=== PATIENT | male | born 1965 | race Caucasian/White ===

== ENCOUNTER 2021-05-07 15:26 | Emergency (ER) | payer MEDICARE, SELFPAY ==
--- NOTE | ~2021-05-07 | CT_ITS ---
EXAMINATION: CT abdomen pelvis w con DATE: 05/07/2021 16:21 INDICATION: Right abdominal pain. TECHNIQUE: Computed tomography (CT) of the abdomen and pelvis was performed with 100 mL Omnipaque 350 intravenous contrast. Automated exposure control and iterative reconstruction technique were employe d. The dose-length product was 283.82 mGy-cm. COMPARISON: CT abdomen and pelvis 12/17/2016 FINDINGS: There is a 6 mm nodule in right lower lobe. No pleural effusion. The heart size is normal. No pericardial effusion. The liver is normal. 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 The pancreas and adrenal glands are normal. There are two cysts in right kidney measuring up to 2.4 cm. There is a 2 mm stone in right kidney. There are 2 stones in left kidney dann uring up to 4 mm. There is an anastomosis in the rectum. There are no dilated loops of bowel. The hebert endix is normal. There is fat stranding adjacent to the duodenum, consistent with duodenitis. There a re no pathologically enlarged lymph nodes. There is no free intraperitoneal fluid. There is moderate lower lumbar spondylosis. IMPRESSION: 1. Duodenitis. 2. 6 mm pulmonary nodule, probably benign. Noncontrast low-dose chest CT is recommended in 6 months. Reviewed, dictated and finalized at location [facility]. IMPRESSION: 1. Duodenitis. 2. 6 mm pulmonary nodule, probably benign. Noncontrast low-dose chest CT is rec ommended in 6 months.
[2021-05-07 15:29] VITALS: BP 124/78; PULSE 96; RESP 20; TEMP 36.7; O2SAT 99
[2021-05-07 15:47] LABS: Basophils Absolute Auto 0.1 K/mm3 (0.0-0.1); Basophils Percent Auto 0.7 % (0.2-1.2); Eosinophils Absolute Auto 0.2 K/mm3 (0-0.3); Eosinophils Percent Auto 2.9 % (0-4.4); Hematocrit 45.5 % (42.0-52.0); Hemoglobin 14.8 g/dL (14.0-18.0); Immature Granulocyte Absolute 0.02 K/mm3 (0.00-0.031); Immature Granulocyte Percent A 0.2 % (0-0.5); Lymphocytes Absolute Auto 2.63 K/mm3 (0.9-3.2); Lymphocytes Percent Auto 31.6 % (18.3-44.2); Mean Corpuscular HGB Conc 32.5 g/dl (32-36); Mean Platelet Volume 9.7 fl (7.4-10.4); Monocytes Absolute Auto 0.9 K/mm3 (0.1-0.6); Monocytes Percent Auto 11.2 % (2.6-8.5); Neutrophils Absolute Auto 4.4 K/mm3 (1.3-6.7); Neutrophils Percent Auto 53.4 % (45.5-73.1); Platelet Count Result 248 k/mm3 (150-375); Red Blood Count 5.29 M/mm3 (4.6-6.20); Red Cell Distribution Width 13.4 % (11.5-14.5); White Blood Count 8.3 K/mm3 (4.5-10.0)
[2021-05-07 15:58] LABS: Alanine Aminotransferase 17 U/L (4-50); Albumin Level 4.5 g/dL (3.5-5.1); Alkaline Phosphatase 46 U/L (38-126); Anion Gap 10 mmol/L (8-16); Aspartate Amino Transferase 42 U/L (17-59); Bilirubin,Total 0.5 mg/dL (0.2-1.3); Blood Urea Nitrogen 14 mg/dL (9-20); Calcium 9.5 mg/dL (8.4-10.2); Carbon Dioxide 24 mmol/L (22-30); Chloride 107 mmol/L (98-107); Estimated CRCL calculation 67 ml/min; Estimated Glomerular Filt Rate > 60; Glucose 91 mg/dL (75-110); Lipase 55 U/L (23-300); Potassium 4.1 mmol/L (3.4-5.0); Sodium 141 mmol/L (137-145)
--- NOTE | 2021-05-07 16:04 | ED.ABDPAIN ---
HPI - Abdominal Pain General Chief Complaint: Abdominal Pain Stated Complaint: abd pain/sweats Time Seen by Provider: 05/07/21 15:53 Source: RN notes reviewed History of Present Illness HPI narrative: Patient presents to emergency department from home for abdominal pain. Patient states that symptoms began 3 days ago he states for the past 2 days he has had some generalized abdominal pain as well as nausea vomiting and diarrhea but states that today the nausea vomiting improved but he continues have pain in his right upper quadrant pain described as sharp and stabbing does not radiate he denies any fevers or chills chest pain shortness of breath or any other symptoms states he is not taking pain medication today patient states he has been taking a large amount of ibuprofen as he has chronic neck pain Related Data Allergies Allergy/AdvReac Type Severity Reaction Status Date / Time tramadol Allergy Unknown Nausea and Verified 05/07/21 15:56 Vomiting NSAIDS (Non-Steroidal AdvReac Mild STOMACH Verified 05/07/21 15:56 Anti-Inflamma UPSET hydrocodone AdvReac Unknown GI UPSET Verified 05/07/21 15:56 Review of Systems Review of Systems: Narrative: Gen.: Denies fevers or chills ENT: Denies congestion Respiratory: Denies shortness of breath or cough CV: Denies chest pain or palpitations GI: See HPI denies burning, urgency, frequency or hematuria Musculoskeletal: Denies back pain or muscle pain Neuro: Denies numbness, tingling, weakness or focal weakness Skin: Denies rash Except as documented, all other systems reviewed and negative PMFSH Past Medical History Medical History (Updated 05/07/21 @ 16:48 by Clif Mathew DO) Patient denies significant medical history Family History Family History (Updated 06/11/16 @ 23:19 by DOCTOR UNKNOWN) Mother Family history of diabetes mellitus in first degree relative Social History Social History (Updated 05/07/21 @ 16:05 by Clif Mathew DO) Smoking status: Never smoker Alcohol intake: current Exam Narrative: Exam Narrative: APPEARANCE: No acute distress, nontoxic, resting in bed HEENT: Normocephalic, atraumatic, OMM RESPIRATORY: No respiratory distress, clear to auscultation bilaterally with no rhonchi wheezing or rales CARDIOVASCULAR: RRR s murmur ABDOMINAL: Soft nondistended tender palpation in epigastric right upper quadrant, no tenderness left upper quadrant, left lower quadrant right lower quadrant no rebound or guarding MUSCULOSKELETAl: Moves all extremities. No clubbing, cyanosis or edema. NEURO: Awake and alert. Following commands, speech normal, no focal deficits SKIN:: Warm, dry. Normal Color PSYCHIATRIC: Normal affect/mood Course Course Emergency Course: Called discussed with Dr. Monroe for GI presentation work-up recommends patient be started on Protonix 40 mg twice a day follow-up in the office to be scheduled for endoscopy Patient states that they are feeling much better at this time. States abdominal pain has improved.. Repeat abdominal exam shows the patient's abdomen to be soft with no surgical abdomen present discussed with patient results of workup and diagnosis. Discussed need for follow-up with primary care physician, reasons to return to the emergency department in proper use of medication. Patient understands and agrees to current treatment plan. Discussed with patient decreasing use of ibuprofen and using Tylenol instead Vital Signs Vital signs: Vital Signs Temperature 98.0 F 05/07/21 15:29 Pulse Rate 96 05/07/21 15:29 Respiratory Rate 20 05/07/21 15:29 Blood Pressure 124/78 05/07/21 15:29 Pulse Oximetry 99 05/07/21 15:29 Temperature 98.0 F 05/07/21 15:29 Pulse Rate 96 05/07/21 15:29 Respiratory Rate 20 05/07/21 15:29 Blood Pressure 124/78 05/07/21 15:29 Pulse Oximetry 99 05/07/21 15:29 MDM - Abdominal Pain MDM Narrative Medical decision making narrative: Patient's abdomen is soft without sig
[2021-05-07] MEDS: SODIUM CHLORIDE 0.9% IV 1,000 ML 999 ML IV CONT (16:19)
[2021-05-07 16:23] LABS: Add Urine Microscopic? YES; Appearance Urine Clear (Clear); Bacteria Urine Trace /hpf; Bilirubin Urine Negative (Negative); Blood Urine 2+ (Negative); Color Urine Yellow (Yellow); Glucose Urine UA Negative (Negative); Ketones Urine Negative (Negative); Leukocyte Esterase Ur Negative LEU/UL (Negative); Mucus Urine Rare /lpf; Nitrate Urine Negative (Negative); Protein Urine Negative (Negative); RBC Urine 0-2 /hpf (0-2); Specific Grav Ur 1.018 (1.001-1.035); Urobilinogen Urine Negative mg/dL (<2.0); WBC Urine 0-3 /hpf
[2021-05-07] MEDS: PANTOPRAZOLE SODIUM IV 40 MG VIAL IV PUSH (16:48)
[2021-05-07 17:41] VITALS: BP 125/78; PULSE 88; RESP 18; O2SAT 100
== END 2021-05-07 17:43 | disposition home or self-care (01) ==
PROVIDERS: Emergency Medicine; Emergency Provider Emergency Medicine
DX: K29.80 Duodenitis without bleeding (principal)
CPT/HCPCS: 36415; 74177; 80053; 81001; 83690; 85025; 96361; 96374; 99284; C9113; J7030; Q9967

== ENCOUNTER → 2021-05-16 01:16 | Outpatient (CLI) | payer MEDICARE, SELFPAY ==
[2021-05-16 16:44] LABS: SARS-CoV-2 RNA PCR Negative
== END ==
PROVIDERS: Visit Provider Internal Medicine Gastroenterology
DX: Z01.812 Encounter for preprocedural laboratory examination (principal); Z20.822 Contact with and (suspected) exposure to COVID-19
CPT/HCPCS: C9803; U0003; U0005

== ENCOUNTER 2021-05-20 01:41 | Day surgery (SDC) | payer MEDICARE, SELFPAY ==
[2021-05-14 10:48] VITALS: BMI 22.7
[2021-05-20 10:00] VITALS: BP 109/78; PULSE 61; RESP 18; TEMP 36; O2SAT 100; BMI 22.8
[2021-05-20] MEDS: LACTATED RINGERS 1,000 ML 150 ML IV CONT (10:07)
--- NOTE | 2021-05-20 10:57 | PM.HPGS ---
History of Present Illness History of Present Illness Consent: Risks, benefits, and alternatives have been discussed and questions answered. Patient agrees to proceed with procedure. Chief complaint: duodenitis Narrative: Osmel Esquivel is a 55 year old male with right upper quadrant pain, nausea and vomiting. He has been on NSAIDs and is suspected of having an ulcer. CT scan showed duodenitis with stranding around the duodenum. He is also having colonoscopy for screening Review of Systems Review of Systems: All systems reviewed & are unremarkable except as noted in HPI and below PMFSH Past Medical History Medical History Patient denies significant medical history Family History Family History Mother Family history of diabetes mellitus in first degree relative Social History Social History Smoking packs per day: 1 Smoking cigarettes per day: 20.0 Years smoked: 40 Smoking pack-years: 40.00 Smoking status: Current every day smoker Tobacco type: cigarettes Additional smoking assessment comments: CUTTING BACK CURRENTLY DOWN TO HALF A PACK A DAY Alcohol intake: current Substance use: current Substance use type: marijuana Other substance usage details: MEDICAL CARD Living arrangements: with family Spiritual care concerns: No Meds Home Medications and Allergies Home Medications Medication Instructions Recorded Confirmed Type pantoprazole [Protonix] 40 mg PO BID #40 tablet 05/07/21 05/20/21 Rx Allergies Allergy/AdvReac Type Severity Reaction Status Date / Time tramadol Allergy Severe Gastrointestinal Verified 05/20/21 09:57 Upset NSAIDS (Non-Steroidal AdvReac Mild STOMACH Verified 05/20/21 09:57 Anti-Inflamma UPSET Vital Signs Vital Signs - 24 hr 05/20/21 10:00 Temperature 36.0 C L Pulse Rate 61 Respiratory Rate 18 Blood Pressure 109/78 Pulse Oximetry 100 Exam Const: General: alert Orientation/consciousness: patient oriented x3 Resp: Auscultation: clear to auscultation bilaterally Cardio: Rhythm: regular rhythm GI: GI Palp: Yes Soft to palpation and No Tenderness to palpation present (GI) Neuro: General: patient oriented x3 Assessment and Plan Assessment and plan (1) Abnormal CT scan, gastrointestinal tract: Code(s): R93.3 - Abnormal findings on diagnostic imaging of other parts of digestive tract Status: Acute Assessment and Plan: EGD with possible biopsy or dilatation or cautery. (2) Colon cancer screening: Code(s): Z12.11 - Encounter for screening for malignant neoplasm of colon Status: Acute Assessment and Plan: Colonoscopy with possible biopsy or polypectomy or cautery or injection of substances.
--- NOTE | 2021-05-20 11:07 | WPDANESEPPF ---
Anes - Initial Pre Proc Eval Procedure: Operation Date: 05/20/21 11:00 Proposed Procedures p Esophagogastroduodenoscopy - Usman Monroe MD Date/Time: 05/20/21 11:07 Surgeon: Usman Monroe MD Pre Op Diagnosis: duodenitis Patient Data Age: 55 Gender: M Height: 1.78 m Weight: 72.2 kg Last Vital Signs Temp 96.8 F L 05/20/21 10:00 Pulse 61 05/20/21 10:00 Resp 18 05/20/21 10:00 BP 109/78 05/20/21 10:00 Pulse Ox 100 05/20/21 10:00 Allergies Allergy/AdvReac Type Severity Reaction Status Date / Time tramadol Allergy Severe Gastrointestinal Verified 05/20/21 09:57 Upset NSAIDS (Non-Steroidal AdvReac Mild STOMACH Verified 05/20/21 09:57 Anti-Inflamma UPSET Home Medications Medication Instructions Recorded Confirmed Type pantoprazole [Protonix] 40 mg PO BID #40 tablet 05/07/21 05/20/21 Rx Patient hx anesthesia problems: none Family hx anesthesia problems: none PMFSH Past Medical History Medical History (Updated 05/20/21 @ 11:07 by Mynor Youngblood MD) GERD (gastroesophageal reflux disease) H/O: CVA (cerebrovascular accident) was found to have a glioblastoma at that time secondary to; had definitive surgery Patient denies significant medical history Family History Family History Mother Family history of diabetes mellitus in first degree relative Social History Social History Smoking packs per day: 1 Smoking cigarettes per day: 20.0 Years smoked: 40 Smoking pack-years: 40.00 Smoking status: Current every day smoker Tobacco type: cigarettes Additional smoking assessment comments: CUTTING BACK CURRENTLY DOWN TO HALF A PACK A DAY Alcohol intake: current Substance use: current Substance use type: marijuana Other substance usage details: MEDICAL CARD Living arrangements: with family Spiritual care concerns: No Anes - Eval Final PreProcedure Day of Procedure 05/20/21 11:07 Patient weight: normal Heart: regular rate and rhythm Lungs: clear to auscultation Airway: Mallampati scale class II Neurological: alert and oriented Last oral intake: >/= 8 hours ASA classification: III Emergent: no Anesthetic plan: proceed Anesthesia type and monitoring: general GIVS and standard monitoring Informed Consent: The patient's anesthetic plan and its attendant risks and benefits were discussed with the patient/family/POA. Questions were solicited and answers provided to the satisfaction of the patient/family/POA.
[2021-05-20] MEDS: BENZOCAINE (*SP) 60 ML SPRAY CAN (HURRICAINE) 1 SPRAY MUCOUS MEM (11:46)
[2021-05-20] MEDS: SIMETHICONE ORAL SUSPENSION 20 MG/0.3 ML 30 ML BOTTLE 0.6 ML IRRIGATION (11:51)
[2021-05-20 11:59] VITALS: BP 101/67; PULSE 54; RESP 22; O2SAT 99
[2021-05-20 12:09] VITALS: BP 93/66; PULSE 55; RESP 20; O2SAT 100
[2021-05-20 12:19] VITALS: BP 99/65; PULSE 54; RESP 18; O2SAT 100
== END 2021-05-20 12:31 | disposition home or self-care (01) ==
PROVIDERS: Visit Provider Internal Medicine Gastroenterology
PROC: 0DJ08ZZ Inspection of Upper Intestinal Tract, Via Natural or Artificial Opening Endoscopic (ICD-10-PCS; CPT 43235; principal; 2021-05-20 11:00)
DX: K44.9 Diaphragmatic hernia without obstruction or gangrene (principal); K29.80 Duodenitis without bleeding; K21.9 Gastro-esophageal reflux disease without esophagitis; Z86.73 Personal history of transient ischemic attack (TIA), and cerebral infarction without residual deficits; F17.210 Nicotine dependence, cigarettes, uncomplicated; F12.90 Cannabis use, unspecified, uncomplicated
CPT/HCPCS: 43239; 87081; 88305; J2704; J7120

== ENCOUNTER 2021-05-24 16:04 | Emergency (ER) | payer MEDICARE, SELFPAY ==
[2021-05-24 16:15] VITALS: BP 119/74; PULSE 82; RESP 16; TEMP 37.2; O2SAT 99
[2021-05-24] MEDS: TETANUS,DIPHTHERIA,AC PERTUSSIS ADULT (0.5 ML) BOOSTRIX IM (16:40)
--- NOTE | 2021-05-24 16:47 | ED.GENADULT ---
HPI - General Adult General Chief complaint: Wound/Laceration Stated complaint: Laceration on foot Source: patient Mode of arrival: ambulatory Limitations: no limitations History of Present Illness HPI narrative: This is a 56-year-old male who presents for evaluation of laceration to the inner aspect of the right foot. He indicates he was walking in his garage barefooted when he cut himself on a piece of metal. Reports a minimal amount of pain in the affected area, without descriptive quality or numerical rating. Denies loss of range of motion and paresthesias. He is not diabetic. Date of last tetanus unknown. He is ambulatory into the facility today. No additional complaints or concerns. Related Data Allergies Allergy/AdvReac Type Severity Reaction Status Date / Time tramadol Allergy Severe Gastrointestinal Verified 05/24/21 17:01 Upset NSAIDS (Non-Steroidal AdvReac Mild STOMACH Verified 05/24/21 17:01 Anti-Inflamma UPSET Review of Systems Review of Systems: Narrative: CONSTITUTIONAL: Denies fever, chills, or sweats. EYES: Denies visual changes, redness, or discharge. ENT: Denies rhinorrhea, congestion, sore throat, or otalgia. CARDIOVASCULAR: Denies chest pain, palpitations, or edema. RESPIRATORY: Denies cough or dyspnea. GASTROINTESTINAL: Denies abdominal pain, nausea, vomiting, or diarrhea. GENITOURINARY: Denies dysuria or hematuria. SKIN: Reports laceration of the right foot. Denies rash or itching. MUSCULOSKELETAL: Reports pain in the right foot. Denies back pain NEUROLOGIC: Denies headache, numbness, dizziness, or weakness. PSYCHIATRIC: Denies anxiety or depression. [facility] Past Medical History Medical History (Updated 05/24/21 @ 17:42 by Jose Donnelly, HARDWARE MANAGER, ) Duodenitis GERD (gastroesophageal reflux disease) H/O: CVA (cerebrovascular accident) was found to have a glioblastoma at that time secondary to; had definitive surgery Patient denies significant medical history Family History Family History Mother Family history of diabetes mellitus in first degree relative Social History Social History Smoking packs per day: 1 Smoking cigarettes per day: 20.0 Years smoked: 40 Smoking pack-years: 40.00 Smoking status: Current every day smoker Tobacco type: cigarettes Additional smoking assessment comments: CUTTING BACK CURRENTLY DOWN TO HALF A PACK A DAY Alcohol intake: current Substance use: current Substance use type: marijuana Other substance usage details: MEDICAL CARD Spiritual care concerns: No Exam Narrative: Exam Narrative: GENERAL: Well-appearing, well-nourished, and in no acute distress. HEAD: Normocephalic, atraumatic. EYES: PERRLA and EOMI. ENT: Nares clear, no rhinorrhea or epistaxis. Mucous membranes moist. Oropharynx without tonsillar hypertrophy exudate or other lesions. Bilateral TMs pearly valdez nonbulging NECK: Supple. No adenopathy or masses. No carotid bruits or JVD CHEST: Clear to auscultation. No respiratory distress. No wheezes rales or rhonchi HEART: Regular rate and rhythm. No murmur heard. Normal peripheral pulses. ABDOMEN: Soft, nontender, nondistended, normal active bowel sounds. EXTREMITIES: Normal range of motion. No edema. SKIN: Approximately 1.5 cm laceration in a flap formation overlying the dorsal aspect of the medial right foot NEURO: No focal deficits. Alert and oriented x3. PSYCH: Normal mood and affect. Course Course Emergency Course: This is a 56-year-old male that presented with complaints of laceration to the right foot. After a thorough irrigation, laceration was repaired with 5 sutures and patient tolerated well. He was updated on tetanus. He was advised to follow-up in 7 to 10 days for suture removal. Advised on wound care. He should seek emergent medical condition for fever, chills, purulent drainage.
== END 2021-05-24 17:51 | disposition home or self-care (01) ==
PROVIDERS: Emergency Provider Nurse Practitioner
DX: S91.311A Laceration without foreign body, right foot, initial encounter (principal); W45.8XXA Other foreign body or object entering through skin, initial encounter; Z23 Encounter for immunization; F17.210 Nicotine dependence, cigarettes, uncomplicated; K21.9 Gastro-esophageal reflux disease without esophagitis; Z86.73 Personal history of transient ischemic attack (TIA), and cerebral infarction without residual deficits; Z85.841 Personal history of malignant neoplasm of brain
CPT/HCPCS: 12001; 90471; 90715; 99212; G0463

== ENCOUNTER 2022-07-29 11:34 | Emergency (ER) | payer MEDICARE, SELFPAY ==
--- NOTE | 2022-07-29 11:36 | PC.NURSE ---
patient presented to triage stating he was having a mini stroke then proceeded to leave the triage area to go outside to make a phone call before he checked in to be seen. then left again to take another phone call before checkrd in
[2022-07-29 11:44] VITALS: BP 127/86; PULSE 84; RESP 16; TEMP 36.6; O2SAT 99
--- NOTE | 2022-07-29 11:53 | ECG_ITS ---
Measurements Intervals [place] Rate: 56 P: 66 ME: 170 QRS: 63 QRSD: 96 T: 54 QT: 403 QTc: 391 Interpretive Statements SINUS BRADYCARDIA DELAYED PRECORDIAL R/S TRANSITION BASELINE ARTIFACT- I, III, AVR, AVL, AVF BORDERLINE ECG NO PREVIOUS ECG AVAILABLE FOR COMPARISON Electronically Signed On 07-29-2022 13:39:50 CDT by Harman Concepcion D.O.
[2022-07-29 12:47] LABS: Basophils Percent Auto 0.6 % (0.2-1.2); Eosinophils Absolute Auto 0.1 K/mm3 (0-0.3); Eosinophils Percent Auto 1.9 % (0-4.4); Hematocrit 46.5 % (42.0-52.0); Hemoglobin 15.2 g/dL (14.0-18.0); Immature Granulocyte Absolute 0.02 K/mm3 (0.00-0.031); Immature Granulocyte Percent A 0.3 % (0-0.5); Lymphocytes Absolute Auto 1.81 K/mm3 (0.9-3.2); Lymphocytes Percent Auto 26.5 % (18.3-44.2); Mean Corpuscular HGB Conc 32.7 g/dl (32-36); Mean Corpuscular Hemoglobin 28.5 pg (26-34); Mean Corpuscular Volume 87.1 fl (80-100); Mean Platelet Volume 9.8 fl (7.4-10.4); Monocytes Absolute Auto 0.6 K/mm3 (0.1-0.6); Monocytes Percent Auto 8.2 % (2.6-8.5); Neutrophils Absolute Auto 4.3 K/mm3 (1.3-6.7); Neutrophils Percent Auto 62.5 % (45.5-73.1); Platelet Count Result 247 k/mm3 (150-375); Red Blood Count 5.34 M/mm3 (4.6-6.20); Red Cell Distribution Width 13.5 % (11.5-14.5); White Blood Count 6.8 K/mm3 (4.5-10.0)
[2022-07-29 13:05] LABS: Alanine Aminotransferase 18 U/L (6-50); Albumin Level 4.6 g/dL (3.5-5.1); Alkaline Phosphatase 59 U/L (38-126); Anion Gap 11 mmol/L (8-16); Aspartate Amino Transferase 24 U/L (17-59); Bilirubin,Total 0.5 mg/dL (0.2-1.3); Blood Urea Nitrogen 14 mg/dL (9-20); Calcium 9.3 mg/dL (8.4-10.2); Carbon Dioxide 23 mmol/L (22-30); Chloride 107 mmol/L (98-107); Estimated CRCL calculation 66 ml/min; Estimated Glomerular Filt Rate > 60; Glucose 91 mg/dL (65-110); Potassium 3.9 mmol/L (3.4-5.0); Sodium 141 mmol/L (137-145)
[2022-07-29 13:23] VITALS: BP 105/77; PULSE 58; RESP 15; O2SAT 99
[2022-07-29] MEDS: MECLIZINE HCL 25 MG TABLET PO (13:24)
--- NOTE | 2022-07-29 14:01 | ED.NEUROSD ---
HPI - Neuro Symptoms/Deficit General Chief Complaint: Neuro Symptoms/Deficit Stated Complaint: possible seizure Time Seen by Provider: 07/29/22 12:00 History of Present Illness HPI Narrative: Patient is a 57-year-old male who presents ER with dizziness. Reports he got up out of bed today and became very dizzy. He was sweaty and nauseated. Fell onto the ground. He was laying there shaking and felt his head hit the ground couple times. No bleeding or swelling. No blood thinners. Denies fevers or chills. Spinning dizziness is what was perceived. Symptoms continue to worsen if he shakes his head yes or does position changes. They are not as intense as earlier. No sinus congestion or sore throat or cough. No ringing in the ears or muffled hearing. Related Data Allergies Allergy/AdvReac Type Severity Reaction Status Date / Time tramadol Allergy Severe Gastrointestinal Verified 05/24/21 17:01 Upset NSAIDS (Non-Steroidal AdvReac Mild STOMACH Verified 05/24/21 17:01 Anti-Inflamma UPSET Review of Systems Review of Systems: All systems reviewed & are unremarkable except as noted in HPI and below Constitutional: Constitutional: Denies chills, Denies fatigue and Denies fever(s) ENT: Denies nasal congestion and Denies sore throat Cardiovascular: Cardiovascular: Denies chest pain, Denies rapid heart rate and Denies radiating jaw, neck or arm pain Respiratory: Respiratory: Denies cough, Denies dyspnea and Denies wheezing Gastrointestinal: Gastrointestinal: Denies abdominal pain, Reports nausea and Denies vomiting Neurologic: Reports dizziness, Denies syncope, Denies headache(s), Denies focal weakness and Denies numbness PMFSH Past Medical History Medical History (Updated 07/29/22 @ 14:22 by Hayden Parker MD) Alopecia universalis Duodenitis GERD (gastroesophageal reflux disease) H/O: CVA (cerebrovascular accident) 2/2 pituitary tumor Kidney stones Patient denies significant medical history Spinal stenosis Surgical History Surgical History (Updated 07/29/22 @ 14:19 by Hayden Parker MD) H/O brain surgery 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 History of left heart catheterization Family History Family History Mother Family history of diabetes mellitus in first degree relative Social History Social History Smoking packs per day: 1 Smoking cigarettes per day: 20.0 Years smoked: 40 Smoking pack-years: 40.00 Smoking status: Current every day smoker Tobacco type: cigarettes Additional smoking assessment comments: CUTTING BACK CURRENTLY DOWN TO HALF A PACK A DAY Alcohol intake: current Substance use: current Substance use type: marijuana Other substance usage details: MEDICAL CARD Spiritual care concerns: No Exam Narrative: GENERAL: Well-appearing, well-nourished, and in no acute distress. HEAD: Normocephalic, atraumatic. EYES: PERRL and EOMI. ENT: TMs normal bilaterally. NECK: Supple. CHEST: Clear to auscultation. No respiratory distress. HEART: Regular rate and rhythm. Normal peripheral pulses. ABDOMEN: Soft, nontender, nondistended. EXTREMITIES: Normal range of motion. No edema. NEURO: Reproducible dizziness with looking down. Alert and oriented x3. Ambulates with steady gait. PSYCH: Normal mood and affect. Course Course Emergency Course: Resting comfortably. Symptoms improved but not totally abated with meclizine. Discussed home treatment and patient verbalized understanding. Charting had said that patient had glioblastoma in the past but patient reports that is not true and he had a benign pituitary tumor that was excised and he required no chemo or radiation. Vital Signs Vital signs: Vital Signs Temperature 97.9 F 07/29/22 11:44 Pulse Rate 84 07/29/22 11:44 Respiratory Rate 16 07/29/22 11:44 Blood Pressure 127/86 07/29/22 1
[2022-07-29 15:04] VITALS: BP 111/75; PULSE 70; RESP 14; O2SAT 98
== END 2022-07-29 15:05 | disposition home or self-care (01) ==
PROVIDERS: Emergency Medicine; Emergency Provider Emergency Medicine
DX: R42 Dizziness and giddiness (principal); K21.9 Gastro-esophageal reflux disease without esophagitis; Z87.442 Personal history of urinary calculi; Z86.73 Personal history of transient ischemic attack (TIA), and cerebral infarction without residual deficits; F17.210 Nicotine dependence, cigarettes, uncomplicated; R00.1 Bradycardia, unspecified
CPT/HCPCS: 36415; 80053; 85025; 93005; 99283; A9270

== ENCOUNTER 2023-04-24 16:02 | Emergency (ER) | payer MEDICARE, SELFPAY ==
--- NOTE | ~2023-04-24 | CT_ITS ---
EXAMINATION: CT abdomen pelvis wo con DATE: 04/24/2023 17:47 INDICATION: Left lower quadrant abdominal pain. History kidney stones. TECHNIQUE: Computed tomography (CT) of the abdomen and pelvis was performed without intravenous contr ast. Automated exposure control and iterative reconstruction technique were employed. Exam dose: 311 .65 mGy-cm total exam DLP. 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 Minimal disc oid atelectasis or scarring, posterior basilar right lower lobe. Normal heart size. No pericardial or pleural effusion. Small sliding hiatal hernia. Status post cholecystectomy. The liver, spleen, pancreas, and adrenal glands are unremarkable. Posterior right renal cyst, documented on 05/03/2021 CT abdomen pelvis. 3 mm nonobstructing right renal calculus and approximately 2 mm and 5.5 mm nonobstructing left renal calculi. The urinary bladder is unremarkable. There is prostate enlargement and calcification. Normal caliber of the abdominal aorta. No intraperitoneal or retroperitoneal or pelvic mass lesion or adenopathy or ascites. There is a suture line at the rectosigmoid area. The appendix appears normal. No bowel obstruction, bowel wall thickening, pneumatosis or intraperiton eal free air is detected. Moderately prominent degenerative disc disease and minimal retrolisthesis at L5-S1. No suspicious ost eolytic or osteoblastic lesions are noted. IMPRESSION: Small nonobstructing calculus of each kidney; no ureteral calculus or hydroureteronephro sis is detected Prostate enlargement and calcification Suture line, rectosigmoid area Reviewed, dictated and finalized at [facility]. Reviewed, dictated and finalized at location [facility]. IMPRESSION: Small nonobstructing calculus of each kidney; no ureteral calculus or hydroureteronephrosis is detected Prostate enlargement and calcification Suture line, rectosigmoid area
[2023-04-24 16:11] VITALS: PULSE 44; RESP 16; TEMP 36.8; O2SAT 100
--- NOTE | 2023-04-24 16:16 | ECG_ITS ---
Measurements Intervals [place] Rate: 46 P: 64 MD: 185 QRS: 77 QRSD: 93 T: 25 QT: 464 QTc: 406 Interpretive Statements SINUS BRADYCARDIA OTHERWISE NORMAL ECG COMPARED TO ECG 07/29/2022 12:32:28 HEART RATE IS REDUCED NO OTHER DIFFERENCE Electronically Signed On 04-25-2023 11:17:03 CDT by Anibal Gregorio M.D.
[2023-04-24 16:47] LABS: Basophils Absolute Auto 0.1 K/mm3 (0.0-0.1); Basophils Percent Auto 0.4 % (0.2-1.2); Eosinophils Absolute Auto 0.2 K/mm3 (0-0.3); Eosinophils Percent Auto 1.3 % (0-4.4); Hematocrit 46.4 % (42.0-52.0); Hemoglobin 15.1 g/dL (14.0-18.0); Immature Granulocyte Absolute 0.05 K/mm3 (0.00-0.031); Immature Granulocyte Percent A 0.4 % (0-0.5); Lymphocytes Absolute Auto 1.26 K/mm3 (0.9-3.2); Lymphocytes Percent Auto 10.2 % (18.3-44.2); Mean Corpuscular HGB Conc 32.5 g/dl (32-36); Mean Corpuscular Hemoglobin 28.4 pg (26-34); Mean Corpuscular Volume 87.2 fl (80-100); Mean Platelet Volume 9.4 fl (7.4-10.4); Monocytes Absolute Auto 0.6 K/mm3 (0.1-0.6); Neutrophils Absolute Auto 10.2 K/mm3 (1.3-6.7); Neutrophils Percent Auto 82.7 % (45.5-73.1); Platelet Count Result 256 k/mm3 (150-375); Red Blood Count 5.32 M/mm3 (4.6-6.20); Red Cell Distribution Width 13.4 % (11.5-14.5); White Blood Count 12.4 K/mm3 (4.5-10.0)
[2023-04-24] MEDS: SODIUM CHLORIDE 0.9% IV 1,000 ML 999 ML IV CONT (16:49)
[2023-04-24] MEDS: MORPHINE SULFATE (*CRX) 4 MG/ML INJ IV PUSH (16:49)
[2023-04-24] MEDS: ONDANSETRON INJ 4 MG/2 ML VIAL IV PUSH (16:49)
[2023-04-24 16:55] LABS: Alanine Aminotransferase 26 U/L (6-50); Albumin Level 4.4 g/dL (3.5-5.1); Alkaline Phosphatase 56 U/L (38-126); Anion Gap 5 mmol/L (8-16); Aspartate Amino Transferase 32 U/L (17-59); Bilirubin,Total 0.5 mg/dL (0.2-1.3); Blood Urea Nitrogen 16 mg/dL (9-20); Calcium 8.7 mg/dL (8.4-10.2); Carbon Dioxide 27 mmol/L (22-30); Chloride 107 mmol/L (98-107); Estimated CRCL calculation 67 ml/min; Estimated Glomerular Filt Rate > 60; Glucose 129 mg/dL (65-110); Lipase 94 U/L (23-300); Potassium 3.7 mmol/L (3.4-5.0); Sodium 139 mmol/L (137-145)
--- NOTE | 2023-04-24 16:55 | ED.ABDPAIN ---
HPI - Abdominal Pain General Chief Complaint: Abdominal Pain Stated Complaint: kidney stone Time Seen by Provider: 04/24/23 16:28 History of Present Illness HPI narrative: Patient is a 57-year-old male who presents today with left lower quadrant abdominal pain. Reports that began this morning was dull. Over the last 3 hours does become quite sharp. Associated with nausea and vomiting. Has history of kidney stones. No fevers chills or sweats. No testicular pain. Denies history of diverticulitis. No alleviating factors. Related Data Allergies Allergy/AdvReac Type Severity Reaction Status Date / Time tramadol Allergy Severe Gastrointestinal Verified 05/24/21 17:01 Upset NSAIDS (Non-Steroidal AdvReac Mild STOMACH Verified 05/24/21 17:01 Anti-Inflamma UPSET Review of Systems Review of Systems: All systems reviewed & are unremarkable except as noted in HPI and below Constitutional: Constitutional: Denies chills, Denies fatigue and Denies fever(s) Cardiovascular: Cardiovascular: Denies chest pain and Denies rapid heart rate Respiratory: Respiratory: Denies cough and Denies dyspnea Gastrointestinal: Gastrointestinal: Reports abdominal pain, Denies diarrhea, Reports nausea and Reports vomiting Genitourinary: Genitourinary: Denies hematuria, Denies dysuria, Denies testicular pain and Denies urinary frequency [facility] Past Medical History Medical History (Updated 04/24/23 @ 18:48 by Hayden Parker MD) Alopecia universalis Duodenitis GERD (gastroesophageal reflux disease) H/O: CVA (cerebrovascular accident) 2/2 pituitary tumor Kidney stones Patient denies significant medical history Spinal stenosis Surgical History Surgical History (Updated 07/29/22 @ 14:19 by Hayden Parker MD) H/O brain surgery 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 History of left heart catheterization Family History Family History Mother Family history of diabetes mellitus in first degree relative Social History Social History Smoking packs per day: 1 Smoking cigarettes per day: 20.0 Years smoked: 40 Smoking pack-years: 40.00 Smoking status: Current every day smoker Tobacco type: cigarettes Additional smoking assessment comments: CUTTING BACK CURRENTLY DOWN TO HALF A PACK A DAY Alcohol intake: current Substance use: current Substance use type: marijuana Other substance usage details: MEDICAL CARD Living arrangements: with family Spiritual care concerns: No Exam Narrative: GENERAL: Uncomfortable-appearing, well-nourished, and in no acute distress. HEAD: Normocephalic, atraumatic. Alopecia noted. EYES: PERRL and EOMI. ENT: Mucous membranes moist. CHEST: Clear to auscultation. No respiratory distress. HEART: Regular rate and rhythm. Normal peripheral pulses. ABDOMEN: Soft, nontender, nondistended. EXTREMITIES: Normal range of motion. No edema. SKIN: Warm, dry, no rash. NEURO: Alert and oriented x3. PSYCH: Normal mood and affect. Course Course Emergency Course: Patient resting comfortably after treatment. Suspect he may have passed a kidney stone on given blood in his urine. Patient appropriate for discharge home. He is bradycardic which was mentioned to him. He has no symptoms. Recommend he discuss this with his primary care doctor. He is on no rate control medications. Vital Signs Vital signs: Vital Signs Temperature 98.3 F 04/24/23 16:11 Pulse Rate 44 L 04/24/23 16:11 Respiratory Rate 16 04/24/23 16:11 Pulse Oximetry 100 04/24/23 16:11 Oxygen Delivery Room Air 04/24/23 16:11 Temperature 98.3 F 04/24/23 16:11 Pulse Rate 44 L 04/24/23 16:11 Respiratory Rate 16 04/24/23 16:11 Pulse Oximetry 100 04/24/23 16:11 Oxygen Delivery Room Air 04/24/23 16:11 MDM - Abdominal Pain Lab Data 04/24/23 16:36
[2023-04-24 18:02] LABS: Appearance Urine Cloudy (Clear); Bacteria Urine None Seen /hpf; Bilirubin Urine Negative (Negative); Blood Urine 3+ (Negative); Color Urine Yellow (Yellow); Glucose Urine UA Negative (Negative); Ketones Urine Trace mg/dL (Negative); Leukocyte Esterase Ur Trace LEU/UL (Negative); Need Manual Microscopic Reviewed; Nitrate Urine Negative (Negative); Non Pathogenic Casts 0-2; Protein Urine 2+ mg/dL (Negative); RBC Urine 21-50 /hpf (0-2); Specific Grav Ur 1.022 (1.001-1.035); Squamous Epithelial Cell Urine None seen /hpf (Few); WBC Urine 0-5 /hpf; pH Urine 5.5 (5.0-9.0)
[2023-04-24 18:08] LABS: Add Urine Microscopic? YES
[2023-04-24 19:25] VITALS: BP 115/64; PULSE 71; RESP 12; O2SAT 99
== END 2023-04-24 19:30 | disposition home or self-care (01) ==
PROVIDERS: Emergency Provider Emergency Medicine; PCP Family Medicine
DX: N20.0 Calculus of kidney (principal); K21.9 Gastro-esophageal reflux disease without esophagitis; F17.210 Nicotine dependence, cigarettes, uncomplicated; Z86.73 Personal history of transient ischemic attack (TIA), and cerebral infarction without residual deficits; Z87.442 Personal history of urinary calculi; N40.0 Benign prostatic hyperplasia without lower urinary tract symptoms; R00.1 Bradycardia, unspecified
CPT/HCPCS: 36415; 74176; 80053; 81001; 83690; 85025; 93005; 96361; 96374; 96375; 99284; J2270; J2405; J7030

== ENCOUNTER 2024-06-24 19:34 | Emergency (ER) | payer MEDICARE, SELFPAY ==
--- NOTE | ~2024-06-24 | CT_ITS ---
EXAMINATION: CTA brain carotid DATE: 06/24/2024 23:03 INDICATION: Headache. Neck pain. TECHNIQUE: Computed tomographic angiography (CTA) of the head was performed without and with 100 mL O mnipaque-350 intravenous contrast. CTA of the neck was performed with intravenous contrast. Automated exposure control and iterative reconstruction technique were employed. The dose-length product was 1 765.80 mGy-cm. Maximum intensity projection and volume rendered 3D-reconstructions were created by blanca gonzalez technologist on a separate workstation. COMPARISON: None. FINDINGS: HEAD CTA: There is no intracranial hemorrhage, acute infarction, or abnormal intracranial mass lesion . The ventricles are normal in size. There is mucosal thickening in the paranasal sinuses. There is s clerosis of some of the arriaga of the paranasal sinuses, consistent with chronic sinusitis. There are surgical changes of the paranasal sinuses. The mastoid air cells are normal. The orbits are normal. T he vertebral arteries are codominant. There is no significant stenosis of basilar artery or the poste rior cerebral arteries. There is no significant stenosis of the intracranial internal carotid arterie s or anterior or middle cerebral arteries. Anterior communicating artery is normal. The posterior com municating arteries are normal. There is no aneurysm. NECK CTA: There is mild emphysema. There are no pathologically enlarged lymph nodes. There is no sign ificant stenosis of the vertebral arteries. There is no significant plaque in the proximal internal c arotids. There is 0% stenosis of the proximal right internal carotid artery relative to normal dista l artery lumen diameter (NASCET criteria). There is 0% stenosis of the proximal left internal carotid artery relative to normal distal artery lumen diameter. There are changes of anterior fusion procedu re from C4 to C6. There is moderate cervical spondylosis. IMPRESSION: 1. Normal brain. No aneurysm or significant intracranial arterial stenosis. 2. 0% stenosis of the proximal internal carotid arteries relative to normal distal artery lumen diame ters (NASCET criteria). Reviewed, dictated and finalized at location [facility]. IMPRESSION: 1. Normal brain. No aneurysm or significant intracranial arterial stenosis. 2. 0% stenosis of the proximal internal carotid arteries relative to normal dis arianne artery lumen diameters (NASCET criteria).
--- NOTE | ~2024-06-24 | XR_ITS ---
EXAMINATION: XR chest 2V DATE: 06/24/2024 20:40 INDICATION: Chest pain. TECHNIQUE: Frontal and lateral views of the chest were obtained. COMPARISON: Chest 2 views 10/31/2014 FINDINGS: There is no pneumonia, pleural effusion, or pneumothorax. The heart size is normal. Surgica l clips in the right upper quadrant are likely from cholecystectomy. IMPRESSION: 1. No acute cardiopulmonary disease. Reviewed, dictated and finalized at location [facility].
--- NOTE | 2024-06-24 19:36 | ECG_ITS ---
Test Date: 2024-06-24 19:41:49 Measurements Intervals [place] Rate: 89 P: 71 MO: 177 QRS: 48 QRSD: 88 T: 58 QT: 332 QTc: 405 Interpretive Statements SINUS RHYTHM NORMAL ELECTROCARDIOGRAM No previous ECG available for comparison Electronically Signed On 06-25-2024 12:22:26 CDT by Anibal Gregorio M.D.
[2024-06-24 19:46] VITALS: BP 119/79; PULSE 87; RESP 19; O2SAT 97
[2024-06-24 20:01] VITALS: BP 93/76; PULSE 83; RESP 20; O2SAT 99
[2024-06-24 20:10] VITALS: BP 108/68; PULSE 88; RESP 17; TEMP 36.9; O2SAT 100
[2024-06-24 20:20] LABS: Basophils Percent Auto 0.5 % (0.2-1.2); Eosinophils Absolute Auto 0.1 K/mm3 (0-0.3); Eosinophils Percent Auto 0.8 % (0-4.4); Hematocrit 43.7 % (42.0-52.0); Hemoglobin 14.5 g/dL (14.0-18.0); Immature Granulocyte Absolute 0.04 K/mm3 (0.00-0.031); Immature Granulocyte Percent A 0.6 % (0-0.5); Lymphocytes Absolute Auto 0.54 K/mm3 (0.9-3.2); Lymphocytes Percent Auto 8.2 % (18.3-44.2); Mean Corpuscular HGB Conc 33.2 g/dl (32-36); Mean Corpuscular Hemoglobin 28.2 pg (26-34); Mean Platelet Volume 9.9 fl (7.4-10.4); Monocytes Percent Auto 15.4 % (2.6-8.5); Neutrophils Absolute Auto 4.9 K/mm3 (1.3-6.7); Neutrophils Percent Auto 74.5 % (45.5-73.1); Platelet Count Result 212 k/mm3 (150-375); Red Blood Count 5.14 M/mm3 (4.6-6.20); Red Cell Distribution Width 13.2 % (11.5-14.5); White Blood Count 6.6 K/mm3 (4.5-10.0)
[2024-06-24 20:31] LABS: Partial Thromboplastin Time 24.7 Seconds (22.3-36.8)
[2024-06-24 20:34] LABS: Alanine Aminotransferase 16 U/L (6-50); Albumin Level 4.2 g/dL (3.5-5.1); Alkaline Phosphatase 56 U/L (38-126); Anion Gap 11 mmol/L (4-12); Aspartate Amino Transferase 30 U/L (17-59); Bilirubin,Total 0.5 mg/dL (0.2-1.3); Blood Urea Nitrogen 13 mg/dL (9-20); Calcium 8.8 mg/dL (8.4-10.2); Carbon Dioxide 20 mmol/L (22-30); Chloride 104 mmol/L (98-107); Estimated Glomerular Filt Rate > 60; Glucose 83 mg/dL (65-110); Lipase 93 U/L (23-300); Potassium 3.8 mmol/L (3.4-5.0); Sodium 135 mmol/L (137-145)
[2024-06-24 20:46] LABS: Troponin I < 0.012 ng/mL (0.000-0.034)
[2024-06-24 21:10] LABS: INR 1.1; Prothrombin Time 14.6 Seconds (11.1-14.7)
[2024-06-24 21:15] VITALS: PULSE 77; RESP 16; O2SAT 97
[2024-06-24] MEDS: diphenhydrAMINE HCl INJ 50 MG/ML VIAL 25 MG IV PUSH (21:43)
[2024-06-24] MEDS: METOCLOPRAMIDE HCL INJ 10 MG/2 ML VIAL IV PUSH (21:44)
--- NOTE | 2024-06-24 21:52 | ECG_ITS ---
Test Date: 2024-06-24 21:55:49 Measurements Intervals [place] Rate: 78 P: 65 IN: 187 QRS: 49 QRSD: 93 T: 59 QT: 378 QTc: 433 Interpretive Statements SINUS RHYTHM NORMAL ELECTROCARDIOGRAM Compared to ECG 06/24/2024 19:41:49 No significant changes Electronically Signed On 06-25-2024 12:25:12 CDT by Anibal Gregorio M.D.
[2024-06-24 22:21] LABS: Troponin I < 0.012 ng/mL (0.000-0.034)
--- NOTE | 2024-06-24 23:30 | PC.NURSE ---
care and report given to DONI Salgado. all questions answered.
[2024-06-25 00:50] VITALS: BP 104/54; PULSE 64; RESP 16; O2SAT 97
--- NOTE | 2024-06-25 02:42 | ED.CHESTPAIN ---
HPI - Chest Pain General Chief Complaint: Chest Pain Stated Complaint: chest pain Time Seen by Provider: 06/24/24 19:55 History of Present Illness HPI narrative: Patient presents with palpitations and headache, he gets chronic headaches due to prior brain surgery, this is not the worst headache he has had any is no recent trauma. He has also had palpitations in the past and had a Holter monitor placed and currently he no longer has these palpitations, no chest pain or trouble breathing. Does have nausea. Related Data Allergies Allergy/AdvReac Type Severity Reaction Status Date / Time tramadol Allergy Severe Gastrointestinal Verified 05/24/21 17:01 Upset NSAIDS (Non-Steroidal AdvReac Mild STOMACH Verified 05/24/21 17:01 Anti-Inflamma UPSET Review of Systems Review of Systems: All systems reviewed & are unremarkable except as noted in HPI and below PMFSH Past Medical History Medical History (Updated 06/25/24 @ 00:30 by Myrtle Arredondo MD) Alopecia universalis Duodenitis GERD (gastroesophageal reflux disease) H/O: CVA (cerebrovascular accident) 2/2 pituitary tumor Kidney stones Patient denies significant medical history Spinal stenosis Surgical History Surgical History (Updated 07/29/22 @ 14:19 by Hayden Parker MD) H/O brain surgery 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 History of left heart catheterization Family History Family History Mother Family history of diabetes mellitus in first degree relative Social History Social History Smoking packs per day: 1 Smoking cigarettes per day: 20.0 Years smoked: 40 Smoking pack-years: 40.00 Smoking status: Current every day smoker Tobacco type: cigarettes Additional smoking assessment comments: CUTTING BACK CURRENTLY DOWN TO HALF A PACK A DAY Alcohol intake: current Substance use: current Substance use type: marijuana Other substance usage details: MEDICAL CARD Living arrangements: with family Spiritual care concerns: No Exam Narrative: EXAMINATION OF ORGAN SYSTEMS/BODY AREAS: Constitutional: Vital signs per nursing GENERAL: Appears slightly uncomfortable, holding emesis bag HEAD: Normal with no signs of head trauma. EYES: EOMI, conjunctiva normal ENT: Hearing grossly intact LUNGS: Nonlabored breathing. Clear to auscultation bilaterally HEART: [Regular rate and rhythm] ABD: [Soft], [nontender to palpation] EXT: Normal range of motion SKIN: [No rashes or lesions.] NEURO: [Alert and oriented x 3. No gross focal sensory or strength deficits.] Who speech, no facial droop. PSYCH: Normal affect Course Vital Signs Vital signs: Vital Signs Pulse Rate 87 06/24/24 19:46 Respiratory Rate 19 06/24/24 19:46 Blood Pressure 119/79 06/24/24 19:46 Pulse Oximetry 97 06/24/24 19:46 Temperature 98.4 F 06/24/24 20:10 Pulse Rate 64 06/25/24 00:50 Respiratory Rate 16 06/25/24 00:50 Blood Pressure 104/54 L 06/25/24 00:50 Pulse Oximetry 97 06/25/24 00:50 Oxygen Delivery Room Air 06/24/24 20:10 MDM - Chest Pain MDM Narrative Medical decision making narrative: Patient presenting with palpitations and headache, his palpitations have resolved now. Chest pain workup initiated, and since he has had brain surgery in the past but has not follow-up on it, he is agreeable to getting a scan of his head. Migraine cocktail administered, cardiac workup thankfully unremarkable and so was the CT head. EKG shows rate 89, MT 177, QRS 88, QTC 405, normal axis, no ST elevations or depressions on my independent interpretation. On re-evaluation patient feels much better, is asymptomatic, agreeable to outpatient management with cardiology and strict return precautions. Lab Data 06/24/24 20:10 06/24/24 20:10 Labs: Lab Results 06/24/24 06/24/24 Range/Units
== END 2024-06-25 00:52 | disposition home or self-care (01) ==
PROVIDERS: Emergency Provider Emergency Medicine; PCP Family Medicine
DX: R00.2 Palpitations (principal); R51.9 Headache, unspecified; R07.9 Chest pain, unspecified; K21.9 Gastro-esophageal reflux disease without esophagitis; F17.210 Nicotine dependence, cigarettes, uncomplicated; Z86.73 Personal history of transient ischemic attack (TIA), and cerebral infarction without residual deficits; Z87.442 Personal history of urinary calculi
CPT/HCPCS: 36415; 70496; 70498; 71046; 80053; 83690; 84484; 85025; 85610; 85730; 93005; 96374; 96375; 99284; J1200; J2765; Q9967

== ENCOUNTER 2025-08-29 16:04 | Emergency (ER) | payer MEDICARE, SELFPAY ==
--- NOTE | ~2025-08-29 | CT_ITS ---
CT abdomen pelvis wo con INDICATION:flank pain, abd pain, hx kidney stones . COMPARISON: None. TECHNIQUE: Axial 2.5 mm images of the abdomen were obtained without IV or oral contrast. Diagnostic sensitivity is limited due to lack of IV contrast. FINDINGS: The lung bases are clear. The liver parenchyma is unremarkable. No intrahepatic mass or ductal dilatation is evident. The patient has had a cholecystectomy. The pancreas and spleen are normal in appearance. The adrenal glands are symmetric in size. The kidneys are unremarkable. Mild left hydronephrosis secondary to a 5 mm stone in the proximal left ureter. No right hydronephrosis. Evaluation of the stomach and bowel loops are limited due to lack of oral contrast. There is no evidence of bowel obstruction or acute appendicitis. The bladder and rectum are normal. No free intraperitoneal fluid or air is evident. There is no significant retroperitoneal lymphadenopathy. The aorta, visceral vessels and renal arteries demonstrate normal caliber. The lower thoracic and lumbar vertebrae are in normal alignment. IMPRESSION: Mild left hydronephrosis secondary to a 5 mm stone in the proximal left ureter. All CT scans at this facility are performed using low dose modulation techniques as appropriate to perform exam including the following: automated exposure control; use of iterative reconstruction technique; adjustment of the mA and/or kV according to patient size (this includes techniques or standardized protocols for targeted exams where dose is matched to indication/reason for exam). Reviewed, dictated and finalized at location S. IMPRESSION: Mild left hydronephrosis secondary to a 5 mm stone in the proximal left ureter. All CT scans at this facility are performed using low dose modulation techniqu es as appropriate to perform exam including the following: automated exposure c ontrol; use of iterative reconstruction technique; adjustment of the mA and/or kV according to patient size (this includes techniques or standardized protocol s for targeted exams where dose is matched to indication/reason for exam).
[2025-08-29 16:37] VITALS: BP 156/76; PULSE 52; RESP 16; TEMP 36.6; O2SAT 99
--- NOTE | 2025-08-29 16:41 | ED_ITS ---
HPI - Abdominal Pain General Chief Complaint: Urogenital-Male <EKATERINA Pearson Last Filed: 08/29/25 19:26> Stated Complaint: I'm pretty sure I have a kidney stone <EKATERINA Pearson Last Filed: 08/29/25 19:26> Time Seen by Provider: 08/29/25 16:41 <EKATERINA Pearson Last Filed: 08/29/25 19:26> Focused HPI: This is a 60-year-old male that presents emergency department for left-sided abdominal/flank pain. Reports associated nausea and vomiting. Reports history of kidney stones. GENERAL: Uncomfortable, well-nourished, and in mild acute distress due to pain HEAD: Normocephalic, atraumatic. CHEST: Clear to auscultation. ?No respiratory distress. HEART: Regular rate and rhythm.? NEURO: ?Alert and oriented x3. Patient screened in triage and initial orders placed.? ?Additional care and disposition to be based upon?diagnostic testing and treatment. <Ana Maria Valle PA-C - Last Filed: 08/29/25 19:26> Focused HPI: This is a 60-year-old male that presents emergency department for left-sided abdominal/flank pain. Reports associated nausea and vomiting. Reports history of kidney stones. GENERAL: Uncomfortable, well-nourished, and in mild acute distress due to pain HEAD: Normocephalic, atraumatic. CHEST: Clear to auscultation. ?No respiratory distress. HEART: Regular rate and rhythm.? NEURO: ?Alert and oriented x3. Patient screened in triage and initial orders placed.? ?Additional care and disposition to be based upon?diagnostic testing and treatment. <EKATERINA Silveira Last Filed: 08/29/25 19:20> Source: patient <EKATERINA Silveira Last Filed: 08/29/25 19:20> Mode of arrival: ambulatory <EKATERINA Silveira Last Filed: 08/29/25 19:20> Limitations: no limitations <EKATERINA Silveira Last Filed: 08/29/25 19:20> History of Present Illness HPI narrative: Agree with above HPI. Reports pain began around 1:00 p.m. today. Does radiate to his left lower abdomen. States he has not urinated since the pain began. Denied difficulty urinating this morning. Denies hematuria. Does not currently follow with urologist. <Liana Johansen PA-C - Last Filed: 08/29/25 19:20> Related Data Allergies/Adverse Reactions: Allergies Allergy/AdvReac Type Severity Reaction Status Date / Time tramadol Allergy Severe Gastrointestinal Verified 08/29/25 16:04 Upset NSAIDS (Non-Steroidal AdvReac Mild STOMACH Verified 08/29/25 16:04 Anti-Inflamma UPSET <Ana Maria Valle PA-C - Last Filed: 08/29/25 19:26> Review of Systems 2 Review of Systems: All systems reviewed & are unremarkable except as noted in HPI. <Liana Johansen PA-C - Last Filed: 08/29/25 19:20> All systems reviewed & are unremarkable except as noted in HPI and below < Liana Johansen PA-C - Last Filed: 08/29/25 19:20> [facility] Past Medical History Medical History: Medical History Alopecia universalis Kidney stones Spinal stenosis Duodenitis GERD (gastroesophageal reflux disease) H/O: CVA (cerebrovascular accident) 2/2 pituitary tumor Patient denies significant medical history <Ana Maria Valle PA-C - Last Filed: 08/29/25 19:26> Surgical History Surgical History: Surgical History H/O brain surgery 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 History of left heart catheterization <Ana Maria Valle PA-C - Last Filed: 08/29/25 19:26> Family History Family History: Family History Mother Family history of diabetes mellitus in first degree relative <Ana Maria Valle PA-C - Last Filed: 08/29/25 19:26> Social History Social History: Social History Smoking packs per day: 1 Smoking cigarettes per day: 20.0 Years smoked: 40 Smoking pack-years: 40.00 Smoking status: Current every day smoker Tobacco type: cigarettes Additional smoking assessment comments: CUTTING BACK CURRENTLY DOWN TO HALF A PACK A DAY Alcohol intake: current Substance use: current Substance use type: marijuana Other substance usage details: MEDICAL CARD Living arrangements: with family Spiritual care concerns: No <Ana Maria Valle PA-C - Last Filed: 08/29/25 19:26> Exam 2 Narrative: GENERAL: Uncomfortable appearing, well-nourished, non-toxic, in moderate acute distress due to pain. HEAD: Normocephalic, atraumatic. RESPIRATORY: Airway patent, respirations nonlabored. Clear to auscultation bilaterally, no rales, rhonchi, wheezing. CARDIOVASCULAR: Regular rate and rhythm without murmurs, rubs, or gallops. ABDOMINAL: Soft, tenderness to palpation left lower quadrant, nondistended. Normoactive BS. Positive CVA tenderness on left MUSCULOSKELETAL: Moves all extremities. No gross deformities. SKIN: Warm, dry, normal color. NEURO: A&O X3. Speech clear. Cranial nerves II-XII grossly intact. Steady gait. No ataxic movements. PSYCHIATRIC: Appropriate mood and affect. Normal interaction. <Liana Johansen PA-C - Last Filed: 08/29/25 19:20> Course Vital Signs Vital signs: Vital Signs Temperature 97.9 F 08/29/25 16:37 Pulse Rate 52 L 08/29/25 16:37 Respiratory Rate 16 08/29/25 16:37 Blood Pressure 156/76 H 08/29/25 16:37 Pulse Oximetry 99 08/29/25 16:37 Oxygen Delivery Room Air 08/29/25 16:37 Temperature 97.9 F 08/29/25 16:37 Pulse Rate 52 L 08/29/25 16:37 Respiratory Rate 16 08/29/25 16:37 Blood Pressure 156/76 H 08/29/25 16:37 Pulse Oximetry 99 08/29/25 16:37 Oxygen Delivery Room Air 08/29/25 16:37 <Ana Maria Valle PA-C - Last Filed: 08/29/25 19:26> Vital Signs Temperature 97.9 F 08/29/25 16:37 Pulse Rate 52 L 08/29/25 16:37 Respiratory Rate 16 08/29/25 16:37 Blood Pressure 156/76 H 08/29/25 16:37 Pulse Oximetry 99 08/29/25 16:37 Oxygen Delivery Room Air 08/29/25 16:37 Temperature 97.9 F 08/29/25 16:37 Pulse Rate 52 L 08/29/25 16:37 Respiratory Rate 16 08/29/25 16:37 Blood Pressure 156/76 H 08/29/25 16:37 Pulse Oximetry 99 08/29/25 16:37 Oxygen Delivery Room Air 08/29/25 16:37 <EKATERINA Silveira Last Filed: 08/29/25 19:20> MDM - Abdominal Pain MDM Narrative Medical decision making narrative: Patient presented to ED with left flank and left-sided abdominal pain that began today. History of kidney stones of feel similar. Vital signs stable upon arrival. Patient uncomfortable appearing. Pain and nausea medicine, fluids ordered. Cbc with blood cell count of 12.4. Kidney function is stable. Creatinine 1.26. No recent records to compare to. Fluids are ongoing. UA with trace leuk esterase, 6-10 RBC. No other signs of infection. CT scan of abdomen/pelvis was obtained showing a 5 mm left proximal ureteral stone. Mild left hydronephrosis. Consistent with clinical picture. Patient feeling improved with supportive therapy. Pain is very manageable at this time. He would like to try going home. Offered to prescribe pain and nausea medicine for home, however he politely declined. Has Zofran at home, would prefer not to take opioids. Will start on Flomax. Will provide information for follow-up with urology. Given strict return precautions. Patient in agreement with plan. Discharged in stable condition. <EKATERINA Silveira Last Filed: 08/29/25 19:20> Medical Records Attestation: I reviewed the patient's medical records. <EKATERINA Silveira Last Filed: 08/29/25 19:20> Lab Data Attestation: I reviewed the patient's lab results. <Liana Johansen PA-C - Last Filed: 08/29/25 19:20> Result diagrams: 08/29/25 16:50 08/29/25 16:50 <Ana Maria Valle PA-C - Last Filed: 08/29/25 19:26> Labs: Lab Results 08/29/25 08/29/25 Range/Units 16:50 17:51 WBC 12.4 H (4.5-10.0) K/mm3 RBC 5.56 (4.6-6.20) M/mm3 Hgb 15.5 (14.0-18.0) g/dL Hct 48.0 (42.0-52.0) % MCV 86.3 (80-100) fl MCH 27.9 (26-34) pg MCHC 32.3 (32-36) g/dl RDW 13.1 (11.5-14.5) % Plt Count 274 (150-375) k/mm3 MPV 9.8 (7.4-10.4) fl Immature Gran % (Auto) 0.6 H (0-0.5) % Neut % (Auto) 79.2 H (45.5-73.1) % Lymph % (Auto) 12.4 L (18.3-44.2) % [place] % (Auto) 6.7 (2.6-8.5) % Eos % (Auto) 0.6 (0-4.4) % Baso % (Auto) 0.5 (0.2-1.2) % Lymph # (Auto) 1.53 (0.9-3.2) K/mm3 [place] # (Auto) 0.8 H (0.1-0.6) K/mm3 Eos # (Auto) 0.1 (0-0.3) K/mm3 Baso # (Auto) 0.1 (0.0-0.1) K/mm3 Abs Immat Gran (auto) 0.07 H (0.00-0.031) K/mm3 Absolute Neuts (auto) 9.8 H (1.3-6.7) K/mm3 Absolute Nucleated RBC 0.000 (0.0-0.012) K/mm3 Nucleated RBC % 0.0 (0.0-0.2) % Sodium 136 L (137-145) mmol/L Potassium 4.0 (3.4-5.0) mmol/L Chloride 105 (98-107) mmol/L Carbon Dioxide 22 (22-30) mmol/L Anion Gap 9 (4-12) mmol/L BUN 17 (9-20) mg/dL Creatinine 1.26 (0.7-1.3) mg/dL Estim Creat Clear Calc 56 ml/min Estimated GFR 59 (59 - ) Glucose 147 H (65-110) mg/dL Calcium 9.1 (8.4-10.2) mg/dL Total Bilirubin 0.5 (0.2-1.3) mg/dL AST 26 (17-59) U/L ALT 20 (6-50) U/L Alkaline Phosphatase 62 (38-126) U/L Total Protein 8.3 H (6.3-8.2) g/dL Albumin 4.6 (3.5-5.1) g/dL Lipase 78 (23-300) U/L Urine Color Yellow (Yellow) Urine Appearance Cloudy H (Clear) Urine pH 5.0 (5.0-9.0) Ur Specific [place] 1.025 (1.001-1.035) Urine Protein 1+ H (Negative) mg/dL Urine Glucose (UA) Negative (Negative) mg/dL Urine Ketones Trace H (Negative) mg/dL Ur Blood (Man) 3+ H (Negative) Urine Nitrate Negative (Negative) Urine Bilirubin Negative (Negative) Urine Urobilinogen 1.0 (<2.0) mg/dL Leukocyte Esterase Rfl Trace H (Negative) RAMESH/UL Urine RBC 6-10 H (0-2) /hpf Urine WBC 0-5 (0-3) /hpf Ur Squamous Epith Cells None seen (Few) /hpf Urine Bacteria None seen /hpf Urine Casts 3-5 <Ana Maria Valle PA-C - Last Filed: 08/29/25 19:26> Lab Results 08/29/25 08/29/25 Range/Units 16:50 17:51 WBC 12.4 H (4.5-10.0) K/mm3 RBC 5.56 (4.6-6.20) M/mm3 Hgb 15.5 (14.0-18.0) g/dL Hct 48.0 (42.0-52.0) % MCV 86.3 (80-100) fl MCH 27.9 (26-34) pg MCHC 32.3 (32-36) g/dl RDW 13.1 (11.5-14.5) % Plt Count 274 (150-375) k/mm3 MPV 9.8 (7.4-10.4) fl Immature Gran % (Auto) 0.6 H (0-0.5) % Neut % (Auto) 79.2 H (45.5-73.1) % Lymph % (Auto) 12.4 L (18.3-44.2) % [place] % (Auto) 6.7 (2.6-8.5) % Eos % (Auto) 0.6 (0-4.4) % Baso % (Auto) 0.5 (0.2-1.2) % Lymph # (Auto) 1.53 (0.9-3.2) K/mm3 [place] # (Auto) 0.8 H (0.1-0.6) K/mm3 Eos # (Auto) 0.1 (0-0.3) K/mm3 Baso # (Auto) 0.1 (0.0-0.1) K/mm3 Abs Immat Gran (auto) 0.07 H (0.00-0.031) K/mm3 Absolute Neuts (auto) 9.8 H (1.3-6.7) K/mm3 Absolute Nucleated RBC 0.000 (0.0-0.012) K/mm3 Nucleated RBC % 0.0 (0.0-0.2) % Sodium 136 L (137-145) mmol/L Potassium 4.0 (3.4-5.0) mmol/L Chloride 105 (98-107) mmol/L Carbon Dioxide 22 (22-30) mmol/L Anion Gap 9 (4-12) mmol/L BUN 17 (9-20) mg/dL Creatinine 1.26 (0.7-1.3) mg/dL Estim Creat Clear Calc 56 ml/min Estimated GFR 59 (59 - ) Glucose 147 H (65-110) mg/dL Calcium 9.1 (8.4-10.2) mg/dL Total Bilirubin 0.5 (0.2-1.3) mg/dL AST 26 (17-59) U/L ALT 20 (6-50) U/L Alkaline Phosphatase 62 (38-126) U/L Total Protein 8.3 H (6.3-8.2) g/dL Albumin 4.6 (3.5-5.1) g/dL Lipase 78 (23-300) U/L Urine Color Yellow (Yellow) Urine Appearance Cloudy H (Clear) Urine pH 5.0 (5.0-9.0) Ur Specific [place] 1.025 (1.001-1.035) Urine Protein 1+ H (Negative) mg/dL Urine Glucose (UA) Negative (Negative) mg/dL Urine Ketones Trace H (Negative) mg/dL Ur Blood (Man) 3+ H (Negative) Urine Nitrate Negative (Negative) Urine Bilirubin Negative (Negative) Urine Urobilinogen 1.0 (<2.0) mg/dL Leukocyte Esterase Rfl Trace H (Negative) RAMESH/UL Urine RBC 6-10 H (0-2) /hpf Urine WBC 0-5 (0-3) /hpf Ur Squamous Epith Cells None seen (Few) /hpf Urine Bacteria None seen /hpf Urine Casts 3-5 <Liana Johansen PA-C - Last Filed: 08/29/25 19:20> Imaging Data Attestation: I personally reviewed and interpreted this imaging study as follows: < Liana Johansen PA-C - Last Filed: 08/29/25 19:20> Radiologist's impression: ITS Impressions Abdomen/Pelvis CT 08/29/25 17:03 IMPRESSION: Mild left hydronephrosis secondary to a 5 mm stone in the proximal left ureter. All CT scans at this facility are performed using low dose modulation techniques as appropriate to perform exam including the following: automated exposure control; use of iterative reconstruction technique; adjustment of the mA and/or kV according to patient size (this includes techniques or standardized protocols for targeted exams where dose is matched to indication/reason for exam). <Ana Maria Valle PA-C - Last Filed: 08/29/25 19:26> ITS Impressions Abdomen/Pelvis CT 08/29/25 17:03 IMPRESSION: Mild left hydronephrosis secondary to a 5 mm stone in the proximal left ureter. All CT scans at this facility are performed using low dose modulation techniques as appropriate to perform exam including the following: automated exposure control; use of iterative reconstruction technique; adjustment of the mA and/or kV according to patient size (this includes techniques or standardized protocols for targeted exams where dose is matched to indication/reason for exam). <EKATERINA Silveira Last Filed: 08/29/25 19:20> Discharge Plan Discharge Clinical Impression: Calculus of proximal left ureter <EKATERINA Pearson Last Filed: 08/29/25 19:26> Patient Disposition: Home <EKATERINA Pearson Last Filed: 08/29/25 19:26> Condition: Stable <EKATERINA Pearson Last Filed: 08/29/25 19:26> Instructions: Antibiotic Form, Kidney Stones (ED), How to Strain Your Urine (ED) <EKATERINA Pearson Last Filed: 08/29/25 19:26> Additional Instructions: Take Flomax daily as prescribed. Continue Tylenol and Ibuprofen as needed for pain. Zofran for nausea. Stay well hydrated. Strain urine to collect stone. Follow-up with urology for further evaluation if needed. Return to the ED if you experience worsening or severe pain, unable to keep down food/drink, fevers, uncontrollable nausea/vomiting, unable to urinate, or any other symptoms of concern. <EKATERINA Pearson Last Filed: 08/29/25 19:26> Patient Language: [place] <EKATERINA Pearson Last Filed: 08/29/25 19:26> Prescriptions: New tamsulosin [Flomax] 0.4 mg capsule 0.4 mg PO DAILY Qty: 7 0RF No Action pantoprazole [Protonix] 40 mg tablet,delayed release (DR/EC) 40 mg PO BID Qty: 40 0RF meclizine 12.5 mg tablet 12.5 mg PO TID PRN (Reason: dizziness) Qty: 14 0RF <EKATERINA Pearson Last Filed: 08/29/25 19:26> Follow-up/Referrals: Leighton,Kash Sebastian MD [Primary Care Provider, Unknown] Primo Morrow MD [Physician, Urology] Referral Note: UROLOGY <Ana Maria Valle PA-C - Last Filed: 08/29/25 19:26> Time of Disposition: 19:16 <Ana Maria Valle PA-C - Last Filed: 08/29/25 19:26> 19:16 <Liana Johansen PA-C - Last Filed: 08/29/25 19:20>
[2025-08-29] MEDS: ONDANSETRON INJ 4 MG/2 ML VIAL IV PUSH (16:51)
[2025-08-29] MEDS: MORPHINE SULFATE (*CRX) 4 MG/ML INJ IV PUSH (16:51)
[2025-08-29] MEDS: SODIUM CHLORIDE 0.9% IV 1,000 ML 999 ML IV CONT (17:13)
[2025-08-29] MEDS: METOCLOPRAMIDE HCL INJ 10 MG/2 ML VIAL IV PUSH (17:13)
[2025-08-29 17:17] LABS: Alanine Aminotransferase 20 U/L (6-50); Albumin Level 4.6 g/dL (3.5-5.1); Alkaline Phosphatase 62 U/L (38-126); Anion Gap 9 mmol/L (4-12); Aspartate Amino Transferase 26 U/L (17-59); Bilirubin,Total 0.5 mg/dL (0.2-1.3); Blood Urea Nitrogen 17 mg/dL (9-20); Calcium 9.1 mg/dL (8.4-10.2); Carbon Dioxide 22 mmol/L (22-30); Chloride 105 mmol/L (98-107); Estimated CRCL calculation 56 ml/min; Estimated Glomerular Filt Rate 59; Glucose 147 mg/dL (65-110); Lipase 78 U/L (23-300); Potassium 4.0 mmol/L (3.4-5.0); Sodium 136 mmol/L (137-145); Total Protein 8.3 g/dL (6.3-8.2)
[2025-08-29 17:21] LABS: Hematocrit 48.0 % (42.0-52.0); Hemoglobin 15.5 g/dL (14.0-18.0); Immature Granulocyte Percent A 0.6 % (0-0.5); Lymphocytes Absolute Auto 1.53 K/mm3 (0.9-3.2); Mean Corpuscular HGB Conc 32.3 g/dl (32-36); Mean Corpuscular Hemoglobin 27.9 pg (26-34); Mean Corpuscular Volume 86.3 fl (80-100); Nucleated Red Blood Cells Absolute Auto 0.000 K/mm3 (0.0-0.012); Nucleated Red Blood Cells Perc 0.0 % (0.0-0.2); Platelet Count Result 274 k/mm3 (150-375); Red Blood Count 5.56 M/mm3 (4.6-6.20); White Blood Count 12.4 K/mm3 (4.5-10.0)
--- OUTSIDE RECORDS SUMMARY | 2025-08-29 17:48 | XMS_ITS | Clinical Summary ---
Author Organization [facility] Address [address] [facility] [place] [address] Care Team Providers Care Truck Shop Mechanic Name Role Phone Junie Garcia RN, Anne C DO Primary Care Provider [phone] Source Comments [facility],non-owned Affiliates and Associated Physician Practices is amultiple site organization consisting of ambulatory clinics and hospital sitesin [place], [place], [place] and [place]. This disclosure is being madepursuant to the Care Everywhere program and may not contain all information available regarding this patient. Last updated 18.[facility] Allergies Active Allergy Reactions Criticality Noted Date Comments Tramadol Nausea and/or Vomiting 09/21/2017 flulike symptoms, excessive sweating Medications * Be aware that medications may not be up to date on this document. Alwaysverify current medications with the patient. No known medications Active Problems Problem Noted Date Diagnosed Date Esotropia, left eye 12/08/2018 Monocular diplopia of both eyes 12/08/2018 Amblyopia of eye, left 12/08/2018 Healthcare maintenance 11/30/2018 Overview (11/30/2018): Men's Routine Health Maintenance - CRC screening: declined - Prostate cancer screening: NA - Tobacco use: current smoker (40 pack year history) - Lung cancer screening: NA - AAA screening: NA - Diabetes screening: ordered - Obesity/physical activity/diet counseling: discussed - Lipid screenin10/26/2018 - Statin: atorvastatin 10 mg - ASA: 81 mg - Hep C: NA - HIV: NA - Chlamydia: NA - Gonorrhea: NA - Depression screening: discussed - EtOH abuse screening (more than 4 drinks in one day or 14 in a week w/n the past year): 0 - Fall prevention: NA - Dental exam: declined - Eye exam: scheduled 04/02/2019 - Immunizations - HPV: NA - Influenza: declined - Prevnar: NA - Pneumovax: declined - TdaP/Td: declined - Zoster: declined -Advanced Directive: discussed Tobacco use 11/30/2018 Abnormal echocardiogram 11/30/2018 Homeless single person 11/30/2018 Pituitary macroadenoma 04/14/2017 Assessment & Plan (03/26/2020 9:22 AM CDT): Ms. Daly underwent trans-sphenoidal decompression for a pituitary tumor for increasing headache. He states he had a bitemporal VF defect prior to surgery but our last VF failed to demonstrate it. Following decompression, he recognized improvement of his temporal VF bilaterally. The MRI from 11/2019 does not show chiasmal touch. His last exam in 07/2019 shows acuity best corrected to 20/20 OU, a normal HVF; He reports no new problems , other than reading issues for which he requested the refraction to be mailed to him from his last visit He is discharged from neuro-ophthalmology and advised to see comp clinic /closer to home annually. Nichole Patrick MD Lumbago 02/23/2012 Alopecia Frequent headaches Kidney stones Overview (11/30/2018): passes a stone every 1-3 months Cervical radiculopathy Overview (11/30/2018): s/p C4/5, C5/6 ACDF in 2012 Hemorrhoids Ganglion cyst of both wrists Pituitary tumor Resolved Problems Problem Noted Date Diagnosed Date Resolved Date Chronic cholecystitis 09/26/20172018 Family History Medical History Relation Name Comments CAD (Coronary Artery Disease) Father COPD - Chronic Obstructive Pulmonary Disease Father sclerosis Alzheimer's Disease Maternal Grandmother Cancer - Other Maternal Grandmother unkno wn Anesthesia Reaction Mother Cancer - Breast Mother Cancer - Lung Mother Cancer - Other Mother unknown type Cancer - Rectal Mother Diabetes - Type 2 Mother Hypertension Mother Other - Genitourinary Mother kidney stones Other - Neurologic Mother TIA Cancer - Lung Sister Depression Neg Hx Seizures Neg Hx Relation Name Status Comments Father Maternal Grandfather Maternal Grandmother Mother Alive Paternal Grandfather Paternal Grandmother Sister Social History Tobacco Use Types Packs/Day Years Used Date Smoking Tobacco: Every Day Cigarettes 1 40 Smokeless Tobacco: Never Tobacco Cessation:Ready to Q uit: No; Counseling Given: No Comments:down to 4 or 5 cigs/day Alcohol Use Standard Drinks/Week Comments No 0 (1 standard drink = 0.6 oz pur e alcohol) Sex and Gender Information Value Date Recorded Sex Assigned at Not on file Legal Sex Male 9:03 PM CDT Gender Identity Not on file Sexual Orientation Not on file Last Filed Vital Signs Vital Sign Reading Time Taken Comments Blood Pressure 111/70 11/21/2019 12:50 PM STRUCTURAL STEEL FITTER Pulse 60 11/21/2019 12:50 PM STRUCTURAL STEEL FITTER Temperature 36.3 C (97.3 F) 11/21/2019 12:50 PM STRUCTURAL STEEL FITTER Respiratory Rate 20 11/21/2019 12:50 PM STRUCTURAL STEEL FITTER Oxygen Saturation 99% 11/21/2019 12:50 PM STRUCTURAL STEEL FITTER Inhaled Oxygen Concentration - - Weight 75.8 kg (167 lb) 11/21/2019 12:50 PM STRUCTURAL STEEL FITTER Height 177.8 cm (5' 10) 11/21/2019 12:50 PM STRUCTURAL STEEL FITTER Body Mass Index 23.96 11/21/2019 12:50 PM STRUCTURAL STEEL FITTER Plan of Treatment Health Maintenance Due Date Last Done Comments COLOGUARD (AGES 45-75) - COL ON CA SCREENING 1966 COLON MONITORING 1966 COLONOSCOPY - COLON CA SCREENING 1966 CT COLONOGRAPHY - COLON CA SCREENING 1966 Colorectal Cancer Screening 1966 FIT - COLON CA SCREENING 1966 FLEX SIG - COLON CA SCREENING 1966 MEDICARE AWV 12 MONTHS 1966 HIV SCREENING 1981 HEPATITIS C SCREENING 05/18/1984 DTAP/TDAP/TD VACCINES (1 - Tdap) 1985 HEPATITIS B VACCINE (1 of 3 - 19+ 3-dose series) 1985 PNEUMOCOCCAL VACCINE 50+ (1 of 2 - PCV) 1985 ZOSTER VACCINE (1 of 2) 2016 LIPID TESTING 10/26/2023 10/26/2018 DEPRESSION SCREENING 11/14/2024 COVID-19 VACCINE (1 - 2023-2 5 season) 2025 INFLUENZA VACCINE (#1) 2025 08/14/2022 HIB VACCINE Aged Out No longer eligi ble based on patient's age to complete this topic HPV VACCINE Aged Out No longer eligi ble based on patient's age to complete this topic MENINGOCOCCAL (Group B) VACC INE SHARED DECISION-MAKING Aged Out No longer eligibl e based on patient's age to complete this topic MENINGOCOCCAL GROUPS A/C/Y/W VACCINE Aged Out No longer eligible b ased on patient's age to complete this topic Goals Goal Patient Goal Type Associated Problems Recent Progress Patient-Stated? Author Depression Lifestyle No Tianna Agustin, FILM SPOOLER-CIRCUIT CLERK Medical Devices Implanted Type Area Transportation Superintendent Device Identifier Shelf Expiration Date Model / Serial / Lot Graft Tissue Drgn + Bvn Clgn Mtrx 2x2in Implanted:Qty: 1 on 06/28/2019 by Hugh Ceja MD at [facility] 02/11/2022 [id number] / / [id number] Procedures Procedure Name Priority Date/Time Associated Diagnosis Comments LIPID PROFILE Routine 10/26/2018 11:14 AM STRUCTURAL STEEL FITTER H/O stroke without residual deficits from Last 3 Months or Most Recently Relevant to Health Maintenance Results * LIPID PROFILE (10/26/2018 11:14 AM STRUCTURAL STEEL FITTER) Cholesterol Total 162 <200 mg/dL 10/26/2018 12:12 PM [facility] HDL 49 >40 mg/dL 10/26/2018 12:12 PM [facility] Comment: ATP III Classification of HDL Cholesterol: <40 mg/dL: Considered a major risk factor. >60 mg/dL: Considered a negative risk factor. LDL Calculated 98 <100 mg/dL 10/26/2018 12:12 PM [facility] Comment: ATP III Classification of LDL Cholesterol: <100 mg/dL: Optimal 100 - 129 mg/dL: Near Optimal/Above Optimal 130 - 159 mg/dL: Borderline High 160 - 189 mg/dL: High >190 mg/dL: Very High Triglycerides 73 <150 mg/dL 10/26/2018 12:12 PM [facility] Comment: ATP III Classification of Triglycerides: <150 mg/dL: Normal 150 - 199 mg/dL: Borderline High 200 - 400 mg/dL: High >500 mg/dL: Very High Blood BLOOD SPECIMEN / Unknown Lab Venipuncture / Unknown 10/26/2018 11:14 AM STRUCTURAL STEEL FITTER 10/26/2018 11:18 AM STRUCTURAL STEEL FITTER Christy Rivera FILM SPOOLER-CIRCUIT CLERK LAB - CHEMISTRY ORDERABL ES Final Result [address] [phone] from Last 3 Months or Most Recently Relevant to Health Maintenance Insurance [place] [address] MEDICARE MEDICARE * Guarantor: OSMEL DALY Account Type Relation to Patient Date of Phone Billing Address Personal/Family 1965 [place] Advance Directives * Full Code (Latest Code Status on File) Date Activated Date Inactivated Comments 06/28/2019 7:57 PM 07/02/2019 4:56 PM * Full Code Date Activated Date Inactivated Comments 09/26/2017 12:45 PM 09/27/2017 1:07 PM Care Teams Truck Shop Mechanic Relationship Specialty Start Date End Date Debora Ding DO [address] [place] [address] PCP - General 12/04/18 Junie Garcia, RN 09/26/17
--- OUTSIDE RECORDS SUMMARY | 2025-08-29 17:48 | XMS_ITS | Clinical Summary ---
Author Organization [facility] [address] [facility] Address [address] [place] [address] Care Team Providers Care Well Servicing Rig Operator Name Role Phone Unavailable Primary Care Provider Unavailabl e Allergies Active Allergy Reactions Criticality Noted Date Comments Tramadol Nausea And Vomiting 09/21/2017 flulike symptoms, excessive sweating Medications No known medications Active Problems Problem Noted Date Diagnosed Date Cervical radiculopathy 03/16/2023 3 Overview (03/16/2023): s/p C4/5, C5/6 ACDF in 2012 Frequent headaches 03/16/2023 03/16/2023 Ganglion cyst of both wrists 03/16/202301/2023 Hemorrhoids 03/16/2023 03/16/2023 Kidney stones 03/16/2023 03/16/2023 Overview (03/16/2023): passes a stone every 1-3 months Pituitary tumor 03/16/2023 03/16/2023 Alopecia 03/16/2023 03/16/2023 Atypical chest pain 03/16/2023 Incidental lung nodule, > 3mm and < 8mm 08/11/20 21 Overview (08/11/2021): CT at [place] on 05/07/2021 IMPRESSION: 1. Duodenitis 2. 6 mm pulmonary nodule, probably benign. Noncontrast LDCT recommended in 6 months. Assessment & Plan (08/11/2021 11:52 AM CDT): CT at [place] on 05/07/2021 IMPRESSION: 1. Duodenitis 2. 6 mm pulmonary nodule, probably benign. Noncontrast LDCT recommended in 6 months. Plan LDCT in 10/2021 -- again, pt declines at this point due to insurance/finances Treatment delay due to patient choice 08/08/2021 Assessment & Plan (08/08/2021 11:39 AM CDT): The patient has declined imaging and referrals due to financial strains. States he does not have the money to be able to pay the co-pays for visits and or imaging. He states he is applying for Medicaid and hopes that may work out. I also provided him with information regardi [facility] financial assistance for him to investigate also. Instructed him to call as soon as desires to have orders to pursue his chronic concerns. Also instructed him that if he has increase in his symptoms he is to go to the ER immediately as care will be provided as needed regardless of his ability to pay. He voiced understanding and appreciation. BMI 23.0-23.9, adult 08/07/2021 Assessment & Plan (08/07/2021 11:42 AM CDT): Weight/BMI is in healthy range. Continue healthy lifestyle to maintain. Family history of early CAD 07/12/2021 Assessment & Plan (07/12/2021 5:47 PM CDT): Check labs Family history of diabetes mellitus 07/12/2021 Assessment & Plan (07/12/2021 5:47 PM CDT): Check labs Fatigue 07/12/2021 Assessment & Plan (07/12/2021 6:01 PM CDT): Probably multifactorial. Check labs and followup to re-evaluate Prostate cancer screening 07/12/2021 Assessment & Plan (07/12/2021 5:48 PM CDT): Check labs Neuropathy 07/12/2021 Assessment & Plan (07/12/2021 5:57 PM CDT): Check labs. Discussed medication options but will wait for labs before considering. Gastroesophageal reflux disease without esophagi tis 07/12/2021 Assessment & Plan (08/08/2021 11:17 AM CDT): Needs to followup with Dr. Monroe for definitive treatment. If his midepigastric pain returns, he may call and I will restart the PPI. Assessment & Plan (07/12/2021 5:50 PM CDT): Continue per Dr. Monroe Did 30 days of PPI and now has stopped. Encouraged to followup with Dr. Monroe because he is still having sxs. I would encourage restarting PPI. Pituitary microadenoma 07/12/2021 Overview (07/12/2021): Surgical resection 11/2019 Dr. Ceja at [facility] Assessment & Plan (08/08/2021 11:19 AM CDT): Stressed importance of followup with Dr. Ceja. He voices understanding but is limited by finances. Assessment & Plan (07/12/2021 5:56 PM CDT): Surgical resection 11/2019 Dr. Ceja at [facility] Encouraged to followup as instructed by Dr. Ceja History of kidney stones 07/12/2021 Assessment & Plan (08/08/2021 11:18 AM CDT): Offered referral to Urology as he states he has multiple stones that come and go. He is unsure of the make up. Tries to stay hydrated and avoid caffeine/soda Alopecia 07/12/2021 Assessment & Plan (07/12/2021 6:00 PM CDT): Continue to monitor. Has already discussed with Derm Cigarette smoker 07/12/2021 Assessment & Plan (08/08/2021 11:20 AM CDT): Encouraged smoking cessation. Discussed 3 minutes. Reviewed options for assistance with cessation. Reviewed manager medical writing sequela associated with smoking. Pt declines assistance at this time but may contact the office at anytime for further help as they desire. He declines LDCT Assessment & Plan (07/12/2021 6:01 PM CDT): Encouraged smoking cessation. Discussed 3 minutes. Reviewed options for assistance with cessation. Reviewed fpc sequela associated with smoking. Pt declines assistance at this time but may contact the office at anytime for further help as they desire. 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 Esquivel underwent trans-sphenoidal decompression for a pituitary tumor [...] /closer to home annually. Nichole Patrick MD [facility] 02/23/2012 Assessment & Plan (08/08/2021 11:19 AM CDT): Chronic back pain. Offered imaging/further workup. He declines due to finanaces. Resolved Problems Problem Noted Date Diagnosed Date Resolved Date Medicare annual wellness visit, subsequent 07/12/2021 07/12/2021 BMI 22.0-22.9, adult 07/07/2021 021 Assessment & Plan (07/07/2021 10:14 AM CDT): Weight/BMI is in healthy range. Continue healthy lifestyle to maintain. Encounters Date Type Department Care Team Description 07/23/2025 Telephone [facility] Accountable Care Organization [address] [place] [id number] [address] Unsuccessful Phone Call 1 (Bernardoa josue ) from Last 3 Months Immunizations Immunization Administration Dates Next Due Influenza, Unspecified 08/14/2022 Tdap 05/24/2021 Surgical History Surgery Date Site/Laterality Comments CHOLECYSTECTOMY 11/14/2017 - 11/13/2018 BRAIN SURGERY 03/14/2019 - 04/13/2019 KIDNEY STONE SURGERY 11/14/2010 - 11/13/2011 KNEE CARTILAGE SURGERY Bilateral EYE SURGERY JOINT REPLACEMENT SPINE SURGERY cervical spine HEMORRHOID SURGERY CYST REMOVAL Medical History Medical History Date Comments Anxiety Arthritis COPD (chronic obstructive pulmonary disease) GERD (gastroesophageal reflux disease) Kidney stone Neuromuscular disorder Osteoporosis Vitamin D deficiency Depression Kidney stones Brain tumor 2017 benign (pituitar y) Family History Medical History Relation Name Comments Arthritis Father COPD Father Heart disease Father Hyperlipidemia Father Liver cancer Father Osteoporosis Father Stroke Father Diabetes Maternal Grandmother Arthritis Mother Breast cancer Mother COPD Mother Cancer Mother Diabetes Mother Kidney cancer Mother Kidney disease Mother Osteoporosis Mother Stroke Mother Colon cancer Sister due to cancer spreading Diabetes Sister Relation Name Status Comments Father Maternal Grandmother Mother Alive Sister Social History Tobacco Use Types Packs/Day Years Used Date Smoking Tobacco: Every Day Cigarettes 0.8 40 Smokeless Tobacco: Never Tobacco Cessation:Ready to Q uit: Not Asked; Counseling Given: Not Answered AUDIT-C Answer Date Recorded Q1: How often do you have a drink containing alc ohol? Never 07/07/2021 Average Number of Drinks Not on file 021 Q3: How often do you have si x or more drinks on one occasion? Never 07/07/2021 PHQ-2 Answer Date Recorded PHQ-2 Total Score (If total score is 3 or more points, staff should administer the PHQ-9) 0 07/07/2021 Sex and Gender Information Value Date Recorded Sex Assigned at Not on file Legal Sex Male 11:01 AM HEALTHCARE FACILITY ADMINISTRATOR Gender Identity Not on file Sexual Orientation Not on file Obstetrics History Last Filed Vital Signs Vital Sign Reading Time Taken Comments Blood Pressure 114/74 03/16/2023 2:43 PM CDT Pulse 62 03/16/2023 2:43 PM CDT Temperature 36.8 C (98.3 F) 08/07/2021 11:40 AM CDT Respiratory Rate 18 03/16/2023 2:43 PM CDT Oxygen Saturation 98% 03/16/2023 2:43 PM CDT Inhaled Oxygen Concentration - - Weight 74.1 kg (163 lb 4.8 oz) 03/16/2023 2:43 P M CDT Height 174 cm (5' 8.5) 03/16/2023 2:43 PM CDT Body Mass Index 24.47 03/16/2023 2:43 PM CDT Plan of Treatment Health Maintenance Due Date Last Done Comments Colon Cancer Screening-Colonoscopy 1965 Hepatitis C Screening 1966 Hepatitis B Screening 1984 Regular Well Visit/Exam 18-64 1984 Pneumococcal vaccine <65 (1 of 2 - PCV) 1985 Zoster Vaccine (1 of 2) 2016 Depression Screening 07/07/2022 07/07/2021 Prostate Cancer Screening-PSA 03/16/2025 03/16/2023, 07/09/2021 Influenza Vaccine (#1) 2025 08/14/2022 DTaP/Tdap/Td Vaccine (2 - Td or Tdap) 05/24/203109/2021 Procedures Procedure Name Priority Date/Time Associated Diagnosis Comments PSA SCREEN Routine 03/16/2023 3:56 PM CDT Prostate cancer screening from Last 3 Months or Most Recently Relevant to Health Maintenance Results * PSA screen (03/16/2023 3:56 PM CDT) PSA-Total 1.54 <=3.90 ng/mL [facility] Comment: Interpretive Data AGE SEX REFERENCE INTERVAL 0 minutes-150 years Female None 0 minutes-49 years Male None 50-59 years Male 0-3.90 60-69 years Male 0-5.40 70-79 years Male 0-6.20 80-150 years Male 0-6.20 The Kathrine PSA Total assay procedure was used. Results from different manufacturers or methods may not be comparable. Serial testing should be performed using the same method. Current interpretive data last revised 22. Blood 03/16/2023 3:56 PM CDT 03/16/2023 8:14 PM CDT us Kash Manzanares MD LAB BLOOD ORDERABLES Final Re sult [facility] [id number] Department [place] [address] from Last 3 Months or Most Recently Relevant to Health Maintenance Insurance [facility] MEDICARE HMO [employer] CHOICE MEDICARE PPO
--- OUTSIDE RECORDS SUMMARY | 2025-08-29 17:48 | XMS_ITS | Encounter Summary ---
Author Organization [facility] Address [address] [place], [place] [address] [address] Care Team Providers Care Videographer Name Role Phone Junie Garcia RN, Anne C DO Primary Care Provider [phone] Reason for Visit * Reason Onset Date Comments Consent 03/10/2020 Encounter Details Date Type Department Care Team (Late st Contact Info) Description 03/10/2020 Telephone [facility] [address] [place] [address] Nichole Patrick MD No information available Consent Social History Tobacco Use Types Packs/Day Years Used Date Smoking Tobacco: Every Day Cigarettes 1 40 Smokeless Tobacco: Never Comments:down to 4 or 5 cigs /day Alcohol Use Standard Drinks/Week Comments No 0 (1 standard drink = 0.6 oz pur e alcohol) Sex and Gender Information Value Date Recorded Sex Assigned at Not on file Legal Sex Male 9:03 PM CDT Gender Identity Not on file Sexual Orientation Not on file documented as of this encounter Functional Status * Is person deaf or have serious hearing difficulty? Answer Date of Assessment Author No 06/28/2019 9:53 PM Precious Whitaker RN * Is person blind or have serious difficulty seeing? Answer Date of Assessment Author No 06/28/2019 9:53 PM Precious Whitaker RN * Does person have serious difficulty walking/climbing stairs? Answer Date of Assessment Author No 06/28/2019 9:53 PM Precious Whitaker RN * Does person have difficulty dressing/bathing? Answer Date of Assessment Author No 06/28/2019 9:53 PM CDT Precious Real RN * Does person have difficulty doing errands alone? Answer Date of Assessment Author No 06/28/2019 9:53 PM CDT Precious Real RN documented as of this encounter Mental Status * Does person have difficulty concentrating/remembering/making decisions? Answer Entry Date Author No 06/28/2019 9:53 PM CDT Precious Real RN documented in this encounter Miscellaneous Notes * Telephone Encounter - Herminio Peter - 03/10/2020 8:35 AM CDT Pt agreed to telephone call . documented in this encounter Plan of Treatment Not on file documented as of this encounter Goals Goal Patient Goal Type Associated Problems Recent Progress Patient-Stated? Author Depression Lifestyle No Tianna Agustin, VEST PRESSER-VICE PRESIDENT OF SALES documented as of this encounter Visit Diagnoses Not on filedocumented in this encounter Care Teams Videographer Relationship Specialty Start Date End Date Debora Ding DO [address] [place] [address] PCP - General 12/04/18 Junie Garcia, RN 09/26/17 documented as of this encounter
--- OUTSIDE RECORDS SUMMARY | 2025-08-29 17:48 | XMS_ITS | Encounter Summary ---
Author Organization [facility] Address [address] [place] [id number] Care Team Providers Care Business Office Coordinator Name Role Phone Junie Garcia RN [facility] ErTianna Mobley FISCAL ACCOUNTANT-MVA OPERATOR Primary Care Provider Debora Ding DO Primary Care Provider [phone] Reason for Visit * Reason Onset Date Comments General 12/01/2018 paperwork Encounter Details Date Type Department Care Team (Late st Contact Info) Description 12/01/2018 Telephone [facility] Medicine [address] [id number] Tianna Agustin, FISCAL ACCOUNTANT-MVA OPERATOR [address] OF [facility] [place] [address] General (paperwork) Social History Tobacco Use Types Packs/Day Years Used Date Smoking Tobacco: Every Day Cigarettes 1 40 Smokeless Tobacco: Never Alcohol Use Standard Drinks/Week Comments No 0 (1 standard drink = 0.6 oz pur e alcohol) Sex and Gender Information Value Date Recorded Sex Assigned at Not on file Legal Sex Male 9:03 PM CDT Gender Identity Not on file Sexual Orientation Not on file documented as of this encounter Miscellaneous Notes * Telephone Encounter - Yelena Peres LPN - 12/01/2018 11:20 AM HUMAN RELATIONS TEACHER Routed to Medical Records. N RELATIONS TEACHER * Telephone Encounter - Helena Rodrigues - 12/01/2018 10:36 AM CST Pt calling in to inform of last provider to transfer records to [facility]. Pt informed [place] already signed release paperwork. Previous provider: MD Kash Sanchez [address] [place] [address] Office PH# [phone] PT CB# [phone] Routed to [facility] Nurse Communication for further review N RELATIONS TEACHER documented in this encounter Plan of Treatment Not on file documented as of this encounter Goals Goal Patient Goal Type Associated Problems Recent Progress Patient-Stated? Author Depression Lifestyle No Tianna Agustin APRN-CNP documented as of this encounter Visit Diagnoses Not on filedocumented in this encounter Care Teams Business Office Coordinator Relationship Specialty Start Date End Date Tianna Agustin APRN-CNP [address] [place] [address] PCP - General Nurse Practitioner 11/30/18 12/03/18 Debora Ding DO [address] [place] [address] PCP - General 12/04/18 Junie Garcia RN 09/26/17 documented as of this encounter
[2025-08-29 18:07] LABS: Add Urine Microscopic? YES; Appearance Urine Cloudy (Clear); Glucose Urine UA Negative (Negative); Leukocyte Esterase Ur Trace LEU/UL (Negative); Nitrate Urine Negative (Negative); Specific Grav Ur 1.025 (1.001-1.035)
== END 2025-08-29 19:55 | disposition home or self-care (01) ==
PROVIDERS: Physician Assistant; Emergency Provider Physician Assistant; PCP Family Medicine
DX: N13.2 Hydronephrosis with renal and ureteral calculous obstruction (principal); K21.9 Gastro-esophageal reflux disease without esophagitis; F17.210 Nicotine dependence, cigarettes, uncomplicated; Z87.442 Personal history of urinary calculi; Z86.73 Personal history of transient ischemic attack (TIA), and cerebral infarction without residual deficits
CPT/HCPCS: 36415; 74176; 80053; 81001; 83690; 85025; 96361; 96374; 96375; 99284; J1200; J2270; J2405; J2765; J7030

== ENCOUNTER 2025-09-05 15:26 | Observation (INO) | payer MEDICARE, SELFPAY ==
--- NOTE | ~2025-09-05 | CT_ITS ---
CT abdomen pelvis wo con INDICATION:r/o kidney stone- Left flank/left abdomen pain . COMPARISON: None. TECHNIQUE: Axial 2.5 mm images of the abdomen were obtained without IV or oral contrast. Diagnostic sensitivity is limited due to lack of IV contrast. FINDINGS: The lung bases are clear. The liver parenchyma is unremarkable. No intrahepatic mass or ductal dilatation is evident. The gallbladder is unremarkable. The pancreas and spleen are normal in appearance. The adrenal glands are symmetric in size. The kidneys are unremarkable. No intrarenal stones are noted. Mild left hydronephrosis secondary to a 7 mm stone in the mid left ureter. Evaluation of the stomach and bowel loops are limited due to lack of oral contrast. The bladder and rectum are normal. No free intraperitoneal fluid or air is evident. There is no significant retroperitoneal lymphadenopathy. The aorta, visceral vessels and renal arteries demonstrate normal caliber. Degenerative changes at L5-S1 with disc bulging and uncovertebral hypertrophy. IMPRESSION: Mild left hydronephrosis secondary to 7 mm stone in the mid left ureter All CT scans at this facility are performed using low dose modulation techniques as appropriate to perform exam including the following: automated exposure control; use of iterative reconstruction technique; adjustment of the mA and/or kV according to patient size (this includes techniques or standardized protocols for targeted exams where dose is matched to indication/reason for exam). Reviewed, dictated and finalized at location S. IMPRESSION: Mild left hydronephrosis secondary to 7 mm stone in the mid left ureter All CT scans at this facility are performed using low dose modulation techniqu es as appropriate to perform exam including the following: automated exposure c ontrol; use of iterative reconstruction technique; adjustment of the mA and/or kV according to patient size (this includes techniques or standardized protocol s for targeted exams where dose is matched to indication/reason for exam).
--- NOTE | ~2025-09-05 | XR_ITS ---
XR abdomen/kub 1V 09/06/2025 07:30 INDICATION: Left ureteral stone TECHNIQUE: KUB COMPARISON: None FINDINGS: Bowel gas pattern is normal. There is no evidence of free air, mass, organomegaly, ascites or obstruction. No abnormal calculi are seen. The bones appear intact. There are cholecystectomy clips. There are prostate calcifications. There are surgical changes of the rectum. IMPRESSION: 1: No acute abdominal abnormality identified. Reviewed, dictated and finalized at location O.
[2025-09-05 15:29] VITALS: BP 138/86; PULSE 55; RESP 16; TEMP 36.9; O2SAT 99
--- NOTE | 2025-09-05 15:36 | ED_ITS ---
HPI - Abdominal Pain General Chief Complaint: Abdominal Pain <Yoan Bass APRN - Last Filed: 09/05/25 18:21> Stated Complaint: kidney stone <Yoan Bass APRN - Last Filed: 09/05/25 18:21> Time Seen by Provider: 09/05/25 15:30 <Yoan Bass APRN - Last Filed: 09/05/25 18:21> Source: patient <Yoan Bass APRN - Last Filed: 09/05/25 18:21> Mode of arrival: ambulatory <Yoan Bass APRN - Last Filed: 09/05/25 18:21> Limitations: no limitations <Yoan Bass APRN - Last Filed: 09/05/25 18:21> History of Present Illness HPI narrative: Osmel is a 60-year-old male patient presenting to the ER today with complaints of left-sided flank pain/left lower abdominal pain. History of kidney stones. Passed kidney stone last week. States he started having symptoms after he coughed so hard he felt the stone start moving. Rates pain currently a 9/10. Denies any fever or chills. No difficulty with urination. Last BM was this morning and normal. <Yoan Bass APRN - Last Filed: 09/05/25 18:21> Related Data Home Medications: Home Medications ?Medication ?Instructions ?Recorded ?Confirmed ?Last Taken ?Type acetaminophen 500 mg tablet 1,000 mg PO Q4-6H PRN pain 09/05/25 09/05/25 Unknown History ibuprofen 200 mg capsule 400 mg PO Q6H PRN pain 09/0509/05/25 Unknown History <Yoan Bass APRN - Last Filed: 09/05/25 18:21> Allergies/Adverse Reactions: Allergies Allergy/AdvReac Type Severity Reaction Status Date / Time tramadol Allergy Severe Gastrointestinal Verified 09/05/25 19:49 Upset NSAIDS (Non-Steroidal AdvReac Mild STOMACH Verified 09/05/25 19:49 Anti-Inflamma UPSET <Yoan Bass APRN - Last Filed: 09/05/25 18:21> Review of Systems 2 Review of Systems: Pertinent positives per HPI. Patient denies any fever, chills, rash, headache, visual changes, dizziness, cough, runny nose, sore throat, shortness of breath, chest pain, palpitations, diarrhea, constipation, or any urinary issues. <Yoan Bass APRN - Last Filed: 09/05/25 18:21> COUNT INCLUDES THE [facility] Past Medical History Medical History: Medical History Alopecia universalis Kidney stones Spinal stenosis Duodenitis GERD (gastroesophageal reflux disease) H/O: CVA (cerebrovascular accident) 2/2 pituitary tumor Patient denies significant medical history <Yoan Bass APRN - Last Filed: 09/05/25 18:21> Surgical History Surgical History: Surgical History H/O brain surgery 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 History of left heart catheterization <Yoan Bass APRN - Last Filed: 09/05/25 18:21> Family History Family History: Family History (Updated 09/05/25 @ 19:41 by Angela Cerna RN) Mother Family history of diabetes mellitus in first degree relative Ovarian cancer Breast cancer <Yoan Bass APRN - Last Filed: 09/05/25 18:21> Social History Social History: Social History Smoking packs per day: 0.5 Smoking cigarettes per day: 10.0 Years smoked: 40 Smoking pack-years: 20.00 Smoking status: Current every day smoker Tobacco type: cigarettes Alcohol intake: unknown Substance use: current Substance use type: marijuana Other substance usage details: MEDICAL CARD Lack of Transportation: No Lack of Food: Sometimes True Current Housing: I Have Housing Concerned About Future Housing: No Difficulty Paying Gas/Electric Bills: No Difficulty Paying for Meds: No Currently Unemployed: No Education: High School Diploma/GED Difficulty w/ Childcare or Family Care: No Living arrangements: with family Spiritual care concerns: No <CALOS Ball Last Filed: 09/05/25 18:21> Comments At the time of my signature, I reviewed and agree with the nursing past medical, surgical, social, and family history. There is no relevant family history pertinent to the patient complaint. <Yoan Bass APRN - Last Filed: 09/05/25 18:21> Exam 2 Narrative: General: Well-developed, well nourished, in no apparent distress. Head: Normocephalic, atraumatic. Cardio: Regular rate and rhythm, s1 and s2 normal, no murmur appreciated. Resp: Clear to auscultation bilaterally, no rhonchi, rales, wheezing or rubs. Abdomen: Soft, pliable, bowel sounds present in all quadrants, left lower abdomen tender to palpation, no organomegly, left CVAT tenderness. <Yoan Bass APRN - Last Filed: 09/05/25 18:21> Course Course Emergency Course: Portions of this record may have been created with voice recognition software. <Yoan Bass APRN - Last Filed: 09/05/25 18:21> SCOOP MACHINE OPERATOR/PA Physician Supervision i did review the chart and was actively involved in management . <Iain Piper MD - Last Filed: 09/05/25 21:04> Vital Signs Vital signs: Vital Signs Temperature 36.9 C 09/05/25 15:29 Pulse Rate 55 L 09/05/25 15:29 Respiratory Rate 16 09/05/25 15:29 Blood Pressure 138/86 09/05/25 15:29 Pulse Oximetry 99 09/05/25 15:29 Oxygen Delivery Room Air 09/05/25 15:29 Temperature 36.4 C 09/05/25 19:42 Pulse Rate 71 09/05/25 19:42 Respiratory Rate 16 09/05/25 19:42 Blood Pressure 116/70 09/05/25 19:42 Pulse Oximetry 98 09/05/25 19:42 Oxygen Delivery Room Air 09/05/25 15:29 Vital signs reviewed <Yoan Bass APRN - Last Filed: 09/05/25 18:21> Vital Signs Temperature 36.9 C 09/05/25 15:29 Pulse Rate 55 L 09/05/25 15:29 Respiratory Rate 16 09/05/25 15:29 Blood Pressure 138/86 09/05/25 15:29 Pulse Oximetry 99 09/05/25 15:29 Oxygen Delivery Room Air 09/05/25 15:29 Temperature 36.4 C 09/05/25 19:42 Pulse Rate 71 09/05/25 19:42 Respiratory Rate 16 09/05/25 19:42 Blood Pressure 116/70 09/05/25 19:42 Pulse Oximetry 98 09/05/25 19:42 Oxygen Delivery Room Air 09/05/25 15:29 <Iain Piper MD - Last Filed: 09/05/25 21:04> MDM - Abdominal Pain MDM Narrative Medical decision making narrative: At the time of visit patient is resting comfortably on the exam table. Patient appears to be nontoxic. Complaints of left-sided flank pain/left lower abdominal pain. History of kidney stones. Passed kidney stone last week. States he started having symptoms after he coughed so hard he felt the stone start moving. Rates pain currently a 9/10. Denies any fever or chills. No difficulty with urination. Last BM was this morning and normal. On exam patient has tenderness to the left lower quadrant and positive left CVAT tenderness. Bowel sounds are present in all 4 quadrant, no organomegaly. Labs: CBC shows WBC of 7.2, H&H of 14.8/46.2, platelet count of 238, chemistry shows sodium levels 137, potassium 4.1, chloride 107, carbon dioxide 21, BUN is 19, creatinine is 1.26 GFR is 59, glucose 100 AST 29, ALT 19, alk-phos 56, lipase 82. Urinalysis yellow and clear with 1+ ketones and 3+ blood with 21-52 red blood cells, 0-5 white blood cells with no bacteria seen. Diagnostics: CT abdomen pelvis without contrast shows mild left hydronephrosis secondary to 7 mm stone in the mid left ureter Medications: 2 L of normal saline IV bolus, Morphine 4 mg IV x2 and Zofran 4 mg IV x2 given, dilaudid 0.5mg IV x1 Plan: Patient has 7 mm ureteral stone with mild left hydronephrosis-no sign of infection. Patient's rating pain 8 to 9/10 currently. Is getting 2nd dose of morphine and Zofran. Discussed patient's case with Dr. Mane-recommend admission for pain control and Urology evaluation. Contacted Dr. Morrow and agrees to consult on patient in the morning. Keep patient NPO at midnight in case there is need for lithotripsy-no NSAIDs. Last NSAIDs was noon on September 04, 2025. Patient agrees to admission. Contacted Ambrose SCOOP MACHINE OPERATOR- hospitalist and she accepts patient for admission to [facility]- patient full code. <Yoan Bass APRN - Last Filed: 09/05/25 18:21> Differential Diagnosis Differential diagnosis: Likely abdominal pain, constipation, diverticulitis, small bowel obstruction and other (Ureteral stone, pyelonephritis, UTI) <Yoan Bass APRN - Last Filed: 09/05/25 18:21> Lab Data Result diagrams: 09/05/25 15:38 09/05/25 15:38 <Yoan Bass APRN - Last Filed: 09/05/25 18:21> Labs: Lab Results 09/05/25 09/05/25 Range/Units 15:38 16:33 WBC 7.2 (4.5-10.0) K/mm3 RBC 5.33 (4.6-6.20) M/mm3 Hgb 14.8 (14.0-18.0) g/dL Hct 46.2 (42.0-52.0) % MCV 86.7 (80-100) fl MCH 27.8 (26-34) pg MCHC 32.0 (32-36) g/dl RDW 13.1 (11.5-14.5) % Plt Count 238 (150-375) k/mm3 MPV 9.3 (7.4-10.4) fl Immature Gran % (Auto) 0.4 (0-0.5) % Neut % (Auto) 55.4 (45.5-73.1) % Lymph % (Auto) 29.0 (18.3-44.2) % [place] % (Auto) 11.7 H (2.6-8.5) % Eos % (Auto) 2.7 (0-4.4) % Baso % (Auto) 0.8 (0.2-1.2) % Lymph # (Auto) 2.07 (0.9-3.2) K/mm3 [place] # (Auto) 0.8 H (0.1-0.6) K/mm3 Eos # (Auto) 0.2 (0-0.3) K/mm3 Baso # (Auto) 0.1 (0.0-0.1) K/mm3 Abs Immat Gran (auto) 0.03 (0.00-0.031) K/mm3 Absolute Neuts (auto) 4.0 (1.3-6.7) K/mm3 Absolute Nucleated RBC 0.000 (0.0-0.012) K/mm3 Nucleated RBC % 0.0 (0.0-0.2) % Sodium 137 (137-145) mmol/L Potassium 4.1 (3.4-5.0) mmol/L Chloride 107 (98-107) mmol/L Carbon Dioxide 21 L (22-30) mmol/L Anion Gap 9 (4-12) mmol/L BUN 19 (9-20) mg/dL Creatinine 1.26 (0.7-1.3) mg/dL Estim Creat Clear Calc 56 ml/min Estimated GFR 59 (59 - ) Glucose 100 (65-110) mg/dL Calcium 9.0 (8.4-10.2) mg/dL Total Bilirubin 0.7 (0.2-1.3) mg/dL AST 29 (17-59) U/L ALT 19 (6-50) U/L Alkaline Phosphatase 56 (38-126) U/L Total Protein 8.1 (6.3-8.2) g/dL Albumin 4.6 (3.5-5.1) g/dL Lipase 82 (23-300) U/L Urine Color Yellow (Yellow) Urine Appearance Clear (Clear) Urine pH 5.0 (5.0-9.0) Ur Specific [place] 1.023 (1.001-1.035) Urine Protein Trace (Negative) mg/dL Urine Glucose (UA) Negative (Negative) mg/dL Urine Ketones 1+ H (Negative) mg/dL Ur Blood (Man) 3+ H (Negative) Urine Nitrate Negative (Negative) Urine Bilirubin Negative (Negative) Urine Urobilinogen 0.2 (<2.0) mg/dL Leukocyte Esterase Rfl Negative (Negative) RAMESH/UL Urine RBC 21-50 H (0-2) /hpf Urine WBC 0-5 (0-3) /hpf Ur Squamous Epith Cells None seen (Few) /hpf Urine Bacteria None seen /hpf Urine Casts 0-2 <Yoan Bass, BUTTER PRODUCTION SUPERVISOR - Last Filed: 09/05/25 18:21> Lab Results 09/05/25 09/05/25 Range/Units 15:38 16:33 WBC 7.2 (4.5-10.0) K/mm3 RBC 5.33 (4.6-6.20) M/mm3 Hgb 14.8 (14.0-18.0) g/dL Hct 46.2 (42.0-52.0) % MCV 86.7 (80-100) fl MCH 27.8 (26-34) pg MCHC 32.0 (32-36) g/dl RDW 13.1 (11.5-14.5) % Plt Count 238 (150-375) k/mm3 MPV 9.3 (7.4-10.4) fl Immature Gran % (Auto) 0.4 (0-0.5) % Neut % (Auto) 55.4 (45.5-73.1) % Lymph % (Auto) 29.0 (18.3-44.2) % [place] % (Auto) 11.7 H (2.6-8.5) % Eos % (Auto) 2.7 (0-4.4) % Baso % (Auto) 0.8 (0.2-1.2) % Lymph # (Auto) 2.07 (0.9-3.2) K/mm3 [place] # (Auto) 0.8 H (0.1-0.6) K/mm3 Eos # (Auto) 0.2 (0-0.3) K/mm3 Baso # (Auto) 0.1 (0.0-0.1) K/mm3 Abs Immat Gran (auto) 0.03 (0.00-0.031) K/mm3 Absolute Neuts (auto) 4.0 (1.3-6.7) K/mm3 Absolute Nucleated RBC 0.000 (0.0-0.012) K/mm3 Nucleated RBC % 0.0 (0.0-0.2) % Sodium 137 (137-145) mmol/L Potassium 4.1 (3.4-5.0) mmol/L Chloride 107 (98-107) mmol/L Carbon Dioxide 21 L (22-30) mmol/L Anion Gap 9 (4-12) mmol/L BUN 19 (9-20) mg/dL Creatinine 1.26 (0.7-1.3) mg/dL Estim Creat Clear Calc 56 ml/min Estimated GFR 59 (59 - ) Glucose 100 (65-110) mg/dL Calcium 9.0 (8.4-10.2) mg/dL Total Bilirubin 0.7 (0.2-1.3) mg/dL AST 29 (17-59) U/L ALT 19 (6-50) U/L Alkaline Phosphatase 56 (38-126) U/L Total Protein 8.1 (6.3-8.2) g/dL Albumin 4.6 (3.5-5.1) g/dL Lipase 82 (23-300) U/L Urine Color Yellow (Yellow) Urine Appearance Clear (Clear) Urine pH 5.0 (5.0-9.0) Ur Specific [place] 1.023 (1.001-1.035) Urine Protein Trace (Negative) mg/dL Urine Glucose (UA) Negative (Negative) mg/dL Urine Ketones 1+ H (Negative) mg/dL Ur Blood (Man) 3+ H (Negative) Urine Nitrate Negative (Negative) Urine Bilirubin Negative (Negative) Urine Urobilinogen 0.2 (<2.0) mg/dL Leukocyte Esterase Rfl Negative (Negative) RAMESH/UL Urine RBC 21-50 H (0-2) /hpf Urine WBC 0-5 (0-3) /hpf Ur Squamous Epith Cells None seen (Few) /hpf Urine Bacteria None seen /hpf Urine Casts 0-2 <Iain Piper MD - Last Filed: 09/05/25 21:04> Imaging Data Radiologist's impression: ITS Impressions Abdomen/Pelvis CT 09/05/25 15:57 IMPRESSION: Mild left hydronephrosis secondary to 7 mm stone in the mid left ureter All CT scans at this facility are performed using low dose modulation techniques as appropriate to perform exam including the following: automated exposure control; use of iterative reconstruction technique; adjustment of the mA and/or kV according to patient size (this includes techniques or standardized protocols for targeted exams where dose is matched to indication/reason for exam). <Yoan Bass APRN - Last Filed: 09/05/25 18:21> ITS Impressions Abdomen/Pelvis CT 09/05/25 15:57 IMPRESSION: Mild left hydronephrosis secondary to 7 mm stone in the mid left ureter All CT scans at this facility are performed using low dose modulation techniques as appropriate to perform exam including the following: automated exposure control; use of iterative reconstruction technique; adjustment of the mA and/or kV according to patient size (this includes techniques or standardized protocols for targeted exams where dose is matched to indication/reason for exam). <Iain Piper MD - Last Filed: 09/05/25 21:04> Discharge Plan Discharge Clinical Impression: Hydronephrosis with ureteral calculus, Left ureteral stone <Yoan Bass APRN - Last Filed: 09/05/25 18:21> Patient Disposition: Still a Patient <Yoan Bass APRN - Last Filed: 09/05/25 18:21> Condition: Stable <Yoan Bass APRN - Last Filed: 09/05/25 18:21> Time of Disposition: 17:30 <Yoan Bass APRN - Last Filed: 09/05/25 18:21> 17:30 <Iain Piper MD - Last Filed: 09/05/25 21:04> Quality NIHSS Nursing Documentation ED NIHSS nursing documentation: reviewed/agree <Yoan Bass APRN - Last Filed: 09/05/25 18:21>
--- NOTE | 2025-09-05 15:41 | PC.NURSE ---
Pt headed to CT. Pt aware that he needs to provide a urine sample. Pt unable to provide sample at this time.
[2025-09-05 15:46] LABS: Hematocrit 46.2 % (42.0-52.0); Hemoglobin 14.8 g/dL (14.0-18.0); Immature Granulocyte Percent A 0.4 % (0-0.5); Lymphocytes Absolute Auto 2.07 K/mm3 (0.9-3.2); Mean Corpuscular HGB Conc 32.0 g/dl (32-36); Mean Corpuscular Hemoglobin 27.8 pg (26-34); Mean Corpuscular Volume 86.7 fl (80-100); Nucleated Red Blood Cells Absolute Auto 0.000 K/mm3 (0.0-0.012); Nucleated Red Blood Cells Perc 0.0 % (0.0-0.2); Platelet Count Result 238 k/mm3 (150-375); Red Blood Count 5.33 M/mm3 (4.6-6.20); White Blood Count 7.2 K/mm3 (4.5-10.0)
[2025-09-05 15:57] LABS: Alanine Aminotransferase 19 U/L (6-50); Albumin Level 4.6 g/dL (3.5-5.1); Alkaline Phosphatase 56 U/L (38-126); Anion Gap 9 mmol/L (4-12); Aspartate Amino Transferase 29 U/L (17-59); Bilirubin,Total 0.7 mg/dL (0.2-1.3); Blood Urea Nitrogen 19 mg/dL (9-20); Calcium 9.0 mg/dL (8.4-10.2); Carbon Dioxide 21 mmol/L (22-30); Chloride 107 mmol/L (98-107); Estimated CRCL calculation 56 ml/min; Estimated Glomerular Filt Rate 59; Glucose 100 mg/dL (65-110); Lipase 82 U/L (23-300); Potassium 4.1 mmol/L (3.4-5.0); Sodium 137 mmol/L (137-145); Total Protein 8.1 g/dL (6.3-8.2)
--- OUTSIDE RECORDS SUMMARY | 2025-09-05 16:27 | XMS_ITS | Clinical Summary ---
Author Organization [facility] [address] [facility] Address [address] [place] [address] Care Team Providers Care Diffuser Operator Name Role Phone Unavailable Primary Care [...] 8mm 08/11/20 21 Overview (08/11/2021): CT at [place] on 05/07/2021 IMPRESSION: 1. Duodenitis 2. 6 mm pulmonary nodule, probably benign. Noncontrast LDCT recommended in 6 months. Assessment & Plan (08/11/2021 11:52 AM CDT): CT at [place] on 05/07/2021 IMPRESSION: 1. Duodenitis 2. 6 [...] I also provided him with information regardi [facility] financial assistance for him to [...] (07/12/2021): Surgical resection 11/2019 Dr. Ceja at [facility] Assessment & Plan (08/08/2021 11:19 AM CDT): Stressed importance of followup with Dr. Ceja. He voices understanding but is limited by finances. Assessment & Plan (07/12/2021 5:56 PM CDT): Surgical resection 11/2019 Dr. Ceja at [facility] Encouraged to followup as instructed by Dr. [...] Reviewed options for assistance with cessation. Reviewed intermission coordinator sequela associated with smoking. Pt declines assistance at this time but may contact the office at anytime for further help as they desire. He declines LDCT Assessment & Plan (07/12/2021 6:01 PM CDT): Encouraged smoking cessation. Discussed 3 minutes. Reviewed options for assistance with cessation. Reviewed fdc sequela associated with smoking. Pt declines assistance [...] /closer to home annually. Nichole Patrick MD [facility] 02/23/2012 Assessment & Plan (08/08/2021 [...] Type Department Care Team Description 07/23/2025 Telephone [facility] Accountable Care Organization [address] [place] [id number] [address] [place] Unsuccessful Phone Call 1 [...] on file Legal Sex Male 11:01 AM [facility] Gender Identity Not on file Sexual Orientation [...] BLOOD ORDERABLES Final Re sult [facility]ENN[facility] [address] Department [place] [address] from Last 3 Months or Most Recently Relevant to Health Maintenance Insurance [facility] MEDIC[employer] HMO [employer] CHOICE MEDICARE PPO
--- OUTSIDE RECORDS SUMMARY | 2025-09-05 16:27 | XMS_ITS | Clinical Summary ---
Author Organization [facility] Address [address] [place] [address] Care Team Providers Care Announcer Name Role Phone Junie Garcia RN, Anne C DO Primary Care Provider [phone] Source Comments [facility],non-owned Affiliates and Associated Physician Practices is amultiple site organization consisting of ambulatory clinics and hospital sitesin [place], [place], [place] and [place]. This disclosure is being madepursuant to the Care Everywhere program and may not contain all information available regarding this patient. Last updated 18.[facility] Allergies Active Allergy Reactions Criticality Noted Date [...] Comments Blood Pressure 111/70 11/21/2019 12:50 PM [facility] Pulse 60 11/21/2019 12:50 PM [facility] Temperature 36.3 C (97.3 F) 11/21/2019 12:50 PM [facility] Respiratory Rate 20 11/21/2019 12:50 PM [facility] Oxygen Saturation 99% 11/21/2019 12:50 PM [facility] Inhaled Oxygen Concentration - - Weight 75.8 kg (167 lb) 11/21/2019 12:50 PM [facility] Height 177.8 cm (5' 10) 11/21/2019 12:50 PM [facility] Body Mass Index 23.96 11/21/2019 12:50 PM [facility] Plan of Treatment Health Maintenance Due Date [...] Patient-Stated? Author Depression Lifestyle No Tianna Agustin, MS SQL DBA-SPECIAL EDUCATION COORDINATOR Medical Devices Implanted Type Area Certified Diabetes Educator Device Identifier Shelf Expiration Date Model / Serial / Lot Graft Tissue Drgn + Bvn Clgn Mtrx 2x2in Implanted:Qty: 1 on 06/28/2019 by Hugh Ceja MD at [facility] [employer] 02/11/2022 [id number] / / [id number] Procedures Procedure Name Priority Date/Time Associated Diagnosis Comments LIPID PROFILE Routine 10/26/2018 11:14 AM [facility] H/O stroke without residual deficits from Last 3 Months or Most Recently Relevant to Health Maintenance Results * LIPID PROFILE (10/26/2018 11:14 AM [facility]) Cholesterol Total 162 <200 mg/dL 10/26/2018 12:12 PM [facility] HDL 49 >40 mg/dL 10/26/2018 12:12 PM [facility] Comment: ATP III Classification of HDL Cholesterol: <40 mg/dL: Considered a major risk factor. >60 mg/dL: Considered a negative risk factor. LDL Calculated 98 <100 mg/dL 10/26/2018 12:12 PM [facility] Comment: ATP III Classification of LDL Cholesterol: <100 mg/dL: Optimal 100 - 129 mg/dL: Near Optimal/Above Optimal 130 - 159 mg/dL: Borderline High 160 - 189 mg/dL: High >190 mg/dL: Very High Triglycerides 73 <150 mg/dL 10/26/2018 12:12 PM [facility] Comment: ATP III Classification of Triglycerides: <150 mg/dL: Normal 150 - 199 mg/dL: Borderline High 200 - 400 mg/dL: High >500 mg/dL: Very High Blood BLOOD SPECIMEN / Unknown Lab Venipuncture / Unknown 10/26/2018 11:14 AM [facility] 10/26/2018 11:18 AM [facility] Christy Rivera MS SQL DBA-SPECIAL EDUCATION COORDINATOR LAB - CHEMISTRY ORDERABL ES Final Result [address] [phone] from Last 3 Months or Most Recently Relevant to Health Maintenance Insurance [place] [address] MEDICARE MEDICARE * Guarantor: OSMEL DALY Account Type Relation to Patient Date of Phone Billing Address Personal/Family 1965 [place] Advance Directives * Full Code (Latest Code Status on File) Date Activated Date Inactivated Comments 06/28/2019 7:57 PM 07/02/2019 4:56 PM * Full Code Date Activated Date Inactivated Comments 09/26/2017 12:45 PM 09/27/2017 1:07 PM Care Teams Announcer Relationship Specialty Start Date End Date Debora Ding DO [address] [place] [address] PCP - General 12/04/18 Junie Garcia, RN 09/26/17
--- OUTSIDE RECORDS SUMMARY | 2025-09-05 16:27 | XMS_ITS | Encounter Summary ---
Author Organization [facility] Address [address] [place] [address] Care Team Providers Care Billing Control Clerk Name Role Phone Junie Garcia RN [facility] REORDERING CLERK-CHAIRPERSON ANESTHESIOLOGY Primary Care Provider Debora Ding DO Primary Care Provider [phone] Reason for Visit * Reason Onset Date Comments General 12/01/2018 paperwork Encounter Details Date Type Department Care Team (Late st Contact Info) Description 12/01/2018 Telephone [facility] Internal Medicine [address] [id number] Tianna Agustin, REORDERING CLERK-CHAIRPERSON ANESTHESIOLOGY [address] [facility] [place] [address] General (paperwork) Social History Tobacco Use Types [...] Yelena Peres LPN - 12/01/2018 11:20 AM COMPOUNDING TECHNICIAN Routed to Medical Records. OUNDING TECHNICIAN * Telephone Encounter - Helena Rodrigues - 12/01/2018 10:36 AM CST Pt calling in to inform of last provider to transfer records to [facility]. Pt informed [place] already signed release paperwork. Previous provider: MD Kash Sanchez [address] [place] [address] Office PH# PT CB# [phone] Routed to [facility] Nurse Communication for further review OUNDING TECHNICIAN documented in this encounter Plan of Treatment Not on file documented as of this encounter Goals Goal Patient Goal Type Associated Problems Recent Progress Patient-Stated? Author Depression Lifestyle No Tianna Agustin APRN-CNP documented as of this encounter Visit Diagnoses Not on filedocumented in this encounter Care Teams Billing Control Clerk Relationship Specialty Start Date End Date Tianna Agustin APRN-CNP [address] [place] [address] PCP - General Nurse Practitioner 11/30/18 12/03/18 Debora Ding DO [address] [place] [address] PCP - General 12/04/18 Junie Garcia RN 09/26/17 documented as of this encounter
--- OUTSIDE RECORDS SUMMARY | 2025-09-05 16:27 | XMS_ITS | Encounter Summary ---
Author Organization [facility] Address [address] [place], [place] [address] [address] Care Team Providers Care Melter Supervisor Oxygen Furnace Name Role Phone Junie Garcia RN, Anne C DO Primary Care Provider [phone] Reason for Visit * Reason Onset Date Comments Consent 03/10/2020 Encounter Details Date Type Department Care Team (Late st Contact Info) Description 03/10/2020 Telephone [facility] [address] [place] [address] Nichole Patrick MD No information available Consent [...] Patient-Stated? Author Depression Lifestyle No Tianna Agustin, INSTRUCTOR CREELER-TRUCK RAILROAD AND BUS MOTOR MECHANIC documented as of this encounter Visit Diagnoses Not on filedocumented in this encounter Care Teams Melter Supervisor Oxygen Furnace Relationship Specialty Start Date End Date Debora Ding DO [address] [place] [address] PCP - General 12/04/18 Junie Garcia, RN 09/26/17 documented as of this encounter
[2025-09-05] MEDS: MORPHINE SULFATE (*CRX) 4 MG/ML INJ IV PUSH ×2 (16:28→17:31)
[2025-09-05] MEDS: ONDANSETRON INJ 4 MG/2 ML VIAL IV PUSH ×3 (16:28→20:31)
[2025-09-05] MEDS: SODIUM CHLORIDE 0.9% IV 1,000 ML 999 ML IV CONT ×2 (16:28→17:31)
[2025-09-05 16:47] LABS: Add Urine Microscopic? YES; Appearance Urine Clear (Clear); Glucose Urine UA Negative (Negative); Leukocyte Esterase Ur Negative LEU/UL (Negative); Nitrate Urine Negative (Negative); Non Pathogenic Casts 0-2; Specific Grav Ur 1.023 (1.001-1.035)
--- NOTE | 2025-09-05 17:42 | P.HP_ITS ---
H&P: HPI History of Present Illness Date/Time: 09/05/25 17:42 Chief Complaint: Left-sided flank pain Narrative: A 60-year-old male with past medical history of multiple kidney stones, spinal stenosis, duodenitis, GERD, benign pituitary tumor, smoker presents to the ED on 09/05/2025 with complaints of left-sided flank pain starting today after a coughing fit. Described as a sharp stabbing pain rated as high as a 9/10. Denies fevers or chills. No changes in bowel or bladder habits. The patient had the same symptoms on 08/29 and was able to pass the stone on his own. He states he has been having issues with kidney stones for about 15 years. He did have 1 episode of emesis today due to the pain. Hemodynamically stable. Afebrile, 99% on room air Lab work unremarkable. UA with no signs of infection but 3+ blood and 21-[address] revealed mild left hydronephrosis secondary to 7 mm stone in the mid left ureter Review of Systems Review of Systems: All systems reviewed & are unremarkable except as noted in HPI and below PMFSH Past Medical History Medical History Alopecia universalis Kidney stones Spinal stenosis Duodenitis GERD (gastroesophageal reflux disease) H/O: CVA (cerebrovascular accident) 2/2 pituitary tumor Patient denies significant medical history Surgical History Surgical History H/O brain surgery 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 History of left heart catheterization Family History Family History (Updated 09/05/25 @ 19:41 by Angela Cerna RN) Mother Family history of diabetes mellitus in first degree relative Ovarian cancer Breast cancer Social History Social History Smoking packs per day: 0.5 Smoking cigarettes per day: 10.0 Years smoked: 40 Smoking pack-years: 20.00 Smoking status: Current every day smoker Tobacco type: cigarettes Alcohol intake: unknown Substance use: current Substance use type: marijuana Other substance usage details: MEDICAL CARD Lack of Transportation: No Lack of Food: Sometimes True Current Housing: I Have Housing Concerned About Future Housing: No Difficulty Paying Gas/Electric Bills: No Difficulty Paying for Meds: No Currently Unemployed: No Education: High School Diploma/GED Difficulty w/ Childcare or Family Care: No Living arrangements: with family Spiritual care concerns: No Meds Home Medications and Allergies Home Medications ?Medication ?Instructions ?Recorded ?Confirmed ?Type pantoprazole 40 mg tablet,delayed 40 mg PO BID #40 tab s 05/07/21 09/05/25 Rx release (Protonix) tamsulosin 0.4 mg capsule (Flomax) 0.4 mg PO DAILY #7 caps 08/29/25 09/05/25 Rx acetaminophen 500 mg tablet 1,000 mg PO Q4-6H PRN pain 09/05/25 09/05/25 History ibuprofen 200 mg capsule 400 mg PO Q6H PRN pain 09/0509/05/25 History Allergies Allergy/AdvReac Type Severity Reaction Status Date / Time tramadol Allergy Severe Gastrointestinal Verified 09/05/25 19:49 Upset NSAIDS (Non-Steroidal AdvReac Mild STOMACH Verified 09/05/25 19:49 Anti-Inflamma UPSET Vital Signs Vital Signs - 24 hr 09/05/25 15:29 Temperature 98.4 F Pulse Rate 55 L Respiratory Rate 16 Blood Pressure 138/86 Pulse Oximetry 99 Oxygen Delivery Room Air Exam Narrative: GENERAL: non-toxic appearing, appears uncomfortable. HEAD: Normocephalic, atraumatic. EYES: PERRLA. Conjunctivae clear. NOSE: Normal no drainage. THROAT: Pharynx clear, no exudate. NECK: Trachea midline. No adenopathy, no masses. RESPIRATORY: Airway patent, respirations nonlabored. CTA. CARDIOVASCULAR: Regular rate and rhythm GASTROINTESTINAL: Abdomen is soft and tender to left lower quadrant.. No organomegaly. Bowel sounds normal in all quadrants. GENITOURINARY: Defer MUSCULOSKELETAL: Moves all extremities. No gross deformities. No calf tenderness. SKIN: Warm, dry, normal color. NEURO: A&O X4. Speech clear PSYCHIATRIC: Normal interaction H&P: Results Labs Labs: Short CBC 09/05/25 Range/Units 15:38 WBC 7.2 (4.5-10.0) K/mm3 Hgb 14.8 (14.0-18.0) g/dL Hct 46.2 (42.0-52.0) % Plt Count 238 (150-375) k/mm3 BMP 09/05/25 15:38 Sodium 137 Potassium 4.1 Chloride 107 Carbon Dioxide 21 L BUN 19 Creatinine 1.26 Glucose 100 Calcium 9.0 Liver Function 09/05/25 Range/Units 15:38 Total Bilirubin 0.7 (0.2-1.3) mg/dL AST 29 (17-59) U/L ALT 19 (6-50) U/L Alkaline Phosphatase 56 (38-126) U/L Albumin 4.6 (3.5-5.1) g/dL Urine 09/05/25 Range/Units 16:33 Urine Color Yellow (Yellow) Urine Appearance Clear (Clear) Urine pH 5.0 (5.0-9.0) Ur Specific [place] 1.023 (1.001-1.035) Urine Protein Trace (Negative) mg/dL Urine Glucose (UA) Negative (Negative) mg/dL Assessment and Plan Assessment and plan (1) Hydronephrosis with ureteral calculus: Code(s): N13.2 - Hydronephrosis with renal and ureteral calculous obstruction Status: Acute Assessment and Plan: Patient with sudden left flank pain starting today is rated at 9/10. 7 mm stone in the left mid ureter. Patient recently passed another stone on 08/29. -urology consult -NPO at midnight for possible lithotripsy -pain control with Dilaudid p.r.n. -Zofran p.r.n. Plan Diet: Regular-NPO at midnight GI prophylaxis: Pantoprazole DVT prophylaxis: SCDs lines/drains: PIV Fluids: 2 L NS bolus. Normal saline at 125 mL/hr. Code status: Full Quality VTE Prophylaxis VTE prophylaxis: mechanical ordered Hospitalist [facility] Advance Care Plan I have confirmed that the patient's Advanced Care Plan is present, code status is documented, or surrogate decision maker is listed in patient medical record.: Yes Medication Reconciliation I have utilized all available resources to obtain, update and review the patients current medications (includes all prescriptions, OTC, herbals, cannabis, and nutritional supplements).: Yes
--- NOTE | 2025-09-05 17:50 | PC.NURSE ---
Dinner ordered for pt. To be sent to the ER.
[2025-09-05] MEDS: HYDROmorphone HCL INJ (*CRX) 1 MG/ML SYR 0.5 MG IV PUSH (18:28)
[2025-09-05 18:31] VITALS: BP 123/72; PULSE 78; RESP 18; O2SAT 98
--- OUTSIDE RECORDS SUMMARY | 2025-09-05 18:53 | XMS_ITS | Clinical Summary ---
Author Organization [facility] [employer] Address [address] [facility] [place] [address] Care Team Providers Care Charrer Name Role Phone Junie Garcia RN, Anne C DO Primary Care Provider [phone] Source Comments [facility],non-owned Affiliates and Associated Physician Practices is amultiple site organization consisting of ambulatory clinics and hospital sitesin [place], [place], [place] and [place]. This disclosure is being madepursuant to the Care Everywhere program and may not contain all information available regarding this patient. Last updated 18.[facility] [employer] Allergies Active Allergy Reactions Criticality Noted Date [...] Comments Blood Pressure 111/70 11/21/2019 12:50 PM TOOL SETTER Pulse 60 11/21/2019 12:50 PM TOOL SETTER Temperature 36.3 C (97.3 F) 11/21/2019 12:50 PM TOOL SETTER Respiratory Rate 20 11/21/2019 12:50 PM TOOL SETTER Oxygen Saturation 99% 11/21/2019 12:50 PM TOOL SETTER Inhaled Oxygen Concentration - - Weight 75.8 kg (167 lb) 11/21/2019 12:50 PM TOOL SETTER Height 177.8 cm (5' 10) 11/21/2019 12:50 PM TOOL SETTER Body Mass Index 23.96 11/21/2019 12:50 PM TOOL SETTER Plan of Treatment Health Maintenance Due Date [...] Patient-Stated? Author Depression Lifestyle No Tianna Agustin, TERADATA SOLUTION ARCHITECT-LIVE TRUCK OPERATOR Medical Devices Implanted Type Area Blanket Washer Device Identifier Shelf Expiration Date Model / Serial / Lot Graft Tissue Drgn + Bvn Clgn Mtrx 2x2in Implanted:Qty: 1 on 06/28/2019 by Hugh Ceja MD at [facility] Neurosciences 02/11/2022 [id number] / / [id number] Procedures Procedure Name Priority Date/Time Associated Diagnosis Comments LIPID PROFILE Routine 10/26/2018 11:14 AM TOOL SETTER H/O stroke without residual deficits from Last 3 Months or Most Recently Relevant to Health Maintenance Results * LIPID PROFILE (10/26/2018 11:14 AM TOOL SETTER) Cholesterol Total 162 <200 mg/dL 10/26/2018 12:12 PM [facility] HDL 49 >40 mg/dL 10/26/2018 12:12 PM [facility] Comment: ATP III Classification of HDL Cholesterol: <40 mg/dL: Considered a major risk factor. >60 mg/dL: Considered a negative risk factor. LDL Calculated 98 <100 mg/dL 10/26/2018 12:12 PM [facility] Comment: ATP III Classification of LDL Cholesterol: <100 mg/dL: Optimal 100 - 129 mg/dL: Near Optimal/Above Optimal 130 - 159 mg/dL: Borderline High 160 - 189 mg/dL: High >190 mg/dL: Very High Triglycerides 73 <150 mg/dL 10/26/2018 12:12 PM [facility] Comment: ATP III Classification of Triglycerides: <150 mg/dL: Normal 150 - 199 mg/dL: Borderline High 200 - 400 mg/dL: High >500 mg/dL: Very High Blood BLOOD SPECIMEN / Unknown Lab Venipuncture / Unknown 10/26/2018 11:14 AM TOOL SETTER 10/26/2018 11:18 AM TOOL SETTER Christy Rivera TERADATA SOLUTION ARCHITECT-LIVE TRUCK OPERATOR LAB - CHEMISTRY ORDERABL ES Final Result [address] [phone] from Last 3 Months or Most Recently Relevant to Health Maintenance [place] [address] MEDICARE MEDICARE * Guarantor: OSMEL DALY Account Type Relation to Patient Date of Phone Billing Address Personal/Family 1965 [place] Advance Directives * Full Code (Latest Code Status on File) Date Activated Date Inactivated Comments 06/28/2019 7:57 PM 07/02/2019 4:56 PM * Full Code Date Activated Date Inactivated Comments 09/26/2017 12:45 PM 09/27/2017 1:07 PM Care Teams Charrer Relationship Specialty Start Date End Date Debora Ding DO [address] [place] [address] PCP - General 12/04/18 Junie Garcia, RN 09/26/17
--- OUTSIDE RECORDS SUMMARY | 2025-09-05 18:53 | XMS_ITS | Encounter Summary ---
Author Organization [facility] Address [address] [place], [place] [address] [address] Care Team Providers Care Certified Endoscopy Technician Name Role Phone Junie Garcia RN, Anne C DO Primary Care Provider [phone] Reason for Visit * Reason Onset Date Comments Consent 03/10/2020 Encounter Details Date Type Department Care Team (Late st Contact Info) Description 03/10/2020 Telephone [facility] [address] [place] [address] Nichole Patrick MD No information available Consent [...] Patient-Stated? Author Depression Lifestyle No Tianna Agustin, MEDICAL LAB SCIENTIST-HEALTHCARE INSURANCE SALES AGENT documented as of this encounter Visit Diagnoses Not on filedocumented in this encounter Care Teams Certified Endoscopy Technician Relationship Specialty Start Date End Date Debora Ding DO [address] [place] [address] PCP - General 12/04/18 Junie Garcia, RN 09/26/17 documented as of this encounter
--- OUTSIDE RECORDS SUMMARY | 2025-09-05 18:53 | XMS_ITS | Encounter Summary ---
Author Organization [facility] Address [address] [place] [address] Care Team Providers Care Staff Registered Nurse Name Role Phone Junie Garcia RN [facility] GUM ROLLING MACHINE OPERATOR-COMBINATION MACHINE TENDER Primary Care Provider Debora Ding DO Primary Care Provider [phone] Reason for Visit * Reason Onset Date Comments General 12/01/2018 paperwork Encounter Details Date Type Department Care Team (Late st Contact Info) Description 12/01/2018 Telephone [facility] [address] [id number] Tianna Agustin, GUM ROLLING MACHINE OPERATOR-COMBINATION MACHINE TENDER [address] [facility] [place] [address] General (paperwork) Social History Tobacco Use Types [...] Yelena Peres LPN - 12/01/2018 11:20 AM RADIAGRAPH OPERATOR Routed to Medical Records. AGRAPH OPERATOR * Telephone Encounter - Helena Rodrigues - 12/01/2018 10:36 AM CST Pt calling in to inform of last provider to transfer records to [facility]. Pt informed [place] already signed release paperwork. Previous provider: MD Kash aSnchez [address] [place] [address] Office PH# [phone] PT CB# [phone] Routed to [facility] Nurse Communication for further review AGRAPH OPERATOR documented in this encounter Plan of Treatment Not on file documented as of this encounter Goals Goal Patient Goal Type Associated Problems Recent Progress Patient-Stated? Author Depression Lifestyle No Tianna Agustin APRN-CNP documented as of this encounter Visit Diagnoses Not on filedocumented in this encounter Care Teams Staff Registered Nurse Relationship Specialty Start Date End Date Tianna Agustin APRN-CNP [address] [place] [address] PCP - General Nurse Practitioner 11/30/18 12/03/18 Debora Ding DO [address] [place] [address] PCP - General 12/04/18 Junie Garcia RN 09/26/17 documented as of this encounter
--- OUTSIDE RECORDS SUMMARY | 2025-09-05 18:53 | XMS_ITS | Clinical Summary ---
Author Organization [facility] [facility] Address [address] [place] [address] Care Team Providers Care Tube Depatcher Name Role Phone Unavailable Primary Care Provider [...] 8mm 08/11/20 21 Overview (08/11/2021): CT at [place] on 05/07/2021 IMPRESSION: 1. Duodenitis 2. 6 mm pulmonary nodule, probably benign. Noncontrast LDCT recommended in 6 months. Assessment & Plan (08/11/2021 11:52 AM CDT): CT at [place] on 05/07/2021 IMPRESSION: 1. Duodenitis 2. 6 [...] I also provided him with information regardi [facility] financial assistance for him to investigate also. [...] (07/12/2021): Surgical resection 11/2019 Dr. Ceja at [facility] Assessment & Plan (08/08/2021 11:19 AM CDT): Stressed importance of followup with Dr. Ceja. He voices understanding but is limited by finances. Assessment & Plan (07/12/2021 5:56 PM CDT): Surgical resection 11/2019 Dr. Ceja at [facility] Encouraged to followup as [...] Reviewed options for assistance with cessation. Reviewed watcher automat long goods sequela associated with smoking. Pt declines assistance at this time but may contact the office at anytime for further help as they desire. He declines LDCT Assessment & Plan (07/12/2021 6:01 PM CDT): Encouraged smoking cessation. Discussed 3 minutes. Reviewed options for assistance with cessation. Reviewed snf sequela associated with smoking. Pt declines assistance [...] /closer to home annually. Nichole Patrick MD [facility] 02/23/2012 Assessment & Plan (08/08/2021 11:19 AM [...] Type Department Care Team Description 07/23/2025 Telephone [facility] Accountable Care Organization [address] [place] [address] Collette [place]amo Unsuccessful Phone Call 1 [...] on file Legal Sex Male 11:01 AM PROJECT PORTFOLIO ANALYST Gender Identity Not on file Sexual Orientation [...] BLOOD ORDERABLES Final Re sult JENNIFER MCL[place]HLIN [address] [address] [place] [address] from Last 3 Months or Most Recently Relevant to Health Maintenance Insurance [facility] MEDICARE HMO [employer] CHOICE MEDICARE PPO
[2025-09-05 19:25] VITALS: BMI 23.8
[2025-09-05 19:42] VITALS: BP 116/70; PULSE 71; RESP 16; TEMP 36.4; O2SAT 98
--- NOTE | 2025-09-05 20:22 | ADMGEN ---
This patient, Osmel Esquivel, was admitted to Medical Room 251-. Patient/family oriented to hospital policies and general routines including ID bracelet, bed and alarms, visiting hours, pain management, procedures, bathroom and other care routines, personal items, smoking policy, room service/diet, and visiting hours. Information on how to activate the Rapid Response Team has been discussed. Patient/Family are encouraged to report perceived risks to care and to ask questions if they do not understand what they are told or what they should do.
[2025-09-05] MEDS: SODIUM CHLORIDE 0.9% IV 1,000 ML 125 ML IV CONT (20:24)
[2025-09-05] MEDS: HYDROmorphone HCL INJ (*CRX) 1 MG/ML SYR 0.4 MG IV PUSH (20:24)
[2025-09-05] MEDS: PANTOPRAZOLE 40 MG TABLET PO (23:52)
[2025-09-05] MEDS: TAMSULOSIN HCL 0.4 MG CAPSULE PO (23:53)
[2025-09-06] MEDS: HYDROmorphone HCL INJ (*CRX) 1 MG/ML SYR 0.4 MG IV PUSH (00:40)
[2025-09-06] MEDS: ONDANSETRON INJ 4 MG/2 ML VIAL IV PUSH ×2 (00:40→13:27)
[2025-09-06 05:20] LABS: Hematocrit 40.0 % (42.0-52.0); Hemoglobin 12.7 g/dL (14.0-18.0); Immature Granulocyte Percent A 0.5 % (0-0.5); Lymphocytes Absolute Auto 1.60 K/mm3 (0.9-3.2); Mean Corpuscular HGB Conc 31.8 g/dl (32-36); Mean Corpuscular Hemoglobin 28.2 pg (26-34); Mean Corpuscular Volume 88.7 fl (80-100); Nucleated Red Blood Cells Absolute Auto 0.000 K/mm3 (0.0-0.012); Nucleated Red Blood Cells Perc 0.0 % (0.0-0.2); Platelet Count Result 198 k/mm3 (150-375); Red Blood Count 4.51 M/mm3 (4.6-6.20); White Blood Count 7.3 K/mm3 (4.5-10.0)
[2025-09-06 06:14] LABS: Anion Gap 4 mmol/L (4-12); Blood Urea Nitrogen 14 mg/dL (9-20); Calcium 7.9 mg/dL (8.4-10.2); Carbon Dioxide 21 mmol/L (22-30); Chloride 113 mmol/L (98-107); Estimated CRCL calculation 70 ml/min; Estimated Glomerular Filt Rate > 60; Glucose 103 mg/dL (65-110); Potassium 4.2 mmol/L (3.4-5.0); Sodium 138 mmol/L (137-145)
[2025-09-06 06:29] VITALS: BP 101/51; PULSE 62; RESP 16; TEMP 36.6; O2SAT 99
--- NOTE | 2025-09-06 07:08 | P.CONUR_ITS ---
Assessment and Plan Assessment and plan (1) Left ureteral stone: Code(s): N20.1 - Calculus of ureter Status: Acute Assessment and Plan: * 7 mm left mid ureteral stone by CT last night * Will get a KUB to see the stone is progressed and then make a decision about appropriate intervention Urology Consult Note HPI Date Seen: 09/06/25 Requesting Physician: Jules Kan MD Primary Care Provider: Kash Manzanares, Consult Narrative Narrative: Osmel Esquivel is a 60 year old male who has had kidney stones in the remote past, now having intermittent left flank pain with nausea vomiting for 1 week. Imaging in the ER week ago showed a 7 mm proximal ureteral stone that, last night, was in the left mid ureter on follow-up imaging. He has had no fever chills or gross hematuria. Review of Systems 2 Cardiovascular: Cardiovascular: Denies chest pain, Denies lightheadedness, Denies palpitations and Denies dyspnea Respiratory: Respiratory: Denies dyspnea Gastrointestinal: Gastrointestinal: Denies diarrhea, Denies nausea and Denies vomiting Genitourinary: Genitourinary: Denies hematuria and Denies dysuria Endocrine: Endocrine: Denies palpitations PMFSH Past Medical History Medical History Alopecia universalis Kidney stones Spinal stenosis Duodenitis GERD (gastroesophageal reflux disease) H/O: CVA (cerebrovascular accident) 2/2 pituitary tumor Patient denies significant medical history Surgical History Surgical History H/O brain surgery 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 History of left heart catheterization Family History Family History (Updated 09/05/25 @ 19:41 by Angela Cerna RN) Mother Family history of diabetes mellitus in first degree relative Ovarian cancer Breast cancer Social History Social History Smoking packs per day: 0.5 Smoking cigarettes per day: 10.0 Years smoked: 40 Smoking pack-years: 20.00 Smoking status: Current every day smoker Tobacco type: cigarettes Alcohol intake: unknown Substance use: current Substance use type: marijuana Other substance usage details: MEDICAL CARD Lack of Transportation: No Lack of Food: Sometimes True Current Housing: I Have Housing Concerned About Future Housing: No Difficulty Paying Gas/Electric Bills: No Difficulty Paying for Meds: No Currently Unemployed: No Education: High School Diploma/GED Difficulty w/ Childcare or Family Care: No Living arrangements: with family Spiritual care concerns: No Meds Home Medications and Allergies Home Medications ?Medication ?Instructions ?Recorded ?Confirmed ?Type pantoprazole 40 mg tablet,delayed 40 mg PO BID #40 tab s 05/07/21 09/05/25 Rx release (Protonix) tamsulosin 0.4 mg capsule (Flomax) 0.4 mg PO DAILY #7 caps 08/29/25 09/05/25 Rx acetaminophen 500 mg tablet 1,000 mg PO Q4-6H PRN pain 09/05/25 09/05/25 History ibuprofen 200 mg capsule 400 mg PO Q6H PRN pain 09/0509/05/25 History Allergies Allergy/AdvReac Type Severity Reaction Status Date / Time tramadol Allergy Severe Gastrointestinal Verified 09/05/25 19:49 Upset NSAIDS (Non-Steroidal AdvReac Mild STOMACH Verified 09/05/25 19:49 Anti-Inflamma UPSET Vital Signs Vital Signs - 24 hr 09/05/25 15:29 09/05/25 18:31 09/05/25 19:42 Temperature 98.4 F 97.6 F Pulse Rate 55 L 78 71 Respiratory Rate 16 18 16 Blood Pressure 138/86 123/72 116/70 Pulse Oximetry 99 98 98 Oxygen Delivery Room Air 09/05/25 20:00 09/06/25 06:29 Temperature 97.9 F Pulse Rate 62 Respiratory Rate 16 Blood Pressure 101/51 L Pulse Oximetry 99 Oxygen Delivery Room Air Exam 2 Const: General: no acute distress Resp: Effort & Inspection: normal respiratory effort GI: Inspection: non-distended GI Palp: No abdominal tenderness and No Guarding due to palpation present (GI) Auscultation: normal bowel sounds Results Labs 09/06/25 04:54 09/06/25 04:54 Labs: Short CBC 09/05/25 09/06/25 Range/Units 15:38 04:54 WBC 7.2 7.3 (4.5-10.0) K/mm3 Hgb 14.8 12.7 L (14.0-18.0) g/dL Hct 46.2 40.0 L (42.0-52.0) % Plt Count 238 198 (150-375) k/mm3 BMP 09/05/25 09/06/25 15:38 04:54 Sodium 137 138 Potassium 4.1 4.2 Chloride 107 113 H Carbon Dioxide 21 L 21 L BUN 19 14 D Creatinine 1.26 1.01 Glucose 100 103 Calcium 9.0 7.9 L Liver Function 09/05/25 Range/Units 15:38 Total Bilirubin 0.7 (0.2-1.3) mg/dL AST 29 (17-59) U/L ALT 19 (6-50) U/L Alkaline Phosphatase 56 (38-126) U/L Albumin 4.6 (3.5-5.1) g/dL Urine 09/05/25 Range/Units 16:33 Urine Color Yellow (Yellow) Urine Appearance Clear (Clear) Urine pH 5.0 (5.0-9.0) Ur Specific [place] 1.023 (1.001-1.035) Urine Protein Trace (Negative) mg/dL Urine Glucose (UA) Negative (Negative) mg/dL
--- NOTE | 2025-09-06 07:16 | P.PNIM_ITS ---
Progress Note: A&P Assessment and Plan (1) Hydronephrosis with ureteral calculus: Code(s): N13.2 - Hydronephrosis with renal and ureteral calculous obstruction Status: Acute Assessment and Plan: Patient with sudden left flank pain starting today is rated at 9/10. 7 mm stone in the left mid ureter. Patient recently passed another stone on 08/29. * CT abdomen pelvis wo con: Mild left hydronephrosis secondary to 7 mm stone in the mid left ureter * NPO at midnight for possible lithotripsy * pain control with Dilaudid p.r.n. * Zofran p.r.n. * Urology consult, appreciate further recommendations * KUB to see if stone progressed * Shockwave lithotripsy this afternoon * Discharge after procedure (2) GERD (gastroesophageal reflux disease): Code(s): K21.9 - Gastro-esophageal reflux disease without esophagitis Status: Acute Assessment and Plan: * Pantoprazole 40mg BID Plan Diet: Regular-NPO at midnight GI prophylaxis: Pantoprazole DVT prophylaxis: SCDs lines/drains: PIV Fluids: 2 L NS bolus. Normal saline at 125 mL/hr. Code status: Full Subjective Date/time seen: 09/06/25 07:16 Interval history: 60-year-old male with past medical history of multiple kidney stones, spinal stenosis, duodenitis, GERD, benign pituitary tumor, smoker presents to the ED on 09/05/2025 with complaints of left-sided flank pain starting today after a coughing fit. 09/06/2025 Patient sitting comfortably in bed at time of examination. Denies any chest pain, shortness a breath, nausea/vomiting at this time. Repeat KUB this morning showed no pathology. Spoke with urologist, will take patient for shockwave lithotripsy this afternoon with hopeful discharge after procedure. Patient is amenable to this plan. Review of Systems Review of Systems: All systems reviewed & are unremarkable except as noted in HPI and below Exam Narrative: GENERAL: non-toxic appearing, appears uncomfortable. HEAD: Normocephalic, atraumatic. EYES: PERRLA. Conjunctivae clear. NOSE: Normal no drainage. THROAT: Pharynx clear, no exudate. NECK: Trachea midline. No adenopathy, no masses. RESPIRATORY: Airway patent, respirations nonlabored. CTA. CARDIOVASCULAR: Regular rate and rhythm GASTROINTESTINAL: Abdomen is soft and tender to left lower quadrant.. No organomegaly. Bowel sounds normal in all quadrants. GENITOURINARY: Defer MUSCULOSKELETAL: Moves all extremities. No gross deformities. No calf tenderness. SKIN: Warm, dry, normal color. NEURO: A&O X4. Speech clear PSYCHIATRIC: Normal interaction Objective Data Vital Signs Vital Signs: Vital Signs - 24 hr 09/05/25 15:29 09/05/25 18:31 09/05/25 19:42 Temperature 98.4 F 97.6 F Pulse Rate 55 L 78 71 Respiratory Rate 16 18 16 Blood Pressure 138/86 123/72 116/70 Pulse Oximetry 99 98 98 Oxygen Delivery Room Air 09/05/25 20:00 09/06/25 06:29 Temperature 97.9 F Pulse Rate 62 Respiratory Rate 16 Blood Pressure 101/51 L Pulse Oximetry 99 Oxygen Delivery Room Air Intake/Output Intake/Output: Intake & Output 09/03/25 09/04/25 09/05/25 09/06/25 23:59 23:59 23:59 23:59 Intake Total 1000 200 Output Total 1000 Balance 1000 -800 Meds/Results Medications: Active Medications Generic Name Dose Route Start Last Admin Trade Name Freq PRN Reason Stop Dose Admin Hydromorphone HCl 0.6 mg 09/05/25 17:58 Hydromorphone Hcl Inj (*Crx) 1 Mg/Ml Syr IV PUSH Q3H PRN Pain Rated 7-10 Hydromorphone HCl 0.4 mg 09/05/25 19:47 09/06/25 00:40 Hydromorphone Hcl Inj (*Crx) 1 Mg/Ml Syr IV PUSH 0.4 mg Q3H PRN Administration Pain Rated 4-6 Hydromorphone HCl 0.2 mg 09/05/25 19:47 Hydromorphone Hcl Inj (*Crx) 1 Mg/Ml Syr IV PUSH Q3H PRN Pain Rated 1-3 Sodium Chloride 1,000 mls @ 125 mls/hr 09/05/25 17:30 09/05/25 20:24 Normal Saline Iv IV CONT 125 mls/hr .Q8H PRASANNA Administration Ondansetron HCl 4 mg 09/05/25 19:45 09/06/25 00:40 Ondansetron Inj 4 Mg/2 Ml Vial IV PUSH 4 mg Q4H PRN Administration Nausea And Vomiting Pantoprazole Sodium 40 mg 09/05/25 22:05 09/05/25 23:52 Pantoprazole 40 Mg Tablet PO 40 mg BID PRASANNA Administration Tamsulosin HCl 0.4 mg 09/05/25 22:05 09/05/25 23:53 Tamsulosin Hcl 0.4 Mg Capsule PO 0.4 mg DAILY PRASANNA Administration Radiology Results: ITS Impressions Abdomen/Pelvis CT 09/05/25 15:57 IMPRESSION: Mild left hydronephrosis secondary to 7 mm stone in the mid left ureter All CT scans at this facility are performed using low dose modulation techniques as appropriate to perform exam including the following: automated exposure control; use of iterative reconstruction technique; adjustment of the mA and/or kV according to patient size (this includes techniques or standardized protocols for targeted exams where dose is matched to indication/reason for exam). Labs Labs: Laboratory Results - last 24 hr 09/05/25 09/05/25 09/06/25 15:38 16:33 04:54 WBC 7.2 7.3 RBC 5.33 4.51 L Hgb 14.8 12.7 L Hct 46.2 40.0 L MCV 86.7 88.7 MCH 27.8 28.2 MCHC 32.0 31.8 L RDW 13.1 13.2 Plt Count 238 198 MPV 9.3 9.9 Immature Gran % (Auto) 0.4 0.5 Neut % (Auto) 55.4 65.5 Lymph % (Auto) 29.0 21.8 [place] % (Auto) 11.7 H 10.9 H Eos % (Auto) 2.7 0.8 Baso % (Auto) 0.8 0.5 Lymph # (Auto) 2.07 1.60 [place] # (Auto) 0.8 H 0.8 H Eos # (Auto) 0.2 0.1 Baso # (Auto) 0.1 0.0 Abs Immat Gran (auto) 0.03 0.04 H Absolute Neuts (auto) 4.0 4.8 Absolute Nucleated RBC 0.000 0.000 Nucleated RBC % 0.0 0.0 Sodium 137 138 Potassium 4.1 4.2 Chloride 107 113 H Carbon Dioxide 21 L 21 L Anion Gap 9 4 BUN 19 14 D Creatinine 1.26 1.01 Estim Creat Clear Calc 56 70 Estimated GFR 59 > 60 Glucose 100 103 Calcium 9.0 7.9 L Total Bilirubin 0.7 AST 29 ALT 19 Alkaline Phosphatase 56 Total Protein 8.1 Albumin 4.6 Lipase 82 Urine Color Yellow Urine Appearance Clear Urine pH 5.0 Ur Specific [place] 1.023 Urine Protein Trace Urine Glucose (UA) Negative Urine Ketones 1+ H Ur Blood (Man) 3+ H Urine Nitrate Negative Urine Bilirubin Negative Urine Urobilinogen 0.2 Leukocyte Esterase Rfl Negative Urine RBC 21-50 H Urine WBC 0-5 Ur Squamous Epith Cells None seen Urine Bacteria None seen Urine Casts 0-2 Quality VTE Prophylaxis VTE prophylaxis: mechanical ordered
[2025-09-06] MEDS: PANTOPRAZOLE 40 MG TABLET PO ×2 (08:50→17:51)
[2025-09-06] MEDS: TAMSULOSIN HCL 0.4 MG CAPSULE PO (08:50)
[2025-09-06] MEDS: HYDROmorphone HCL INJ (*CRX) 1 MG/ML SYR 0.6 MG IV PUSH (13:29)
--- NOTE | 2025-09-06 13:36 | PC.NURSE ---
pt to surgery via wheelchair
[2025-09-06] MEDS: LACTATED RINGERS 1,000 ML 30 ML IV CONT (13:50)
--- NOTE | 2025-09-06 14:00 | WPDANESEPPF ---
Anes - Initial Pre Proc Eval Procedure: Operation Date: 09/06/25 15:15 Proposed Procedures p Left Extracorporeal Shock Wave Lithotripsy - Wilfredo Enamorado MD Date/Time: 09/06/25 14:00 Surgeon: Jules Kan MD Pre Op Diagnosis: Left Ureteral Stone in the Mid Ureteral W Mild Hyd Patient Data Age: 60 Gender: M Height: 1.75 m Weight: 73 kg Last Vital Signs Temp 97.9 F 09/06/25 06:29 Pulse 62 09/06/25 06:29 Resp 16 09/06/25 06:29 BP 101/51 L 09/06/25 06:29 Pulse Ox 99 09/06/25 06:29 O2 Del Method Room Air 09/06/25 08:25 Allergies Allergy/AdvReac Type Severity Reaction Status Date / Time tramadol Allergy Severe Gastrointestinal Verified 09/06/25 13:52 Upset NSAIDS (Non-Steroidal AdvReac Mild STOMACH Verified 09/06/25 13:52 Anti-Inflamma UPSET Home Medications ?Medication ?Instructions ?Recorded ?Confirmed ?Type pantoprazole 40 mg tablet,delayed 40 mg PO BID #40 tabs 05/07/21 09/05/25 Rx release (Protonix) tamsulosin 0.4 mg capsule (Flomax) 0.4 mg PO DAILY #7 caps 08/29/25 09/05/25 Rx acetaminophen 500 mg tablet 1,000 mg PO Q4-6H PRN pain 09/05/25 09/05/25 History ibuprofen 200 mg capsule 400 mg PO Q6H PRN pain 09/05/25 09/05/25 History Laboratory Tests 09/05/25 09/05/25 09/06/25 15:38 16:33 04:54 WBC 7.2 K/mm3 7.3 K/mm3 (4.5-10.0) (4.5-10.0) RBC 5.33 M/mm3 4.51 L M/mm3 (4.6-6.20) (4.6-6.20) Hgb 14.8 g/dL 12.7 L g/dL (14.0-18.0) (14.0-18.0) Hct 46.2 % 40.0 L % (42.0-52.0) (42.0-52.0) MCV 86.7 fl 88.7 fl (80-100) (80-100) MCH 27.8 pg 28.2 pg (26-34) (26-34) MCHC 32.0 g/dl 31.8 L g/dl (32-36) (32-36) RDW 13.1 % 13.2 % (11.5-14.5) (11.5-14.5) Plt Count 238 k/mm3 198 k/mm3 (150-375) (150-375) MPV 9.3 fl 9.9 fl (7.4-10.4) (7.4-10.4) Immature Gran % (Auto) 0.4 % 0.5 % (0-0.5) (0-0.5) Neut % (Auto) 55.4 % 65.5 % (45.5-73.1) (45.5-73.1) Lymph % (Auto) 29.0 % 21.8 % (18.3-44.2) (18.3-44.2) [place] % (Auto) 11.7 H % 10.9 H % (2.6-8.5) (2.6-8.5) Eos % (Auto) 2.7 % 0.8 % (0-4.4) (0-4.4) Baso % (Auto) 0.8 % 0.5 % (0.2-1.2) (0.2-1.2) Lymph # (Auto) 2.07 K/mm3 1.60 K/mm3 (0.9-3.2) (0.9-3.2) [place] # (Auto) 0.8 H K/mm3 0.8 H K/mm3 (0.1-0.6) (0.1-0.6) Eos # (Auto) 0.2 K/mm3 0.1 K/mm3 (0-0.3) (0-0.3) Baso # (Auto) 0.1 K/mm3 0.0 K/mm3 (0.0-0.1) (0.0-0.1) Abs Immat Gran (auto) 0.03 K/mm3 0.04 H K/mm3 (0.00-0.031) (0.00-0.031) Absolute Neuts (auto) 4.0 K/mm3 4.8 K/mm3 (1.3-6.7) (1.3-6.7) Absolute Nucleated RBC 0.000 K/mm3 0.000 K/mm3 (0.0-0.012) (0.0-0.012) Nucleated RBC % 0.0 % 0.0 % (0.0-0.2) (0.0-0.2) Sodium 137 mmol/L 138 mmol/L (137-145) (137-145) Potassium 4.1 mmol/L 4.2 mmol/L (3.4-5.0) (3.4-5.0) Chloride 107 mmol/L 113 H mmol/L (98-107) (98-107) Carbon Dioxide 21 L mmol/L 21 L mmol/L (22-30) (22-30) Anion Gap 9 mmol/L 4 mmol/L (4-12) (4-12) BUN 19 mg/dL 14 D mg/dL (9-20) (9-20) Creatinine 1.26 mg/dL 1.01 mg/dL (0.7-1.3) (0.7-1.3) Estim Creat Clear Calc 56 ml/min 70 ml/min Estimated GFR 59 > 60 (59 - ) (59 - ) Glucose 100 mg/dL 103 mg/dL (65-110) (65-110) Calcium 9.0 mg/dL 7.9 L mg/dL (8.4-10.2) (8.4-10.2) Total Bilirubin 0.7 mg/dL (0.2-1.3) AST 29 U/L (17-59) ALT 19 U/L (6-50) Alkaline Phosphatase 56 U/L (38-126) Total Protein 8.1 g/dL (6.3-8.2) Albumin 4.6 g/dL (3.5-5.1) Lipase 82 U/L (23-300) Urine Color Yellow (Yellow) Urine Appearance Clear (Clear) Urine pH 5.0 (5.0-9.0) Ur Specific [place] 1.023 (1.001-1.035) Urine Protein Trace mg/dL (Negative) Urine Glucose (UA) Negative mg/dL (Negative) Urine Ketones 1+ H mg/dL (Negative) Ur Blood (Man) 3+ H (Negative) Urine Nitrate Negative (Negative) Urine Bilirubin Negative (Negative) Urine Urobilinogen 0.2 mg/dL (<2.0) Leukocyte Esterase Rfl Negative RAMESH/UL (Negative) Urine RBC 21-50 H /hpf (0-2) Urine WBC 0-5 /hpf (0-3) Ur Squamous Epith Cells None seen /hpf (Few) Urine Bacteria None seen /hpf Urine Casts 0-2 Patient hx anesthesia problems: none Family hx anesthesia problems: none Results Review: All pre-operative results and documents have been reviewed as part of the pre-operative evaluation. 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 Patient denies significant medical history Surgical History Surgical History H/O brain surgery 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 History of left heart catheterization Family History Family History Mother Family history of diabetes mellitus in first degree relative Ovarian cancer Breast cancer Social History Social History Smoking packs per day: 0.5 Smoking cigarettes per day: 10.0 Years smoked: 40 Smoking pack-years: 20.00 Smoking status: Current every day smoker Tobacco type: cigarettes Alcohol intake: unknown Substance use: current Substance use type: marijuana Other substance usage details: MEDICAL CARD Lack of Transportation: No Lack of Food: Sometimes True Current Housing: I Have Housing Concerned About Future Housing: No Difficulty Paying Gas/Electric Bills: No Difficulty Paying for Meds: No Currently Unemployed: No Education: High School Diploma/GED Difficulty w/ Childcare or Family Care: No Living arrangements: with family Spiritual care concerns: No Anes - Eval Final PreProcedure Day of Procedure 09/06/25 14:00 Patient weight: normal Lungs: normal air movement Airway: Mallampati scale class II Neurological: alert and oriented Last oral intake: >/= 8 hours ASA classification: III Emergent: no Anesthetic plan: proceed Anesthesia type and monitoring: general ETT and standard monitoring Results Review: All pre-operative results and documents have been reviewed as part of the pre-operative evaluation. Hx of TIA, brain sx for pit adenoma, no deficits. Smoker 3/4 ppd for 30 years. Informed Consent: The patient's anesthetic plan and its attendant risks and benefits were discussed with the patient/family/POA. Questions were solicited and answers provided to the satisfaction of the patient/family/POA.
[2025-09-06] MEDS: ceFAZolin 2 GM in SODIUM CHLORIDE 0.9% IV 50 ML 100 ML IVPB (14:38)
--- NOTE | 2025-09-06 14:39 | WPDANESEPPF ---
Anes - Initial Pre Proc Eval Procedure: Operation Date: 09/06/25 15:15 Proposed Procedures p Left Extracorporeal Shock Wave Lithotripsy - Wilfredo Enamorado MD Date/Time: 09/06/25 14:39 Surgeon: Jules Kan MD Pre Op Diagnosis: Left Ureteral Stone in the Mid Ureteral W Mild Hyd Patient Data Age: 60 Gender: M Height: 1.75 m Weight: 73 kg Last Vital Signs Temp 97.9 F 09/06/25 06:29 Pulse 62 09/06/25 06:29 Resp 16 09/06/25 06:29 BP 101/51 L 09/06/25 06:29 Pulse Ox 99 09/06/25 06:29 O2 Del Method Room Air 09/06/25 08:25 Allergies Allergy/AdvReac Type Severity Reaction Status Date / Time tramadol Allergy Severe Gastrointestinal Verified 09/06/25 13:52 Upset NSAIDS (Non-Steroidal AdvReac Mild STOMACH Verified 09/06/25 13:52 Anti-Inflamma UPSET Home Medications ?Medication ?Instructions ?Recorded ?Confirmed ?Type pantoprazole 40 mg tablet,delayed 40 mg PO BID #40 tabs 05/07/21 09/05/25 Rx release (Protonix) tamsulosin 0.4 mg capsule (Flomax) 0.4 mg PO DAILY #7 caps 08/29/25 09/05/25 Rx acetaminophen 500 mg tablet 1,000 mg PO Q4-6H PRN pain 09/05/25 09/05/25 History ibuprofen 200 mg capsule 400 mg PO Q6H PRN pain 09/05/25 09/05/25 History Laboratory Tests 09/05/25 09/05/25 09/06/25 15:38 16:33 04:54 WBC 7.2 K/mm3 7.3 K/mm3 (4.5-10.0) (4.5-10.0) RBC 5.33 M/mm3 4.51 L M/mm3 (4.6-6.20) (4.6-6.20) Hgb 14.8 g/dL 12.7 L g/dL (14.0-18.0) (14.0-18.0) Hct 46.2 % 40.0 L % (42.0-52.0) (42.0-52.0) MCV 86.7 fl 88.7 fl (80-100) (80-100) MCH 27.8 pg 28.2 pg (26-34) (26-34) MCHC 32.0 g/dl 31.8 L g/dl (32-36) (32-36) RDW 13.1 % 13.2 % (11.5-14.5) (11.5-14.5) Plt Count 238 k/mm3 198 k/mm3 (150-375) (150-375) MPV 9.3 fl 9.9 fl (7.4-10.4) (7.4-10.4) Immature Gran % (Auto) 0.4 % 0.5 % (0-0.5) (0-0.5) Neut % (Auto) 55.4 % 65.5 % (45.5-73.1) (45.5-73.1) Lymph % (Auto) 29.0 % 21.8 % (18.3-44.2) (18.3-44.2) [place] % (Auto) 11.7 H % 10.9 H % (2.6-8.5) (2.6-8.5) Eos % (Auto) 2.7 % 0.8 % (0-4.4) (0-4.4) Baso % (Auto) 0.8 % 0.5 % (0.2-1.2) (0.2-1.2) Lymph # (Auto) 2.07 K/mm3 1.60 K/mm3 (0.9-3.2) (0.9-3.2) [place] # (Auto) 0.8 H K/mm3 0.8 H K/mm3 (0.1-0.6) (0.1-0.6) Eos # (Auto) 0.2 K/mm3 0.1 K/mm3 (0-0.3) (0-0.3) Baso # (Auto) 0.1 K/mm3 0.0 K/mm3 (0.0-0.1) (0.0-0.1) Abs Immat Gran (auto) 0.03 K/mm3 0.04 H K/mm3 (0.00-0.031) (0.00-0.031) Absolute Neuts (auto) 4.0 K/mm3 4.8 K/mm3 (1.3-6.7) (1.3-6.7) Absolute Nucleated RBC 0.000 K/mm3 0.000 K/mm3 (0.0-0.012) (0.0-0.012) Nucleated RBC % 0.0 % 0.0 % (0.0-0.2) (0.0-0.2) Sodium 137 mmol/L 138 mmol/L (137-145) (137-145) Potassium 4.1 mmol/L 4.2 mmol/L (3.4-5.0) (3.4-5.0) Chloride 107 mmol/L 113 H mmol/L (98-107) (98-107) Carbon Dioxide 21 L mmol/L 21 L mmol/L (22-30) (22-30) Anion Gap 9 mmol/L 4 mmol/L (4-12) (4-12) BUN 19 mg/dL 14 D mg/dL (9-20) (9-20) Creatinine 1.26 mg/dL 1.01 mg/dL (0.7-1.3) (0.7-1.3) Estim Creat Clear Calc 56 ml/min 70 ml/min Estimated GFR 59 > 60 (59 - ) (59 - ) Glucose 100 mg/dL 103 mg/dL (65-110) (65-110) Calcium 9.0 mg/dL 7.9 L mg/dL (8.4-10.2) (8.4-10.2) Total Bilirubin 0.7 mg/dL (0.2-1.3) AST 29 U/L (17-59) ALT 19 U/L (6-50) Alkaline Phosphatase 56 U/L (38-126) Total Protein 8.1 g/dL (6.3-8.2) Albumin 4.6 g/dL (3.5-5.1) Lipase 82 U/L (23-300) Urine Color Yellow (Yellow) Urine Appearance Clear (Clear) Urine pH 5.0 (5.0-9.0) Ur Specific [place] 1.023 (1.001-1.035) Urine Protein Trace mg/dL (Negative) Urine Glucose (UA) Negative mg/dL (Negative) Urine Ketones 1+ H mg/dL (Negative) Ur Blood (Man) 3+ H (Negative) Urine Nitrate Negative (Negative) Urine Bilirubin Negative (Negative) Urine Urobilinogen 0.2 mg/dL (<2.0) Leukocyte Esterase Rfl Negative RAMESH/UL (Negative) Urine RBC 21-50 H /hpf (0-2) Urine WBC 0-5 /hpf (0-3) Ur Squamous Epith Cells None seen /hpf (Few) Urine Bacteria None seen /hpf Urine Casts 0-2 Patient hx anesthesia problems: none Family hx anesthesia problems: none Results Review: All pre-operative results and documents have been reviewed as part of the pre-operative evaluation. [facility] Past Medical History Medical History Alopecia universalis Kidney stones Spinal stenosis Duodenitis GERD (gastroesophageal reflux disease) H/O: CVA (cerebrovascular accident) 2/2 pituitary tumor Patient denies significant medical history Surgical History Surgical History H/O brain surgery 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 History of left heart catheterization Family History Family History Mother Family history of diabetes mellitus in first degree relative Ovarian cancer Breast cancer Social History Social History Smoking packs per day: 0.5 Smoking cigarettes per day: 10.0 Years smoked: 40 Smoking pack-years: 20.00 Smoking status: Current every day smoker Tobacco type: cigarettes Alcohol intake: unknown Substance use: current Substance use type: marijuana Other substance usage details: MEDICAL CARD Lack of Transportation: No Lack of Food: Sometimes True Current Housing: I Have Housing Concerned About Future Housing: No Difficulty Paying Gas/Electric Bills: No Difficulty Paying for Meds: No Currently Unemployed: No Education: High School Diploma/GED Difficulty w/ Childcare or Family Care: No Living arrangements: with family Spiritual care concerns: No Anes - Eval Final PreProcedure Day of Procedure 09/06/25 14:39 Patient weight: normal Lungs: normal air movement Airway: Mallampati scale class II and special considerations (Large chip to R incisor. ) Neurological: alert and oriented Last oral intake: >/= 8 hours ASA classification: IV Emergent: no Anesthetic plan: proceed Anesthesia type and monitoring: general GIVS and standard monitoring Results Review: All pre-operative results and documents have been reviewed as part of the pre-operative evaluation. Complicated long hx reviewed w pt and at bedside. Pt breathing at baseline, no cp or sob, no oxygen requirements. Pt w N/V, stable on now, for EGD. Informed Consent: The patient's anesthetic plan and its attendant risks and benefits were discussed with the patient/family/POA. Questions were solicited and answers provided to the satisfaction of the patient/family/POA.
--- NOTE | 2025-09-06 14:57 | W.PM.PROC2 ---
Procedure Note - Detailed Date of Procedure 09/06/25 Pre-op Diagnosis Left mid-ureteral stone Post-op Diagnosis Same Procedure Performed Left ESWL Surgeon Wilfredo Enamorado MD Anesthesia General Description of Procedure The patient was brought to the operative suite where he was placed in the supine position on the Dornier lithotripsy table. The focal point of the lithotripter was placed at a 4-5mm left mid-ureteral calculus. A total of 3000 shocks were delivered at a power setting of 5. There appeared to be good fragmentation of the stone. The patient tolerated the procedure well and was taken to the recovery room in good condition. Urine Output 1,000 Drains No Pathology None sent Complications No immediate complications
--- NOTE | 2025-09-06 15:19 | P.DS_ITS ---
DS: Admitting Diagnosis Discharge Date 09/06/2025 Admitting Diagnosis Hydronephrosis with ureteral calculus DS: Discharge Diagnosis Discharge Diagnosis (1) Hydronephrosis with ureteral calculus: Code(s): N13.2 - Hydronephrosis with renal and ureteral calculous obstruction Status: Acute Assessment and Plan: Patient with sudden left flank pain starting today is rated at 9/10. 7 mm stone in the left mid ureter. Patient recently passed another stone on 08/29. * CT abdomen pelvis wo con: Mild left hydronephrosis secondary to 7 mm stone in the mid left ureter * NPO at midnight for possible lithotripsy * pain control with Dilaudid p.r.n. * Zofran p.r.n. * Urology consult, appreciate further recommendations * KUB to see if stone progressed * Shockwave lithotripsy this afternoon * Discharge after procedure (2) GERD (gastroesophageal reflux disease): Code(s): K21.9 - Gastro-esophageal reflux disease without esophagitis Status: Acute Assessment and Plan: * Pantoprazole 40mg BID Plan Diet: Regular-NPO at midnight GI prophylaxis: Pantoprazole DVT prophylaxis: SCDs lines/drains: PIV Fluids: 2 L NS bolus. Normal saline at 125 mL/hr. Code status: Full DS: Summary Hospital Course Reason for hospitalization: Left-sided flank pain Hospital Course: Per HPI: 60-year-old male with past medical history of multiple kidney stones, spinal stenosis, duodenitis, GERD, benign pituitary tumor, smoker presents to the ED on 09/05/2025 with complaints of left-sided flank pain starting today after a coughing fit. Described as a sharp stabbing pain rated as high as a 9/10. Denies fevers or chills. No changes in bowel or bladder habits. The patient had the same symptoms on 08/29 and was able to pass the stone on his own. He states he has been having issues with kidney stones for about 15 years. He did have 1 episode of emesis today due to the pain. Hemodynamically stable. Afebrile, 99% on room air Lab work unremarkable. UA with no signs of infection but 3+ blood and 21-[address] revealed mild left hydronephrosis secondary to 7 mm stone in the mid left ureter Hospital course: Time Spent with Patient Time attestation: Total time spent providing and/or coordinating discharge services: Exam Narrative: GENERAL: non-toxic appearing, appears uncomfortable. HEAD: Normocephalic, atraumatic. EYES: PERRLA. Conjunctivae clear. NOSE: Normal no drainage. THROAT: Pharynx clear, no exudate. NECK: Trachea midline. No adenopathy, no masses. RESPIRATORY: Airway patent, respirations nonlabored. CTA. CARDIOVASCULAR: Regular rate and rhythm GASTROINTESTINAL: Abdomen is soft and tender to left lower quadrant.. No organomegaly. Bowel sounds normal in all quadrants. GENITOURINARY: Defer MUSCULOSKELETAL: Moves all extremities. No gross deformities. No calf tenderness. SKIN: Warm, dry, normal color. NEURO: A&O X4. Speech clear PSYCHIATRIC: Normal interaction DS: Data Data Completed and Pending Labs on day of discharge: Labs from last 24 hours 09/06/25 09/05/25 09/05/25 04:54 16:33 15:38 WBC 7.3 7.2 RBC 4.51 L 5.33 Hgb 12.7 L 14.8 Hct 40.0 L 46.2 MCV 88.7 86.7 MCH 28.2 27.8 MCHC 31.8 L 32.0 RDW 13.2 13.1 Plt Count 198 238 MPV 9.9 9.3 Immature Gran % (Auto) 0.5 0.4 Neut % (Auto) 65.5 55.4 Lymph % (Auto) 21.8 29.0 [place] % (Auto) 10.9 H 11.7 H Eos % (Auto) 0.8 2.7 Baso % (Auto) 0.5 0.8 Lymph # (Auto) 1.60 2.07 [place] # (Auto) 0.8 H 0.8 H Eos # (Auto) 0.1 0.2 Baso # (Auto) 0.0 0.1 Abs Immat Gran (auto) 0.04 H 0.03 Absolute Neuts (auto) 4.8 4.0 Absolute Nucleated RBC 0.000 0.000 Nucleated RBC % 0.0 0.0 Sodium 138 137 Potassium 4.2 4.1 Chloride 113 H 107 Carbon Dioxide 21 L 21 L Anion Gap 4 9 BUN 14 D 19 Creatinine 1.01 1.26 Estim Creat Clear Calc 70 56 Estimated GFR > 60 59 Glucose 103 100 Calcium 7.9 L 9.0 Total Bilirubin 0.7 AST 29 ALT 19 Alkaline Phosphatase 56 Total Protein 8.1 Albumin 4.6 Lipase 82 Urine Color Yellow Urine Appearance Clear Urine pH 5.0 Ur Specific [place] 1.023 Urine Protein Trace Urine Glucose (UA) Negative Urine Ketones 1+ H Ur Blood (Man) 3+ H Urine Nitrate Negative Urine Bilirubin Negative Urine Urobilinogen 0.2 Leukocyte Esterase Rfl Negative Urine RBC 21-50 H Urine WBC 0-5 Ur Squamous Epith Cells None seen Urine Bacteria None seen Urine Casts 0-2 Discharge Plan Discharge Attending physician on discharge: Severo Kan Consulting providers: Primo Morrow; Sourav Cruz Discharging Clinician: Wilfredo Enamorado Patient Disposition: Home Activity: other - see discharge instructions Diet: other - see discharge instructions Discharge Instructions: 1) Activity: * No driving or important decisions [id number]. * No lifting/straining >15lbs. [id number]. 2) Strain urine until one stone fragment retrieved. Bring that fragment to your follow-up visit. 3) Diet: resume normal pre-admission diet. 4) Follow-up: 2-3 weeks with KUB / call for appointment ([phone]) 5) Prescription for pain medications was sent to your pharmacy -> to be picked- up only if needed. Patient Instructions: Antibiotic Form Patient Language: Kyrgyz Stand Alone Forms: General Discharge Information Follow-up/Referrals: Wilfredo Enamorado MD [Physician, Urology] Discharge Medications: New hydrocodone-acetaminophen 5-325 mg tablet 1 - 2 tablet PO Q6H PRN (Reason: pain) Qty: 20 0RF Continued pantoprazole [Protonix] 40 mg tablet,delayed release (DR/EC) 40 mg PO BID Qty: 40 0RF acetaminophen 500 mg tablet 1,000 mg PO Q4-6H PRN (Reason: pain) ibuprofen 200 mg capsule 400 mg PO Q6H PRN (Reason: pain) Patient Comments: Patient has listed as allergy but stated it will cause upset stomach but needs to take something other than Tylenol tamsulosin [Flomax] 0.4 mg capsule 0.4 mg PO DAILY Qty: 7 0RF Other Ambulatory Orders: XR abdomen/kub 1V (Routine) Timeframe: 2 Weeks Location: Determined by Patient Ordered By: Wilfredo Enamorado Date of admission: 09/05/25 18:22 Primary Care Provider: Leighton,Kash Sebastian Admitting Provider: Severo Kan Attending physician on admission: Severo Kan Condition: Stable Quality VTE Prophylaxis VTE prophylaxis: mechanical ordered
[2025-09-06 15:37] VITALS: BP 104/67; PULSE 101; RESP 16; TEMP 36.3; O2SAT 100
[2025-09-06 15:50] VITALS: BP 109/64; PULSE 75; RESP 20; O2SAT 100
[2025-09-06 16:05] VITALS: BP 110/68; PULSE 72; RESP 12; O2SAT 100
[2025-09-06 16:20] VITALS: BP 111/65; PULSE 67; RESP 12; O2SAT 99
--- NOTE | 2025-09-06 16:29 | PC.NURSE ---
pt returned to room following procedure, reviewed plan of care, resting comfortably
[2025-09-06 20:00] VITALS: BP 133/65; PULSE 77; RESP 18; TEMP 36.6; O2SAT 98
[2025-09-07] MEDS: HYDROmorphone HCL INJ (*CRX) 1 MG/ML SYR 0.6 MG IV PUSH ×2 (01:17→04:51)
[2025-09-07 05:43] VITALS: BP 108/56; PULSE 61; RESP 18; TEMP 36.5; O2SAT 98
[2025-09-07 06:53] LABS: Hematocrit 38.0 % (42.0-52.0); Hemoglobin 12.2 g/dL (14.0-18.0); Immature Granulocyte Percent A 0.4 % (0-0.5); Lymphocytes Absolute Auto 1.77 K/mm3 (0.9-3.2); Mean Corpuscular HGB Conc 32.1 g/dl (32-36); Mean Corpuscular Hemoglobin 27.8 pg (26-34); Mean Corpuscular Volume 86.6 fl (80-100); Nucleated Red Blood Cells Absolute Auto 0.000 K/mm3 (0.0-0.012); Nucleated Red Blood Cells Perc 0.0 % (0.0-0.2); Platelet Count Result 193 k/mm3 (150-375); Red Blood Count 4.39 M/mm3 (4.6-6.20); White Blood Count 11.1 K/mm3 (4.5-10.0)
[2025-09-07 07:19] LABS: Alanine Aminotransferase 14 U/L (6-50); Albumin Level 3.2 g/dL (3.5-5.1); Alkaline Phosphatase 47 U/L (38-126); Anion Gap 5 mmol/L (4-12); Aspartate Amino Transferase 45 U/L (17-59); Bilirubin,Total 0.5 mg/dL (0.2-1.3); Blood Urea Nitrogen 13 mg/dL (9-20); Calcium 8.2 mg/dL (8.4-10.2); Carbon Dioxide 22 mmol/L (22-30); Chloride 110 mmol/L (98-107); Estimated CRCL calculation 67 ml/min; Estimated Glomerular Filt Rate > 60; Glucose 94 mg/dL (65-110); Potassium 3.8 mmol/L (3.4-5.0); Sodium 137 mmol/L (137-145); Total Protein 5.9 g/dL (6.3-8.2)
[2025-09-07] MEDS: PANTOPRAZOLE 40 MG TABLET PO (08:11)
[2025-09-07] MEDS: TAMSULOSIN HCL 0.4 MG CAPSULE PO (08:11)
--- NOTE | 2025-09-07 08:47 | P.DS_ITS ---
DS: Admitting Diagnosis Discharge Date 09/07/2025 Admitting Diagnosis Ureteral Calculus DS: Discharge Diagnosis Discharge Diagnosis (1) Hydronephrosis with ureteral calculus: Code(s): N13.2 - Hydronephrosis with renal and ureteral calculous obstruction Status: Acute Assessment and Plan: Patient with sudden left flank pain starting today is rated at 9/10. 7 mm stone in the left mid ureter. Patient recently passed another stone on 08/29. * CT abdomen pelvis wo con: Mild left hydronephrosis secondary to 7 mm stone in the mid left ureter * NPO at midnight for possible lithotripsy * pain control with Dilaudid p.r.n. * Zofran p.r.n. * Urology consult, appreciate further recommendations * KUB to see if stone progressed * Shockwave lithotripsy this afternoon * Discharge after procedure (2) GERD (gastroesophageal reflux disease): Code(s): K21.9 - Gastro-esophageal reflux disease without esophagitis Status: Acute Assessment and Plan: * Pantoprazole 40mg BID Plan Diet: Regular-NPO at midnight GI prophylaxis: Pantoprazole DVT prophylaxis: SCDs lines/drains: PIV Fluids: 2 L NS bolus. Normal saline at 125 mL/hr. Code status: Full DS: Summary Hospital Course Reason for hospitalization: Left-sided flank pain Hospital Course: Per HPI: 60-year-old male with past medical history of multiple kidney stones, spinal stenosis, duodenitis, GERD, benign pituitary tumor, smoker presents to the ED on 09/05/2025 with complaints of left-sided flank pain starting today after a coughing fit. Described as a sharp stabbing pain rated as high as a 9/10. Denies fevers or chills. No changes in bowel or bladder habits. The patient had the same symptoms on 08/29 and was able to pass the stone on his own. He states he has been having issues with kidney stones for about 15 years. He did have 1 episode of emesis today due to the pain. Hemodynamically stable. Afebrile, 99% on room air Lab work unremarkable. UA with no signs of infection but 3+ blood and 21-[address] revealed mild left hydronephrosis secondary to 7 mm stone in the mid left ureter Hospital Course: Urology was consulted for left ureteral stone measuring 7 mm. KUB was ordered which showed no acute abdominal abnormality identified. Patient was then taken for shockwave lithotripsy in the afternoon of 09/06. Patient tolerated the procedure well, which resulted fragmentation of a 4-5 mm left mid ureteral calculus. He did experience moderate left-sided abdominal discomfort post procedure and was held overnight for monitoring. Patient endorsed expulsion of several ureteral stones with associated nausea/vomiting. In the morning of 09/07 patient endorsed significant improvement of symptoms and felt as though he was ready to be discharged. Urology cleared patient for discharge with appropriate follow-up in the outpatient setting with their office. Patient is otherwise hemodynamically stable for discharge at this time. Patient to be discharged home at this time. Status at Discharge Functional status at discharge: independent ambulation Overall status at discharge: patient is back to baseline Time Spent with Patient Time attestation: Total time spent providing and/or coordinating discharge services: 36 Exam Narrative: GENERAL: non-toxic appearing, appears uncomfortable. HEAD: Normocephalic, atraumatic. EYES: PERRLA. Conjunctivae clear. NOSE: Normal no drainage. THROAT: Pharynx clear, no exudate. NECK: Trachea midline. No adenopathy, no masses. RESPIRATORY: Airway patent, respirations nonlabored. CTA. CARDIOVASCULAR: Regular rate and rhythm GASTROINTESTINAL: Abdomen is soft and tender to left lower quadrant.. No organomegaly. Bowel sounds normal in all quadrants. GENITOURINARY: Defer MUSCULOSKELETAL: Moves all extremities. No gross deformities. No calf tenderness. SKIN: Warm, dry, normal color. NEURO: A&O X4. Speech clear PSYCHIATRIC: Normal interaction DS: Data Data Completed and Pending Labs on day of discharge: Labs from last 24 hours 09/07/25 06:48 WBC 11.1 H RBC 4.39 L Hgb 12.2 L Hct 38.0 L MCV 86.6 MCH 27.8 MCHC 32.1 RDW 13.3 Plt Count 193 MPV 9.7 Immature Gran % (Auto) 0.4 Neut % (Auto) 72.4 Lymph % (Auto) 16.0 L [place] % (Auto) 10.4 H Eos % (Auto) 0.4 Baso % (Auto) 0.4 Lymph # (Auto) 1.77 [place] # (Auto) 1.2 H Eos # (Auto) 0.0 Baso # (Auto) 0.0 Abs Immat Gran (auto) 0.04 H Absolute Neuts (auto) 8.0 H Absolute Nucleated RBC 0.000 Nucleated RBC % 0.0 Sodium 137 Potassium 3.8 Chloride 110 H Carbon Dioxide 22 Anion Gap 5 BUN 13 Creatinine 1.06 Estim Creat Clear Calc 67 Estimated GFR > 60 Glucose 94 Calcium 8.2 L Total Bilirubin 0.5 AST 45 ALT 14 Alkaline Phosphatase 47 Total Protein 5.9 L Albumin 3.2 L Discharge Plan Discharge Attending physician on discharge: Severo Kan Consulting providers: Sourav Cruz; Primo Morrow Discharging Clinician: Wilfredo Enamorado Patient Disposition: Home Activity: other - see discharge instructions Diet: other - see discharge instructions Discharge Instructions: 1) Activity: * No driving or important decisions [id number]. * No lifting/straining >15lbs. [id number]. 2) Strain urine until one stone fragment retrieved. Bring that fragment to your follow-up visit. 3) Diet: resume normal pre-admission diet. 4) Follow-up: 2-3 weeks with KUB / call for appointment ([phone]) 5) Prescription for pain medications was sent to your pharmacy -> to be picked- up only if needed. Patient Instructions: Antibiotic Form Patient Language: Tuvaluan Stand Alone Forms: General Discharge Information Follow-up/Referrals: Wilfredo Enamorado MD [Physician, Urology] Discharge Medications: New hydrocodone-acetaminophen 5-325 mg tablet 1 - 2 tablet PO Q6H PRN (Reason: pain) Qty: 20 0RF Continued pantoprazole [Protonix] 40 mg tablet,delayed release (DR/EC) 40 mg PO BID Qty: 40 0RF acetaminophen 500 mg tablet 1,000 mg PO Q4-6H PRN (Reason: pain) ibuprofen 200 mg capsule 400 mg PO Q6H PRN (Reason: pain) Patient Comments: Patient has listed as allergy but stated it will cause upset stomach but needs to take something other than Tylenol tamsulosin [Flomax] 0.4 mg capsule 0.4 mg PO DAILY Qty: 7 0RF Other Ambulatory Orders: XR abdomen/kub 1V (Routine) Timeframe: 2 Weeks Location: Determined by Patient Ordered By: Wilfredo Enamorado Date of admission: 09/05/25 18:22 Primary Care Provider: Leighton,Kash Sebastian Admitting Provider: Severo Kan Attending physician on admission: Severo Kan Condition: Stable Quality VTE Prophylaxis VTE prophylaxis: mechanical ordered
--- NOTE | 2025-09-09 12:56 | WPDHPUPDATE1 ---
History and Physical Update Update Date/Time: 09/09/25 12:56 History and Physical has been reviewed, including an updated exam of the patient. There are NO changes in the patient's condition. Risks, benefits, and alternatives have been discussed and questions answered. Patient agrees to proceed with procedure.
== END 2025-09-07 08:50 | disposition home or self-care (01) ==
LOC: ANHED 17:25 → ANH2MED 18:52
PROVIDERS: Nurse Practitioner Adult Health; Physician Assistant; Urology; Admitting Provider Internal Medicine; Emergency Provider Nurse Practitioner Family; PCP Family Medicine; Visit Provider Internal Medicine
PROC: (CPT 50590; principal; 2025-09-06 15:15)
DX: N13.2 Hydronephrosis with renal and ureteral calculous obstruction (principal); M48.00 Spinal stenosis, site unspecified; K21.9 Gastro-esophageal reflux disease without esophagitis; F17.210 Nicotine dependence, cigarettes, uncomplicated; F12.90 Cannabis use, unspecified, uncomplicated; Z86.73 Personal history of transient ischemic attack (TIA), and cerebral infarction without residual deficits; Z86.018 Personal history of other benign neoplasm
CPT/HCPCS: 50590; 36415; 74018; 74176; 80048; 80053; 81001; 83690; 85025; 96361; 96374; 96375; 96376; 99285; J0690; A9270; G0378; J0330; J1100; J1171; J2003; J2250; J2270; J2405; J2704; J3010; J7030; J7120

== ENCOUNTER 2025-09-08 18:11 | Observation (INO) | payer MEDICARE, SELFPAY ==
--- NOTE | ~2025-09-08 | XR_ITS ---
EXAMINATION: XR retrograde pyelo w/stent LT DATE: 09/09/2025 11:46 INDICATION: Left-sided ureteral stone TECHNIQUE: 4 fluoroscopic images of the abdomen and pelvis were obtained during procedure performed by Dr. Davis. Radiologist was not present for the imaging or procedure. The amount of fluoroscopy time used during this procedure was 0.5 minutes. Total DAP was 0.289 mGym^2. COMPARISON: CT dated 09/08/2025 FINDINGS: Images demonstrate cannulation and retrograde contrast injection into the left ureter. There are couple lucent filling defects in the mid to distal ureter which could represent which could represent the previous noted ureteral stones or injected gas bubbles. There is mild hydronephrosis at the left kidney. Final images demonstrate placement of a left intraureteral stent with proximal loop in the left renal pelvis. IMPRESSION: 1. A couple small lucent filling defects in the mid to distal left ureter and contrast injection which could represent injected gas bubbles or ureteral stones. See procedure note for further detail. 2. Placement of a left intraureteral stent with proximal loop in expected position at the left renal pelvis. Reviewed, dictated and finalized at location A. IMPRESSION: 1. A couple small lucent filling defects in the mid to distal left ureter and c ontrast injection which could represent injected gas bubbles or ureteral stones . See procedure note for further detail. 2. Placement of a left intraureteral stent with proximal loop in expected posit ion at the left renal pelvis.
--- NOTE | ~2025-09-08 | CT_ITS ---
EXAMINATION: CT abdomen pelvis wo con DATE: 09/08/2025 20:12 INDICATION: Left flank pain. TECHNIQUE: Computed tomography (CT) of the abdomen and pelvis was performed without intravenous contrast. Automated exposure control and iterative reconstruction technique were employed. The dose-length product was 176.76 mGy-cm. COMPARISON: CT abdomen and pelvis 09/05/2025 FINDINGS: The visualized portions of the lung bases demonstrate mild atelectasis. No pleural effusion. The heart size is normal. No pericardial effusion. There is a small sliding hiatal hernia. Calcifications in the liver and spleen are consistent with old granulomatous disease. There are changes of cholecystectomy. The pancreas and adrenal glands are normal. There is a 1.9 cm cyst in right kidney. There is a 2 mm stone in left kidney. There is mild left hydronephrosis and proximal hydroureter. There is a 5 mm stone in distal left ureter. There are no dilated loops of bowel. The appendix is normal. There are no pathologically enlarged lymph nodes. There is trace pelvic ascites. There is severe lower lumbar spondylosis. IMPRESSION: 1. 5 mm stone in distal left ureter with mild left hydronephrosis and proximal hydroureter. 2. 2 mm nonobstructing left kidney stone. 3. Small sliding hiatal hernia. Reviewed, dictated and finalized at location E.
--- OUTSIDE RECORDS SUMMARY | 2025-09-08 18:13 | XMS_ITS | Clinical Summary ---
Author Organization [facility] Address [address] [place] [address] Care Team Providers Care Relief Cook Name Role Phone Junie Garcia RN, Anne C DO Primary Care Provider [phone] Source Comments [facility],non-owned Affiliates and Associated Physician Practices is amultiple site organization consisting of ambulatory clinics and hospital sitesin [place], [place], [place] and [place]. This disclosure is being madepursuant to the Care Everywhere program and may not contain all information available regarding this patient. Last updated 18.[facility] Allergies Active Allergy Reactions Criticality Noted Date [...] Comments Blood Pressure 111/70 11/21/2019 12:50 PM TRIAGE LICENSED PRACTICAL NURSE Pulse 60 11/21/2019 12:50 PM TRIAGE LICENSED PRACTICAL NURSE Temperature 36.3 C (97.3 F) 11/21/2019 12:50 PM TRIAGE LICENSED PRACTICAL NURSE Respiratory Rate 20 11/21/2019 12:50 PM TRIAGE LICENSED PRACTICAL NURSE Oxygen Saturation 99% 11/21/2019 12:50 PM TRIAGE LICENSED PRACTICAL NURSE Inhaled Oxygen Concentration - - Weight 75.8 kg (167 lb) 11/21/2019 12:50 PM TRIAGE LICENSED PRACTICAL NURSE Height 177.8 cm (5' 10) 11/21/2019 12:50 PM TRIAGE LICENSED PRACTICAL NURSE Body Mass Index 23.96 11/21/2019 12:50 PM TRIAGE LICENSED PRACTICAL NURSE Plan of Treatment Health Maintenance Due Date [...] Patient-Stated? Author Depression Lifestyle No Tianna Agustin, CRITICAL CARE EDUCATOR-NEEDLE BOARD REPAIRER Medical Devices Implanted Type Area Domestic Violence Advocate Device Identifier Shelf Expiration Date Model / Serial / Lot Graft Tissue Drgn + Bvn Clgn Mtrx 2x2in Implanted:Qty: 1 on 06/28/2019 by Hugh Ceja MD at [facility] [employer] 02/11/2022 [id number] / / [id number] Procedures Procedure Name Priority Date/Time Associated Diagnosis Comments LIPID PROFILE Routine 10/26/2018 11:14 AM TRIAGE LICENSED PRACTICAL NURSE H/O stroke without residual deficits from Last 3 Months or Most Recently Relevant to Health Maintenance Results * LIPID PROFILE (10/26/2018 11:14 AM TRIAGE LICENSED PRACTICAL NURSE) Cholesterol Total 162 <200 mg/dL 10/26/2018 12:12 PM [facility] HDL 49 >40 mg/dL 10/26/2018 12:12 PM [facility] Comment: ATP III Classification of HDL Cholesterol: <40 mg/dL: Considered a major risk factor. >60 mg/dL: Considered a negative risk factor. LDL Calculated 98 <100 mg/dL 10/26/2018 12:12 PM [facility] Comment: ATP III Classification of LDL Cholesterol: <100 mg/dL: Optimal 100 - 129 mg/dL: Near Optimal/Above Optimal 130 - 159 mg/dL: Borderline High 160 - 189 mg/dL: High >190 mg/dL: Very High Triglycerides 73 <150 mg/dL 10/26/2018 12:12 PM [facility] Comment: ATP III Classification of Triglycerides: <150 mg/dL: Normal 150 - 199 mg/dL: Borderline High 200 - 400 mg/dL: High >500 mg/dL: Very High Blood BLOOD SPECIMEN / Unknown Lab Venipuncture / Unknown 10/26/2018 11:14 AM TRIAGE LICENSED PRACTICAL NURSE 10/26/2018 11:18 AM TRIAGE LICENSED PRACTICAL NURSE Christy Rivera CRITICAL CARE EDUCATOR-NEEDLE BOARD REPAIRER LAB - CHEMISTRY ORDERABL ES Final Result [address] [phone] from Last 3 Months or Most Recently Relevant to Health Maintenance [place] [address] MEDICARE MEDICARE * Guarantor: OSMEL DALY Account Type Relation to Patient Date of Phone Billing Address Personal/Family 1965 [place] Advance Directives * Full Code (Latest Code Status on File) Date Activated Date Inactivated Comments 06/28/2019 7:57 PM 07/02/2019 4:56 PM * Full Code Date Activated Date Inactivated Comments 09/26/2017 12:45 PM 09/27/2017 1:07 PM Care Teams Relief Cook Relationship Specialty Start Date End Date Debora Ding DO [address] [place] [address] PCP - General 12/04/18 Junie Garcia, RN 09/26/17
--- OUTSIDE RECORDS SUMMARY | 2025-09-08 18:13 | XMS_ITS | Encounter Summary ---
Author Organization [facility] Address [address] [place], [place] [address] [address] Care Team Providers Care Piano Case And Bench Assembler Name Role Phone Juine Garcia RN, Anne C DO Primary Care Provider [phone] Reason for Visit * Reason Onset Date Comments Consent 03/10/2020 Encounter Details Date Type Department Care Team (Late st Contact Info) Description 03/10/2020 Telephone [facility] [address] [place] [address] Nichole Patrick MD No information available Consent [...] Author No 06/28/2019 9:53 PM CDT Precious Rael RN documented as of this encounter Mental [...] Patient-Stated? Author Depression Lifestyle No Tianna Agustin, DIRECTOR PACKAGING-OUTBOUND SALES AGENT documented as of this encounter Visit Diagnoses Not on filedocumented in this encounter Care Teams Piano Case And Bench Assembler Relationship Specialty Start Date End Date Debora Ding DO [address] [place] [address] PCP - General 12/04/18 Junie Garcia, RN 09/26/17 documented as of this encounter
--- OUTSIDE RECORDS SUMMARY | 2025-09-08 18:13 | XMS_ITS | Clinical Summary ---
Author Organization [facility] [address] [facility] Address [address] [place] [address] Care Team Providers Care Emulsion Coater Name Role Phone Unavailable Primary Care Provider [...] 8mm 08/11/20 21 Overview (08/11/2021): CT at [place] on 05/07/2021 IMPRESSION: 1. Duodenitis 2. 6 mm pulmonary nodule, probably benign. Noncontrast LDCT recommended in 6 months. Assessment & Plan (08/11/2021 11:52 AM CDT): CT at [place] on 05/07/2021 IMPRESSION: 1. Duodenitis 2. 6 [...] I also provided him with information regardi [facility] financial assistance for him to investigate also. [...] (07/12/2021): Surgical resection 11/2019 Dr. Ceja at [facility] Assessment & Plan (08/08/2021 11:19 AM CDT): Stressed importance of followup with Dr. Ceja. He voices understanding but is limited by finances. Assessment & Plan (07/12/2021 5:56 PM CDT): Surgical resection 11/2019 Dr. Ceja at [facility] Encouraged to followup as instructed by Dr. [...] Reviewed options for assistance with cessation. Reviewed superintendent terminal sequela associated with smoking. Pt declines assistance at this time but may contact the office at anytime for further help as they desire. He declines LDCT Assessment & Plan (07/12/2021 6:01 PM CDT): Encouraged smoking cessation. Discussed 3 minutes. Reviewed options for assistance with cessation. Reviewed detention sequela associated with smoking. Pt declines assistance [...] /closer to home annually. 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
[2025-09-08 18:14] VITALS: BP 146/82; PULSE 89; RESP 20; TEMP 37.2; O2SAT 98
[2025-09-08 18:46] LABS: Hematocrit 41.4 % (42.0-52.0); Hemoglobin 13.9 g/dL (14.0-18.0); Immature Granulocyte Percent A 0.3 % (0-0.5); Lymphocytes Absolute Auto 1.57 K/mm3 (0.9-3.2); Mean Corpuscular HGB Conc 33.6 g/dl (32-36); Mean Corpuscular Hemoglobin 28.0 pg (26-34); Mean Corpuscular Volume 83.3 fl (80-100); Nucleated Red Blood Cells Absolute Auto 0.000 K/mm3 (0.0-0.012); Nucleated Red Blood Cells Perc 0.0 % (0.0-0.2); Platelet Count Result 226 k/mm3 (150-375); Red Blood Count 4.97 M/mm3 (4.6-6.20); White Blood Count 12.0 K/mm3 (4.5-10.0)
[2025-09-08 18:58] LABS: Alanine Aminotransferase 36 U/L (6-50); Albumin Level 4.2 g/dL (3.5-5.1); Alkaline Phosphatase 55 U/L (38-126); Anion Gap 9 mmol/L (4-12); Aspartate Amino Transferase 68 U/L (17-59); Bilirubin,Total 1.0 mg/dL (0.2-1.3); Blood Urea Nitrogen 17 mg/dL (9-20); Calcium 9.0 mg/dL (8.4-10.2); Carbon Dioxide 20 mmol/L (22-30); Chloride 106 mmol/L (98-107); Estimated CRCL calculation 44 ml/min; Estimated Glomerular Filt Rate 44; Glucose 117 mg/dL (65-110); Potassium 3.4 mmol/L (3.4-5.0); Sodium 135 mmol/L (137-145); Total Protein 7.6 g/dL (6.3-8.2)
--- OUTSIDE RECORDS SUMMARY | 2025-09-08 18:58 | XMS_ITS | Clinical Summary ---
Author Organization [facility] [address] [facility] Address [address] [place] [address] Care Team Providers Care Belt Knife Feeder Name Role Phone Unavailable Primary Care Provider [...] 8mm 08/11/20 21 Overview (08/11/2021): CT at [place] on 05/07/2021 IMPRESSION: 1. Duodenitis 2. 6 mm pulmonary nodule, probably benign. Noncontrast LDCT recommended in 6 months. Assessment & Plan (08/11/2021 11:52 AM CDT): CT at [place] on 05/07/2021 IMPRESSION: 1. Duodenitis 2. 6 [...] I also provided him with information regardi [facility] financial assistance for him to investigate also. [...] (07/12/2021): Surgical resection 11/2019 Dr. Ceja at [facility] Assessment & Plan (08/08/2021 11:19 AM CDT): Stressed importance of followup with Dr. Ceja. He voices understanding but is limited by finances. Assessment & Plan (07/12/2021 5:56 PM CDT): Surgical resection 11/2019 Dr. Ceja at [facility] Encouraged to followup as instructed by [...] Reviewed options for assistance with cessation. Reviewed long wall shear operator sequela associated with smoking. Pt declines assistance at this time but may contact the office at anytime for further help as they desire. He declines LDCT Assessment & Plan (07/12/2021 6:01 PM CDT): Encouraged smoking cessation. Discussed 3 minutes. Reviewed options for assistance with cessation. Reviewed half-way sequela associated with smoking. Pt declines assistance [...] home annually. 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
--- OUTSIDE RECORDS SUMMARY | 2025-09-08 18:58 | XMS_ITS | Clinical Summary ---
Author Organization [facility] Address [address] [place] [address] Care Team Providers Care Turkey Picker Name Role Phone Junie Garcia RN, Anne C DO Primary Care Provider [phone] Source Comments [facility],non-owned Affiliates and Associated Physician Practices is amultiple site organization consisting of ambulatory clinics and hospital sitesin [place], [place], [place] and [place]. This disclosure is being madepursuant to the Care Everywhere program and may not contain all information available regarding this patient. Last updated 18.[facility] Allergies Active Allergy Reactions Criticality Noted Date [...] Comments Blood Pressure 111/70 11/21/2019 12:50 PM FILM INSPECTOR Pulse 60 11/21/2019 12:50 PM FILM INSPECTOR Temperature 36.3 C (97.3 F) 11/21/2019 12:50 PM FILM INSPECTOR Respiratory Rate 20 11/21/2019 12:50 PM FILM INSPECTOR Oxygen Saturation 99% 11/21/2019 12:50 PM FILM INSPECTOR Inhaled Oxygen Concentration - - Weight 75.8 kg (167 lb) 11/21/2019 12:50 PM FILM INSPECTOR Height 177.8 cm (5' 10) 11/21/2019 12:50 PM FILM INSPECTOR Body Mass Index 23.96 11/21/2019 12:50 PM FILM INSPECTOR Plan of Treatment Health Maintenance Due Date [...] Patient-Stated? Author Depression Lifestyle No Tianna Agustin, [employer] REPA[employer]ER Medical Devices Implanted Type Area Sign Language Translator Device Identifier Shelf Expiration Date Model / Serial / Lot Graft Tissue Drgn + Bvn Clgn Mtrx 2x2in Implanted:Qty: 1 on 06/28/2019 by Hugh Ceja MD at [facility]iences 02/11/2022 [id number] / / [id number] Procedures Procedure Name Priority Date/Time Associated Diagnosis Comments LIPID PROFILE Routine 10/26/2018 11:14 AM FILM INSPECTOR H/O stroke without residual deficits from Last 3 Months or Most Recently Relevant to Health Maintenance Results * LIPID PROFILE (10/26/2018 11:14 AM FILM INSPECTOR) Cholesterol Total 162 <200 mg/dL 10/26/2018 12:12 PM [facility] HDL 49 >40 mg/dL 10/26/2018 12:12 PM [facility] Comment: ATP III Classification of HDL Cholesterol: <40 mg/dL: Considered a major risk factor. >60 mg/dL: Considered a negative risk factor. LDL Calculated 98 <100 mg/dL 10/26/2018 12:12 PM [facility] Comment: ATP III Classification of LDL Cholesterol: <100 mg/dL: Optimal 100 - 129 mg/dL: Near Optimal/Above Optimal 130 - 159 mg/dL: Borderline High 160 - 189 mg/dL: High >190 mg/dL: Very High Triglycerides 73 <150 mg/dL 10/26/2018 12:12 PM [facility] Comment: ATP III Classification of Triglycerides: <150 mg/dL: Normal 150 - 199 mg/dL: Borderline High 200 - 400 mg/dL: High >500 mg/dL: Very High Blood BLOOD SPECIMEN / Unknown Lab Venipuncture / Unknown 10/26/2018 11:14 AM FILM INSPECTOR 10/26/2018 11:18 AM FILM INSPECTOR Christy Rivera [employer] REPAIRER LAB - CHEMISTRY ORDERABL ES Final Result [address] [phone] from Last 3 Months or Most Recently Relevant to Health Maintenance [place] [address] MEDICARE MEDICARE * Guarantor: OSMEL DALY Account Type Relation to Patient Date of Phone Billing Address Personal/Family 1965 [place] Advance Directives * Full Code (Latest Code Status on File) Date Activated Date Inactivated Comments 06/28/2019 7:57 PM 07/02/2019 4:56 PM * Full Code Date Activated Date Inactivated Comments 09/26/2017 12:45 PM 09/27/2017 1:07 PM Care Teams Turkey Picker Relationship Specialty Start Date End Date Debora Ding DO [address] [place] [address] PCP - General 12/04/18 Junie Garcia, RN 09/26/17
--- OUTSIDE RECORDS SUMMARY | 2025-09-08 18:58 | XMS_ITS | Encounter Summary ---
Author Organization [facility] Address [address] [place], [place] [address] [address] Care Team Providers Care Back Padder Name Role Phone Junie Garcia RN, Anne C DO Primary Care Provider [phone] Reason for Visit * Reason Onset Date Comments Consent 03/10/2020 Encounter Details Date Type Department Care Team (Late st Contact Info) Description 03/10/2020 Telephone [facility] [address] [place] [address] Nichole Patrick MD No information available Consent [...] Patient-Stated? Author Depression Lifestyle No Tianna Agustin, PACKING MACHINE CAN FEEDER-DEAN [employer] documented as of this encounter Visit Diagnoses Not on filedocumented in this encounter Care Teams Back Padder Relationship Specialty Start Date End Date Debora Ding DO [address] [place] [address] PCP - General 12/04/18 Junie Garcia, RN 09/26/17 documented as of this encounter
--- NOTE | 2025-09-08 19:17 | PC.NURSE ---
Report received from DONI Crowley. Assumed care of patient at this time.
[2025-09-08 19:21] LABS: Add Urine Microscopic? YES; Appearance Urine Cloudy (Clear); Glucose Urine UA Negative (Negative); Leukocyte Esterase Ur Trace LEU/UL (Negative); Nitrate Urine Negative (Negative); Non Pathogenic Casts 0-2; Specific Grav Ur 1.013 (1.001-1.035)
[2025-09-08] MEDS: SODIUM CHLORIDE 0.9% IV 1,000 ML 999 ML IV CONT ×2 (19:43)
[2025-09-08] MEDS: ONDANSETRON INJ 4 MG/2 ML VIAL IV PUSH ×3 (19:43→23:46)
[2025-09-08] MEDS: HYDROmorphone HCL INJ (*CRX) 1 MG/ML SYR 0.5 MG IV PUSH (19:43)
[2025-09-08 19:50] VITALS: BP 118/82; PULSE 57; RESP 16; TEMP 36.9; O2SAT 99
--- NOTE | 2025-09-08 19:50 | ED.GENADULT ---
HPI - General Adult General Chief complaint: Recheck/Abnormal Lab/Rx <EKATERINA Silveira Last Filed: 09/08/25 22:31> Stated complaint: fever post lithotripsy <EKATERINA Silveira Last Filed: 09/08/25 22:31> Time Seen by Provider: 09/08/25 18:20 <Liana Johansen PA-C - Last Filed: 09/08/25 22:31> Source: patient and old records reviewed <EKATERINA Silveira Last Filed: 09/08/25 22:31> Mode of arrival: ambulatory <EKATERINA Silveira Last Filed: 09/08/25 22:31> Limitations: no limitations <EKATERINA Silveira Last Filed: 09/08/25 22:31> History of Present Illness HPI narrative: Patient is a 60-year-old male who presents the ED with report of left-sided abdominal and flank pain. Patient reports long history of kidney stones. Was admitted to the hospital last week for 7 mm left-sided ureteral stone. Underwent left-sided ESWL with Dr. Enamorado on Tuesday. Was discharged home afterwards. States today he developed more severe pain in his left sided upper and lower abdomen, left flank region. Developed nausea and vomiting. Also reported having a fever up to 101.4 degree F today. Reports some difficulty urinating. Denies hematuria. Does report constipation, states he has not had a bowel movement since Tuesday. <EKATERINA Silveira Last Filed: 09/08/25 22:31> Related Data Home medications: Home Medications ?Medication ?Instructions ?Recorded ?Confirmed ?Last Taken ?Type acetaminophen 500 mg tablet 1,000 mg PO Q4-6H PRN pain 09/05/25 09/08/25 Unknown History ibuprofen 200 mg capsule 400 mg PO Q6H PRN pain 09/05/25 09/08/25 Unknown History <EKATERINA Silveira Last Filed: 09/08/25 22:31> Allergies/adverse reactions: Allergies Allergy/AdvReac Type Severity Reaction Status Date / Time tramadol Allergy Severe Gastrointestinal Verified 09/08/25 23:23 Upset NSAIDS (Non-Steroidal AdvReac Mild STOMACH Verified 09/08/25 23:23 Anti-Inflamma UPSET <Liana Johansen PA-C - Last Filed: 09/08/25 22:31> Review of Systems Review of Systems: All systems reviewed & are unremarkable except as noted in HPI. <Liana Johansen PA-C - Last Filed: 09/08/25 22:31> All systems reviewed & are unremarkable except as noted in HPI and below <Liana Johansen PA-C - Last Filed: 09/08/25 22:31> [facility] Past Medical History Medical History: Medical History Alopecia universalis Kidney stones Spinal stenosis Duodenitis GERD (gastroesophageal reflux disease) H/O: CVA (cerebrovascular accident) 2/2 pituitary tumor Patient denies significant medical history <Liana Johansen PA-C - Last Filed: 09/08/25 22:31> Surgical History Surgical History: Surgical History H/O brain surgery 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 History of left heart catheterization <Liana Johansen PA-C - Last Filed: 09/08/25 22:31> Family History Family History: Family History Mother Family history of diabetes mellitus in first degree relative Ovarian cancer Breast cancer <Liana Johansen PA-C - Last Filed: 09/08/25 22:31> Social History Social History: Social History Smoking packs per day: 0.5 Smoking cigarettes per day: 10.0 Years smoked: 40 Smoking pack-years: 20.00 Smoking status: Current every day smoker Tobacco type: cigarettes Alcohol intake: current Substance use: current Substance use type: marijuana Other substance usage details: MEDICAL CARD Lack of Transportation: No Lack of Food: Sometimes True Current Housing: I Have Housing Concerned About Future Housing: No Difficulty Paying Gas/Electric Bills: No Difficulty Paying for Meds: YES Currently Unemployed: No Education: High School Diploma/GED Difficulty w/ Childcare or Family Care: No Living arrangements: with family Spiritual care concerns: No <Liana Johansen PA-C - Last Filed: 09/08/25 22:31> Exam Narrative: GENERAL: Uncomfortable appearing, well-nourished, non-toxic, in moderate acute distress d/t pain. HEAD: Normocephalic, atraumatic. RESPIRATORY: Airway patent, respirations nonlabored. Clear to auscultation bilaterally, no rales, rhonchi, wheezing. CARDIOVASCULAR: Regular rate and rhythm without murmurs, rubs, or gallops. ABDOMINAL: Soft, moderate tenderness L upper/lower abdomen/L flank, nondistended. Normoactive BS. MUSCULOSKELETAL: Moves all extremities. No gross deformities. SKIN: Warm, dry, normal color. Diffuse alopecia NEURO: A&O X3. Speech clear. Cranial nerves II-XII grossly intact. Steady gait. No ataxic movements. PSYCHIATRIC: Appropriate mood and affect. Normal interaction. <Liana Johansen PA-C - Last Filed: 09/08/25 22:31> Course [employer]NT MARINE/PA Physician Supervision This visit was performed by both a physician and an APC. I performed all aspects of the MDM as documented. <Ady Parry MD - Last Filed: 09/09/25 00:08> Vital Signs Vital signs: Vital Signs Temperature 98.9 F 09/08/25 18:14 Pulse Rate 89 09/08/25 18:14 Respiratory Rate 20 09/08/25 18:14 Blood Pressure 146/82 H 09/08/25 18:14 Pulse Oximetry 98 09/08/25 18:14 Temperature 98.3 F 09/08/25 23:39 Pulse Rate 60 09/08/25 23:39 Respiratory Rate 18 09/08/25 23:39 Blood Pressure 122/42 L 09/08/25 23:39 Pulse Oximetry 100 09/08/25 23:39 Oxygen Delivery Room Air 09/08/25 23:40 <Liana Johansen PA-C - Last Filed: 09/08/25 22:31> Vital Signs Temperature 98.9 F 09/08/25 18:14 Pulse Rate 89 09/08/25 18:14 Respiratory Rate 20 09/08/25 18:14 Blood Pressure 146/82 H 09/08/25 18:14 Pulse Oximetry 98 09/08/25 18:14 Temperature 98.3 F 09/08/25 23:39 Pulse Rate 60 09/08/25 23:39 Respiratory Rate 18 09/08/25 23:39 Blood Pressure 122/42 L 09/08/25 23:39 Pulse Oximetry 100 09/08/25 23:39 Oxygen Delivery Room Air 09/08/25 23:40 <Ady Parry MD - Last Filed: 09/09/25 00:08> Medical Decision Making MDM Narrative Medical decision making narrative: Patient presented to ED with left-sided abdominal pain, nausea, vomiting, fever today. Long history of kidney stones. Lithotripsy performed on Tuesday for 7mm left ureteral stone. Patient is afebrile here but did report fever at home today. Vital signs are otherwise stable. Patient is uncomfortable appearing w/ acute pain. CBC with white blood cell count of 12.0. CMP with bicarb at 20, normal anion gap. Creatinine 1.6. Consistent with mild MANN. Baseline creatinine per records around 1. Given fluids. Lactic acid within normal range at 1.8. UA with 3+ blood, trace leuk esterase, greater than 100 RBC. No significant signs of infection. Blood cultures were obtained. CT scan of abdomen/pelvis was obtained and showing left-sided hydroureteronephrosis secondary to a 4 mm distal ureteral stone still passing. Discussed case with Dr. Chao, urology, recommended admission for possible ureteral stent placement tomorrow given worsening pain, fevers, MANN. Additionally, patient has required multiple doses of IV pain medication for pain control. Agrees with plan for dose of Rocephin given presence of fever. Discussed case with Dr. Aldrich, hospitalist, accepted patient for admission. Patient in agreement with plan and need for admission. <Liana Johansen PA-C - Last Filed: 09/08/25 22:31> Patient presented to ED with left-sided abdominal pain, nausea, vomiting, fever today. Long history of kidney stones. Lithotripsy performed on Tuesday for 7mm left ureteral stone. Patient is afebrile here but did report fever at home today. Vital signs are otherwise stable. Patient is uncomfortable appearing w/ acute pain. CBC with white blood cell count of 12.0. CMP with bicarb at 20, normal anion gap. Creatinine 1.6. Consistent with mild MANN. Baseline creatinine per records around 1. Given fluids. Lactic acid within normal range at 1.8. UA with 3+ blood, trace leuk esterase, greater than 100 RBC. No significant signs of infection. Blood cultures were obtained. CT scan of abdomen/pelvis was obtained and showing left-sided hydroureteronephrosis secondary to a 4 mm distal ureteral stone still passing. Discussed case with Dr. Chao, urology, recommended admission for possible ureteral stent placement tomorrow given worsening pain, fevers, MANN. Additionally, patient has required multiple doses of IV pain medication for pain control. Agrees with plan for dose of Rocephin given presence of fever. Discussed case with Dr. Aldrich, hospitalist, accepted patient for admission. Patient in agreement with plan and need for admission. This visit was performed by both a physician and an APC. I performed all aspects of the MDM as documented. <Ady Parry MD - Last Filed: 09/09/25 00:08> Differential Diagnosis Differential Diagnosis: UTI, ureterolithiasis, postop complication, small-bowel obstruction <Ady Parry MD - Last Filed: 09/09/25 00:08> Medical Records Medical records reviewed: Yes I reviewed the external patient's medical records. <Liana Johansen PA-C - Last Filed: 09/08/25 22:31> Vital Signs Vital Signs: Vital Signs Temperature 98.9 F 09/08/25 18:14 Pulse Rate 89 09/08/25 18:14 Respiratory Rate 20 09/08/25 18:14 Blood Pressure 146/82 H 09/08/25 18:14 Pulse Oximetry 98 09/08/25 18:14 Temperature 98.3 F 09/08/25 23:39 Pulse Rate 60 09/08/25 23:39 Respiratory Rate 18 09/08/25 23:39 Blood Pressure 122/42 L 09/08/25 23:39 Pulse Oximetry 100 09/08/25 23:39 Oxygen Delivery Room Air 09/08/25 23:40 <Liana Johansen PA-C - Last Filed: 09/08/25 22:31> Vital Signs Temperature 98.9 F 09/08/25 18:14 Pulse Rate 89 09/08/25 18:14 Respiratory Rate 20 09/08/25 18:14 Blood Pressure 146/82 H 09/08/25 18:14 Pulse Oximetry 98 09/08/25 18:14 Temperature 98.3 F 09/08/25 23:39 Pulse Rate 60 09/08/25 23:39 Respiratory Rate 18 09/08/25 23:39 Blood Pressure 122/42 L 09/08/25 23:39 Pulse Oximetry 100 09/08/25 23:39 Oxygen Delivery Room Air 09/08/25 23:40 <Ady Parry MD - Last Filed: 09/09/25 00:08> Lab Data Lab results reviewed: Yes I reviewed the patient's lab results. <Liana Johansen PA-C - Last Filed: 09/08/25 22:31> Result diagrams: 09/08/25 18:36 09/08/25 18:36 <Liana Johansen PA-C - Last Filed: 09/08/25 22:31> Labs: Lab Results 09/08/25 09/08/25 Range/Units 18:36 19:13 WBC 12.0 H (4.5-10.0) K/mm3 RBC 4.97 (4.6-6.20) M/mm3 Hgb 13.9 L (14.0-18.0) g/dL Hct 41.4 L (42.0-52.0) % MCV 83.3 (80-100) fl MCH 28.0 (26-34) pg MCHC 33.6 (32-36) g/dl RDW 13.0 (11.5-14.5) % Plt Count 226 (150-375) k/mm3 MPV 9.8 (7.4-10.4) fl Immature Gran % (Auto) 0.3 (0-0.5) % Neut % (Auto) 75.0 H (45.5-73.1) % Lymph % (Auto) 13.1 L (18.3-44.2) % [place] % (Auto) 10.6 H (2.6-8.5) % Eos % (Auto) 0.7 (0-4.4) % Baso % (Auto) 0.3 (0.2-1.2) % Lymph # (Auto) 1.57 (0.9-3.2) K/mm3 [place] # (Auto) 1.3 H (0.1-0.6) K/mm3 Eos # (Auto) 0.1 (0-0.3) K/mm3 Baso # (Auto) 0.0 (0.0-0.1) K/mm3 Abs Immat Gran (auto) 0.04 H (0.00-0.031) K/mm3 Absolute Neuts (auto) 9.0 H (1.3-6.7) K/mm3 Absolute Nucleated RBC 0.000 (0.0-0.012) K/mm3 Nucleated RBC % 0.0 (0.0-0.2) % Sodium 135 L (137-145) mmol/L Potassium 3.4 (3.4-5.0) mmol/L Chloride 106 (98-107) mmol/L Carbon Dioxide 20 L (22-30) mmol/L Anion Gap 9 (4-12) mmol/L BUN 17 (9-20) mg/dL Creatinine 1.60 H (0.7-1.3) mg/dL Estim Creat Clear Calc 44 ml/min Estimated GFR 44 L (59 - ) Glucose 117 H (65-110) mg/dL Lactic Acid 1.8 (0.7-2.0) mmol/L Calcium 9.0 (8.4-10.2) mg/dL Total Bilirubin 1.0 (0.2-1.3) mg/dL AST 68 H (17-59) U/L ALT 36 (6-50) U/L Alkaline Phosphatase 55 (38-126) U/L Total Protein 7.6 (6.3-8.2) g/dL Albumin 4.2 (3.5-5.1) g/dL Urine Color Yellow (Yellow) Urine Appearance Cloudy H (Clear) Urine pH 5.5 (5.0-9.0) Ur Specific [place] 1.013 (1.001-1.035) Urine Protein Trace (Negative) mg/dL Urine Glucose (UA) Negative (Negative) mg/dL Urine Ketones Negative (Negative) mg/dL Ur Blood (Man) 3+ H (Negative) Urine Nitrate Negative (Negative) Urine Bilirubin Negative (Negative) Urine Urobilinogen 1.0 (<2.0) mg/dL Leukocyte Esterase Rfl Trace H (Negative) RAMESH/UL Urine RBC >100 H (0-2) /hpf Urine WBC 0-5 (0-3) /hpf Ur Squamous Epith Cells None seen (Few) /hpf Urine Bacteria None seen /hpf Urine Casts 0-2 <Liana Johansen PA-C - Last Filed: 09/08/25 22:31> Lab Results 09/08/25 09/08/25 Range/Units 18:36 19:13 WBC 12.0 H (4.5-10.0) K/mm3 RBC 4.97 (4.6-6.20) M/mm3 Hgb 13.9 L (14.0-18.0) g/dL Hct 41.4 L (42.0-52.0) % MCV 83.3 (80-100) fl MCH 28.0 (26-34) pg MCHC 33.6 (32-36) g/dl RDW 13.0 (11.5-14.5) % Plt Count 226 (150-375) k/mm3 MPV 9.8 (7.4-10.4) fl Immature Gran % (Auto) 0.3 (0-0.5) % Neut % (Auto) 75.0 H (45.5-73.1) % Lymph % (Auto) 13.1 L (18.3-44.2) % [place] % (Auto) 10.6 H (2.6-8.5) % Eos % (Auto) 0.7 (0-4.4) % Baso % (Auto) 0.3 (0.2-1.2) % Lymph # (Auto) 1.57 (0.9-3.2) K/mm3 [place] # (Auto) 1.3 H (0.1-0.6) K/mm3 Eos # (Auto) 0.1 (0-0.3) K/mm3 Baso # (Auto) 0.0 (0.0-0.1) K/mm3 Abs Immat Gran (auto) 0.04 H (0.00-0.031) K/mm3 Absolute Neuts (auto) 9.0 H (1.3-6.7) K/mm3 Absolute Nucleated RBC 0.000 (0.0-0.012) K/mm3 Nucleated RBC % 0.0 (0.0-0.2) % Sodium 135 L (137-145) mmol/L Potassium 3.4 (3.4-5.0) mmol/L Chloride 106 (98-107) mmol/L Carbon Dioxide 20 L (22-30) mmol/L Anion Gap 9 (4-12) mmol/L BUN 17 (9-20) mg/dL Creatinine 1.60 H (0.7-1.3) mg/dL Estim Creat Clear Calc 44 ml/min Estimated GFR 44 L (59 - ) Glucose 117 H (65-110) mg/dL Lactic Acid 1.8 (0.7-2.0) mmol/L Calcium 9.0 (8.4-10.2) mg/dL Total Bilirubin 1.0 (0.2-1.3) mg/dL AST 68 H (17-59) U/L ALT 36 (6-50) U/L Alkaline Phosphatase 55 (38-126) U/L Total Protein 7.6 (6.3-8.2) g/dL Albumin 4.2 (3.5-5.1) g/dL Urine Color Yellow (Yellow) Urine Appearance Cloudy H (Clear) Urine pH 5.5 (5.0-9.0) Ur Specific [place] 1.013 (1.001-1.035) Urine Protein Trace (Negative) mg/dL Urine Glucose (UA) Negative (Negative) mg/dL Urine Ketones Negative (Negative) mg/dL Ur Blood (Man) 3+ H (Negative) Urine Nitrate Negative (Negative) Urine Bilirubin Negative (Negative) Urine Urobilinogen 1.0 (<2.0) mg/dL Leukocyte Esterase Rfl Trace H (Negative) RAMESH/UL Urine RBC >100 H (0-2) /hpf Urine WBC 0-5 (0-3) /hpf Ur Squamous Epith Cells None seen (Few) /hpf Urine Bacteria None seen /hpf Urine Casts 0-2 <Ady Parry MD - Last Filed: 09/09/25 00:08> Imaging Data Attestation: I personally reviewed and interpreted this imaging study as follows: <Liana Johansen PA-C - Last Filed: 09/08/25 22:31> Radiologist's impression: STAT RAD CT abd/pelvis: Impression: Mild left hydronephrosis and hydroureter secondary to a 4 mm distal ureteral calculus. The remaining solid organs are within normal limits. Small hiatal hernia. No bowel obstruction. No fracture. No incidental findings. <Liana Johansen PA-C - Last Filed: 09/08/25 22:31> Discharge Plan Discharge Clinical Impression: Calculus of left ureter, MANN (acute kidney injury), History of lithotripsy Fever Qualifiers: Fever type: unspecified Qualified Code(s): R50.9 - Fever, unspecified <EKATERINA Silveira Last Filed: 09/08/25 22:31> Patient Disposition: Still a Patient <EKATERINA Silveira Last Filed: 09/08/25 22:31> Condition: Stable <EKATERINA Silveira Last Filed: 09/08/25 22:31>
[2025-09-08 21:12] VITALS: BP 130/77; PULSE 54; RESP 17; O2SAT 100
[2025-09-08] MEDS: HYDROmorphone HCL INJ (*CRX) 1 MG/ML SYR IV PUSH ×2 (21:42→23:30)
[2025-09-08] MEDS: cefTRIAXone 1 GM in SODIUM CHLORIDE 0.9% IV 50 ML 100 ML IVPB (22:37)
[2025-09-08 23:08] VITALS: BP 119/70; PULSE 50; RESP 17; O2SAT 99
[2025-09-08 23:10] VITALS: BP 119/80; PULSE 50; RESP 17; TEMP 36.8; O2SAT 99
[2025-09-08 23:20] VITALS: BMI 23.8
--- NOTE | 2025-09-08 23:21 | ADMGEN ---
This patient, Osmel Esquivel, was admitted to [facility] Surg Room 314-02. Patient/family oriented to hospital policies and general routines including ID bracelet, bed and alarms, visiting hours, pain management, procedures, bathroom and other care routines, personal items, smoking policy, room service/diet, and visiting hours. Information on how to activate the Rapid Response Team has been discussed. Patient/Family are encouraged to report perceived risks to care and to ask questions if they do not understand what they are told or what they should do.
[2025-09-08] MEDS: SODIUM CHLORIDE 0.9% IV 1,000 ML 100 ML IV CONT (23:33)
[2025-09-08 23:39] VITALS: BP 122/42; PULSE 60; RESP 18; TEMP 36.8; O2SAT 100
[2025-09-09] VITALS (8 sets, daily range): BP systolic 80–139; BP diastolic 56–88; PULSE 54–73; RESP 14–18; TEMP 35.9–37.2; O2SAT 99–100
--- NOTE | 2025-09-09 00:28 | P.HP_ITS ---
H&P: HPI History of Present Illness Date/Time: 09/08/25 23:40 Chief Complaint: Fever, worsening pain from kidney stone Narrative: 51-year-old male with a past medical history of COPD with continued tobacco use, chronic pain, distant history of CVA, resection of a benign pituitary tumor, chronic constipation and multiple kidney stone who presented to the ER with fever and worsening pain from his kidney stone. The patient initially presented to the ER on the due to pain similar to prior kidney stone. He had a CT at that time which demonstrated mild left hydronephrosis with a 5 mm stone in the proximal left ureter. He reports that a few days later he passed that stone. But on the he began having recurrent left lower abdominal pain and flank pain again similar to prior kidney stones and came to the ER on the when his pain was intractable and 9/[address] demonstrated a 7 mm stone in the mid left ureter with mild hydronephrosis. Pain was intractable and he was admitted for pain management and underwent ESWL on the . He reported that he has still been having some light pink tinged urine since the procedure and had been having some mild intermittent pain. But today he developed more severe pain 8/10 in intensity in the left lower abdomen more so with some nausea and vomiting. He checked his temperature and had a T-max of 101.4?. He had been having some associated chills and some increased difficulty with urination. He denied any dysuria. He does have chronic constipation and usually has hard stools. His last bowel movement was Tuesday. He has been having some nausea that is worse when his pain crescendos. She has had a few episodes of emesis of a small amount of clear liquid. Denies any hematemesis. He reports that his pain is sharp and stabbing in nature. He reports that he usually drinks close to 2 pots of coffee a day but recently cut back to 2 cups of coffee a day. He denies any drinking of carbonated beverages. He admits that he does not drink much water because it gives him heartburn. He denies family history kidney stones. Review of Systems 2 Review of Systems: 12 systems were reviewed with pertinent positives and negatives per HPI. Except as documented in the HPI, all other systems were reviewed and are negative. He reports chronic neck and back pain that is stable and unchanged. He denies any difficulty swallowing. He has chronic loss of smell since his pituitary surgery in 2012. [facility] Past Medical History Medical History (Updated 09/09/25 @ 01:29 by Munira Aldrich DO) Cigarette smoker COPD (chronic obstructive pulmonary disease) Herniation of intervertebral disc between L5 and S1 Hiatal hernia Small Benign tumor of pituitary gland (~2012) CVA (cerebral vascular accident) (~2012) Patient states the presented with left-sided weakness and had a CVA was at that time that they found the pituitary tumor Alopecia universalis Kidney stones Multiple Spinal stenosis Cervical spine status post fusion Duodenitis (2020) Due to NSAID use with moderate erosive changes GERD (gastroesophageal reflux disease) Surgical History Surgical History (Updated 09/09/25 @ 01:29 by Munira Aldrich DO) History of hemorrhoidectomy History of fusion of cervical spine (~2012) History of arthroscopy of both knees Status post surgical removal of ganglion cyst (08/2015) Left wrist History of esophagogastroduodenoscopy (EGD) (05/2025) Dr. Monroe History of extracorporeal shockwave lithotripsy (ESWL) Most recent treatment was 09/06/[address] Enamorado Status post selective transsphenoidal pituitary adenomectomy (~2012) History of left heart catheterization (10/2014) Performed by Dr. Faust due to chest pain with risk factors and demonstrated normal coronary arteries Family History Family History (Updated 09/09/25 @ 01:33 by Munira Aldrich DO) Mother Ovarian cancer Breast cancer Renal cell carcinoma Heart disease, Onset Age: 60 Cerebrovascular accident Diabetes mellitus Father Alcoholic cirrhosis Acute myocardial infarction, Onset Age: 60 Sibling Lung cancer Uterine cancer Diabetes mellitus Social History Social History (Updated 09/09/25 @ 01:35 by Munira Aldrich DO) Social History: Patient is and lives alone. 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 He has smoked up to 1.5 packs of cigarettes per day since he was a teenager. He drinks on moderate amount couple of times a year. He smokes marijuana and uses edibles for pain management. He has 2 sons. Code status: Full code Surrogate decision maker: Mother Smoking packs per day: 1 Smoking cigarettes per day: 20.0 Years smoked: 40 Smoking pack-years: 40.00 Smoking status: Current every day smoker Tobacco type: cigarettes Alcohol intake: current Substance use: current Substance use type: marijuana Other substance usage details: MEDICAL CARD Lack of Transportation: No Lack of Food: Sometimes True Current Housing: I Have Housing Concerned About Future Housing: No Difficulty Paying Gas/Electric Bills: No Difficulty Paying for Meds: YES Currently Unemployed: No Education: High School Diploma/GED Difficulty w/ Childcare or Family Care: No Living arrangements: with family Spiritual care concerns: No Meds Home Medications and Allergies Home Medications ?Medication ?Instructions ?Recorded ?Confirmed ?Type tamsulosin 0.4 mg capsule (Flomax) 0.4 mg PO DAILY #7 caps 08/29/25 09/08/25 Rx acetaminophen 500 mg tablet 1,000 mg PO Q4-6H PRN pain 09/05/25 09/08/25 History ibuprofen 200 mg capsule 400 mg PO Q6H PRN pain 09/0509/08/25 History hydrocodone 5 mg-acetaminophen 325 1 - 2 tablet PO Q6H PRN pain #20 09/06/25 09/08/25 Rx mg tablet tabs Allergies Allergy/AdvReac Type Severity Reaction Status Date / Time tramadol Allergy Severe Gastrointestinal Verified 09/08/25 23:23 Upset NSAIDS (Non-Steroidal AdvReac Mild STOMACH Verified 09/08/25 23:23 Anti-Inflamma UPSET Vital Signs Vital Signs - 24 hr 09/08/25 18:14 09/08/25 19:50 09/08/25 21:12 Temperature 98.9 F 98.4 F Pulse Rate 89 57 L 54 L Respiratory Rate 20 16 17 Blood Pressure 146/82 H 118/82 130/77 Pulse Oximetry 98 99 100 Oxygen Delivery 09/08/25 23:08 09/08/25 23:10 09/08/25 23:39 Temperature 98.2 F 98.3 F Pulse Rate 50 L 50 L 60 Respiratory Rate 17 17 18 Blood Pressure 119/70 119/80 122/42 L Pulse Oximetry 99 99 100 Oxygen Delivery 09/08/25 23:40 Temperature Pulse Rate Respiratory Rate Blood Pressure Pulse Oximetry Oxygen Delivery Room Air Exam 2 Narrative: Weight 73 kg BMI 23.8 Const: Other: Well-developed, well-nourished, no acute distress, sitting up in bed, appears stated age HENMT: Other: Head is normocephalic atraumatic, pupils are equal and reactive, no scleral icterus, no conjunctival pallor, mucous membranes are tacky Neck: Other: No lymphadenopathy, no thyromegaly Resp: Other: No tachypnea, no increased work of breathing, high-pitched wheezing that cleared with cough but otherwise decreased breath sounds in lung dai Cardio: Other: Regular rate, regular rhythm, 2+ bilateral radial pedal pulses, no JVD GI: Other: Soft, no reproducible tenderness to palpation, hypoactive bowel sounds, nondistended Back/Spine/Pelvis: Other: No CVA tenderness Skin: Other: Alopecia areata, no pallor, non jaundice Neuro: Other: Alert oriented, speech is clear, no facial asymmetry, no localizing neurologic deficits noted during conversation Extrem: Other: No clubbing, cyanosis or edema Psych: Other: Appropriate mood and affect, pleasant and cooperative, judgment and insight intact H&P: Results Labs Labs: Laboratory Tests 09/08/25 18:36 09/08/25 18:36 09/08/25 09/08/25 18:36 19:13 WBC 12.0 H RBC 4.97 Hgb 13.9 L Hct 41.4 L MCV 83.3 MCH 28.0 MCHC 33.6 RDW 13.0 Plt Count 226 MPV 9.8 Immature Gran % (Auto) 0.3 Neut % (Auto) 75.0 H Lymph % (Auto) 13.1 L [place] % (Auto) 10.6 H Eos % (Auto) 0.7 Baso % (Auto) 0.3 Lymph # (Auto) 1.57 [place] # (Auto) 1.3 H Eos # (Auto) 0.1 Baso # (Auto) 0.0 Abs Immat Gran (auto) 0.04 H Absolute Neuts (auto) 9.0 H Absolute Nucleated RBC 0.000 Nucleated RBC % 0.0 Sodium 135 L Potassium 3.4 Chloride 106 Carbon Dioxide 20 L Anion Gap 9 BUN 17 Creatinine 1.60 H Estim Creat Clear Calc 44 Estimated GFR 44 L Glucose 117 H Lactic Acid 1.8 Calcium 9.0 Total Bilirubin 1.0 AST 68 H ALT 36 Alkaline Phosphatase 55 Total Protein 7.6 Albumin 4.2 Urine Color Yellow Urine Appearance Cloudy H Urine pH 5.5 Ur Specific [place] 1.013 Urine Protein Trace Urine Glucose (UA) Negative Urine Ketones Negative Ur Blood (Man) 3+ H Urine Nitrate Negative Urine Bilirubin Negative Urine Urobilinogen 1.0 Leukocyte Esterase Rfl Trace H Urine RBC >100 H Urine WBC 0-5 Ur Squamous Epith Cells None seen Urine Bacteria None seen Urine Casts 0-2 CT of the abdomen pelvis without contrast demonstrates mild left hydronephrosis and hydroureter secondary to 4 mm distal ureteral stone but otherwise unremarkable per stat read interpretation. Imaging personally reviewed and interpreted. Official radiologic interpretation pending Assessment and Plan Assessment and plan (1) Fever: Qualifiers: Fever type: unspecified Qualified Code(s): R50.9 - Fever, unspecified Code(s): R50.9 - Fever, unspecified Status: Acute (2) Hydronephrosis with ureteral calculus: Code(s): N13.2 - Hydronephrosis with renal and ureteral calculous obstruction Status: Acute (3) History of lithotripsy: Code(s): Z98.890 - Other specified postprocedural states Status: Acute (4) MANN (acute kidney injury): Code(s): N17.9 - Acute kidney failure, unspecified Status: Acute (5) Calculus of left ureter: Code(s): N20.1 - Calculus of ureter Status: Acute (6) Cigarette smoker: Code(s): F17.210 - Nicotine dependence, cigarettes, uncomplicated Status: Acute Plan The patient fever with persistent obstructing distal left ureteral stone list subsequent obstructive hydronephrosis. Given the fever and recent instrumentation there was concern for possible infection the on the obstructing stone. The patient has been started on empiric antibiotic therapy with Rocephin. Urology has been consulted. Patient will be NPO at midnight for anticipated cystoscopy with stent placement. Patient reports improvement in pain with Dilaudid. Patient reports episodes of nausea with pain will provide Zofran as needed. Given possible infection in the setting of fever blood cultures and urine cultures have been obtained and are pending. Will repeat CBC in a.m. will provide Tylenol as needed for fever. Patient does have acute kidney injury likely due to ureteral obstruction. Patient received 2 L normal saline bolus in the ER and will continue IV fluid hydration at 100 mL an hour. Will hold ibuprofen although patient states he has not been taking ibuprofen at home. Will repeat BMP in a.m. and monitor urine output closely. Patient does continuously smoke cigarettes. He is not interested in smoking cessation education at this time. He does not want a nicotine patch. Patient has been admitted as observation status. MEDICAL DECISION MAKING NARRATIVE -Spoke with the ED provider in detail regarding patient's evaluation, workup and management -Patient seen and examined at bedside -Collaborated with patient's nurse at the bedside in detail and addressed all concerns -Labs, electrolytes, radiology, investigations and test results personally reviewed and interpreted unless otherwise specified -ED/Consult/Nursing/Ancilliary notes on the chart reviewed and appreciated -Spoke with patient at bedside and diagnosis and plan of care was discussed. All questions answered. Quality If No VTE Prophylaxis Answer both mechanical and pharmacologic: Reason no mechanical VTE proph: patient/caregiver refusal (Patient is up and ambulating) Reason no pharmacologic proph: medical contraindication active bleeding/bleeding risk Hospitalist MIPS Advance Care Plan I have confirmed that the patient's Advanced Care Plan is present, code status is documented, or surrogate decision maker is listed in patient medical record.: Yes Medication Reconciliation I have utilized all available resources to obtain, update and review the patients current medications (includes all prescriptions, OTC, herbals, cannabis, and nutritional supplements).: Yes
[2025-09-09] MEDS: BISACODYL 5 MG TABLET EC PO (01:00)
[2025-09-09] MEDS: MORPHINE SULFATE (*CRX) 4 MG/ML INJ IV PUSH ×2 (02:04→08:46)
[2025-09-09] MEDS: HYDROmorphone HCL INJ (*CRX) 1 MG/ML SYR IV PUSH (04:16)
[2025-09-09 05:53] LABS: Hematocrit 37.7 % (42.0-52.0); Hemoglobin 12.1 g/dL (14.0-18.0); Mean Corpuscular HGB Conc 32.1 g/dl (32-36); Mean Corpuscular Hemoglobin 27.9 pg (26-34); Mean Corpuscular Volume 86.9 fl (80-100); Platelet Count Result 187 k/mm3 (150-375); Red Blood Count 4.34 M/mm3 (4.6-6.20); White Blood Count 9.2 K/mm3 (4.5-10.0)
[2025-09-09 06:32] LABS: Anion Gap 5 mmol/L (4-12); Blood Urea Nitrogen 15 mg/dL (9-20); Calcium 7.9 mg/dL (8.4-10.2); Carbon Dioxide 23 mmol/L (22-30); Chloride 107 mmol/L (98-107); Estimated CRCL calculation 45 ml/min; Estimated Glomerular Filt Rate 44; Glucose 100 mg/dL (65-110); Potassium 3.7 mmol/L (3.4-5.0); Sodium 135 mmol/L (137-145)
[2025-09-09] MEDS: ONDANSETRON INJ 4 MG/2 ML VIAL IV PUSH (08:46)
--- NOTE | 2025-09-09 09:08 | P.CONUR_ITS ---
Assessment and Plan Assessment and plan (1) Calculus of left ureter: Code(s): N20.1 - Calculus of ureter Status: Acute Assessment and Plan: - 5 mm Left distal ureteral stone - WBC improving to 9.2; creatinine stable at 1.6 - UA with trace leuks, nit negative; urine culture pending - Given pt with significant symptoms and hydro on CT will plan for cysto, Left ureteroscopy, Left ureteral stent placement possibly with Dr. Davis today vs tomorrow morning. Discussed plan with pt as well as risks and benefits of surgery; he voices his understanding and agrees with plan. - Keep pt NPO in anticipation of OR (2) Hydronephrosis with ureteral calculus: Code(s): N13.2 - Hydronephrosis with renal and ureteral calculous obstruction Status: Acute Urology Consult Note HPI Date Seen: 09/09/25 Requesting Physician: Munira Aldrich DO Primary Care Provider: Kash Manzanares, Consult Narrative Narrative: Pt is a 60 year old M with a PMHx of COPD with continued tobacco use, chronic pain, distant history of CVA, resection of a benign pituitary tumor, chronic constipation and multiple kidney stones who is s/p ESWL with Dr. Enamorado (09/06/2025) for 7 mm Left ureteral stone who presented back to the ED last night for acute onset Left flank pain with accompanying fever, nausea, vomiting and difficulty voiding found to have 5 mm Left obstructing distal ureteral stone with upstream hydro for whom urology is consulted for stone management. Pt seen today resting in bed uncomfortably. Continues to report significant Left flank pain, nausea and difficulty voiding. Does state fevers are subjectively improving. No stone seen passed in his urine at this time. Review of Systems 2 Constitutional: Constitutional: Denies chills, Reports fatigue and Reports lethargy ENT: Reports Normal hearing present Cardiovascular: Cardiovascular: Denies chest pain Respiratory: Respiratory: Denies chest congestion, Denies cough and Denies dyspnea Gastrointestinal: Gastrointestinal: Reports abdominal pain, Denies diarrhea, Reports nausea and Reports vomiting Genitourinary: Genitourinary: Denies hematuria, Reports dysuria, Reports flank pain and Denies urinary incontinence Musculoskeletal: Musculoskeletal: Denies myalgias Neurologic: Denies Abnormal speech present and Denies abnormal gait [facility] Past Medical History Medical History (Updated 09/09/25 @ 01:29 by Munira Aldrich DO) Cigarette smoker COPD (chronic obstructive pulmonary disease) Herniation of intervertebral disc between L5 and S1 Hiatal hernia Small Benign tumor of pituitary gland (~2012) CVA (cerebral vascular accident) (~2012) Patient states the presented with left-sided weakness and had a CVA was at that time that they found the pituitary tumor Alopecia universalis Kidney stones Multiple Spinal stenosis Cervical spine status post fusion Duodenitis (2020) Due to NSAID use with moderate erosive changes GERD (gastroesophageal reflux disease) Surgical History Surgical History (Updated 09/09/25 @ 01:29 by Munira Aldrich DO) History of hemorrhoidectomy History of fusion of cervical spine (~2012) History of arthroscopy of both knees Status post surgical removal of ganglion cyst (08/2015) Left wrist History of esophagogastroduodenoscopy (EGD) (05/2025) Dr. Monroe History of extracorporeal shockwave lithotripsy (ESWL) Most recent treatment was 09/06/[address] Enamorado Status post selective transsphenoidal pituitary adenomectomy (~2012) History of left heart catheterization (10/2014) Performed by Dr. Faust due to chest pain with risk factors and demonstrated normal coronary arteries Family History Family History (Updated 09/09/25 @ 01:33 by Munira Aldrich DO) Mother Ovarian cancer Breast cancer Renal cell carcinoma Heart disease, Onset Age: 60 Cerebrovascular accident Diabetes mellitus Father Alcoholic cirrhosis Acute myocardial infarction, Onset Age: 60 Sibling Lung cancer Uterine cancer Diabetes mellitus Social History Social History (Updated 09/09/25 @ 01:35 by Munira Aldrich DO) Social History: Patient is and lives alone. 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 He has smoked up to 1.5 packs of cigarettes per day since he was a teenager. He drinks on moderate amount couple of times a year. He smokes marijuana and uses edibles for pain management. He has 2 sons. Code status: Full code Surrogate decision maker: Mother Smoking packs per day: 1 Smoking cigarettes per day: 20.0 Years smoked: 40 Smoking pack-years: 40.00 Smoking status: Current every day smoker Tobacco type: cigarettes Alcohol intake: current Substance use: current Substance use type: marijuana Other substance usage details: MEDICAL CARD Lack of Transportation: No Lack of Food: Sometimes True Current Housing: I Have Housing Concerned About Future Housing: No Difficulty Paying Gas/Electric Bills: No Difficulty Paying for Meds: YES Currently Unemployed: No Education: High School Diploma/GED Difficulty w/ Childcare or Family Care: No Living arrangements: with family Spiritual care concerns: No Meds Home Medications and Allergies Home Medications ?Medication ?Instructions ?Recorded ?Confirmed ?Type tamsulosin 0.4 mg capsule (Flomax) 0.4 mg PO DAILY #7 caps 08/29/25 09/08/25 Rx acetaminophen 500 mg tablet 1,000 mg PO Q4-6H PRN pain 09/05/25 09/08/25 History ibuprofen 200 mg capsule 400 mg PO Q6H PRN pain 09/0509/08/25 History hydrocodone 5 mg-acetaminophen 325 1 - 2 tablet PO Q6H PRN pain #20 09/06/25 09/08/25 Rx mg tablet tabs Allergies Allergy/AdvReac Type Severity Reaction Status Date / Time tramadol Allergy Severe Gastrointestinal Verified 09/08/25 23:23 Upset NSAIDS (Non-Steroidal AdvReac Mild STOMACH Verified 09/08/25 23:23 Anti-Inflamma UPSET Vital Signs Vital Signs - 24 hr 09/08/25 18:14 09/08/25 19:50 09/08/25 21:12 Temperature 37.2 C 36.9 C Pulse Rate 89 57 L 54 L Respiratory Rate 20 16 17 Blood Pressure 146/82 H 118/82 130/77 Pulse Oximetry 98 99 100 Oxygen Delivery 09/08/25 23:08 09/08/25 23:10 09/08/25 23:39 Temperature 36.8 C 36.8 C Pulse Rate 50 L 50 L 60 Respiratory Rate 17 17 18 Blood Pressure 119/70 119/80 122/42 L Pulse Oximetry 99 99 100 Oxygen Delivery 09/08/25 23:40 09/09/25 05:26 Temperature 37.2 C Pulse Rate 54 L Respiratory Rate 18 Blood Pressure 139/78 Pulse Oximetry 99 Oxygen Delivery Room Air Exam 2 Const: General: no acute distress and uncomfortable Eyes: General: appearance normal, both eyes and all related structures Resp: Effort & Inspection: normal respiratory effort Skin: General skin exam: normal color Neuro: Speech: normal speech Extrem: General: normal to inspection Psych: Speech and movement: Normal speech and movement present Results Labs 09/09/25 05:11 09/09/25 05:11 Labs: Short CBC 09/08/25 09/09/25 Range/Units 18:36 05:11 WBC 12.0 H 9.2 (4.5-10.0) K/mm3 Hgb 13.9 L 12.1 L (14.0-18.0) g/dL Hct 41.4 L 37.7 L (42.0-52.0) % Plt Count 226 187 (150-375) k/mm3 BMP 09/08/25 09/09/25 18:36 05:11 Sodium 135 L 135 L Potassium 3.4 3.7 Chloride 106 107 Carbon Dioxide 20 L 23 BUN 17 15 Creatinine 1.60 H 1.60 H Glucose 117 H 100 Calcium 9.0 7.9 L Liver Function 09/08/25 Range/Units 18:36 Total Bilirubin 1.0 (0.2-1.3) mg/dL AST 68 H (17-59) U/L ALT 36 (6-50) U/L Alkaline Phosphatase 55 (38-126) U/L Albumin 4.2 (3.5-5.1) g/dL Urine 09/08/25 Range/Units 19:13 Urine Color Yellow (Yellow) Urine Appearance Cloudy H (Clear) Urine pH 5.5 (5.0-9.0) Ur Specific [place] 1.013 (1.001-1.035) Urine Protein Trace (Negative) mg/dL Urine Glucose (UA) Negative (Negative) mg/dL
--- NOTE | 2025-09-09 10:51 | P.PNAN_ITS ---
Anes - Initial Pre Proc Eval Procedure: Operation Date: 09/09/25 11:15 Proposed Procedures p Cystoscopy, Left Stone Extraction, Possible Stent Placement - Mateo Davis MD Date/Time: 09/09/25 10:51 Surgeon: Munira Aldrich DO Pre Op Diagnosis: L distal ureteral stone, Fever, MANN Patient Data Age: 60 Gender: M Height: 1.75 m Weight: 73 kg Last Vital Signs Temp 37.2 C 09/09/25 10:00 Pulse 62 09/09/25 10:00 Resp 18 09/09/25 05:26 BP 135/77 09/09/25 10:00 Pulse Ox 99 09/09/25 10:00 O2 Del Method Room Air 09/09/25 10:00 Allergies Allergy/AdvReac Type Severity Reaction Status Date / Time tramadol Allergy Severe Gastrointestinal Verified 09/08/25 23:23 Upset NSAIDS (Non-Steroidal AdvReac Mild STOMACH Verified 09/08/25 23:23 Anti-Inflamma UPSET Home Medications ?Medication ?Instructions ?Recorded ?Confirmed ?Type tamsulosin 0.4 mg capsule (Flomax) 0.4 mg PO DAILY #7 caps 08/29/25 09/08/25 Rx acetaminophen 500 mg tablet 1,000 mg PO Q4-6H PRN pain 09/05/25 09/08/25 History ibuprofen 200 mg capsule 400 mg PO Q6H PRN pain 09/0509/08/25 History hydrocodone 5 mg-acetaminophen 325 1 - 2 tablet PO Q6H PRN pain #20 09/06/25 09/08/25 Rx mg tablet tabs Laboratory Tests 09/08/25 09/08/25 09/09/25 18:36 19:13 05:11 WBC 12.0 H K/mm3 9.2 K/mm3 (4.5-10.0) (4.5-10.0) RBC 4.97 M/mm3 4.34 L M/mm3 (4.6-6.20) (4.6-6.20) Hgb 13.9 L g/dL 12.1 L g/dL (14.0-18.0) (14.0-18.0) Hct 41.4 L % 37.7 L % (42.0-52.0) (42.0-52.0) MCV 83.3 fl 86.9 fl (80-100) (80-100) MCH 28.0 pg 27.9 pg (26-34) (26-34) MCHC 33.6 g/dl 32.1 g/dl (32-36) (32-36) RDW 13.0 % 13.1 % (11.5-14.5) (11.5-14.5) Plt Count 226 k/mm3 187 k/mm3 (150-375) (150-375) MPV 9.8 fl 10.2 fl (7.4-10.4) (7.4-10.4) Immature Gran % (Auto) 0.3 % (0-0.5) Neut % (Auto) 75.0 H % (45.5-73.1) Lymph % (Auto) 13.1 L % (18.3-44.2) [place] % (Auto) 10.6 H % (2.6-8.5) Eos % (Auto) 0.7 % (0-4.4) Baso % (Auto) 0.3 % (0.2-1.2) Lymph # (Auto) 1.57 K/mm3 (0.9-3.2) [place] # (Auto) 1.3 H K/mm3 (0.1-0.6) Eos # (Auto) 0.1 K/mm3 (0-0.3) Baso # (Auto) 0.0 K/mm3 (0.0-0.1) Abs Immat Gran (auto) 0.04 H K/mm3 (0.00-0.031) Absolute Neuts (auto) 9.0 H K/mm3 (1.3-6.7) Absolute Nucleated RBC 0.000 K/mm3 (0.0-0.012) Nucleated RBC % 0.0 % (0.0-0.2) Sodium 135 L mmol/L 135 L mmol/L (137-145) (137-145) Potassium 3.4 mmol/L 3.7 mmol/L (3.4-5.0) (3.4-5.0) Chloride 106 mmol/L 107 mmol/L (98-107) (98-107) Carbon Dioxide 20 L mmol/L 23 mmol/L (22-30) (22-30) Anion Gap 9 mmol/L 5 mmol/L (4-12) (4-12) BUN 17 mg/dL 15 mg/dL (9-20) (9-20) Creatinine 1.60 H mg/dL 1.60 H mg/dL (0.7-1.3) (0.7-1.3) Estim Creat Clear Calc 44 ml/min 45 ml/min Estimated GFR 44 L 44 L (59 - ) (59 - ) Glucose 117 H mg/dL 100 mg/dL (65-110) (65-110) Lactic Acid 1.8 mmol/L (0.7-2.0) Calcium 9.0 mg/dL 7.9 L mg/dL (8.4-10.2) (8.4-10.2) Total Bilirubin 1.0 mg/dL (0.2-1.3) AST 68 H U/L (17-59) ALT 36 U/L (6-50) Alkaline Phosphatase 55 U/L (38-126) Total Protein 7.6 g/dL (6.3-8.2) Albumin 4.2 g/dL (3.5-5.1) Urine Color Yellow (Yellow) Urine Appearance Cloudy H (Clear) Urine pH 5.5 (5.0-9.0) Ur Specific [place] 1.013 (1.001-1.035) Urine Protein Trace mg/dL (Negative) Urine Glucose (UA) Negative mg/dL (Negative) Urine Ketones Negative mg/dL (Negative) Ur Blood (Man) 3+ H (Negative) Urine Nitrate Negative (Negative) Urine Bilirubin Negative (Negative) Urine Urobilinogen 1.0 mg/dL (<2.0) Leukocyte Esterase Rfl Trace H RAMESH/UL (Negative) Urine RBC >100 H /hpf (0-2) Urine WBC 0-5 /hpf (0-3) Ur Squamous Epith Cells None seen /hpf (Few) Urine Bacteria None seen /hpf Urine Casts 0-2 Patient hx anesthesia problems: none Family hx anesthesia problems: none Results Review: All pre-operative results and documents have been reviewed as part of the pre- operative evaluation. [facility] Past Medical History Medical History Cigarette smoker COPD (chronic obstructive pulmonary disease) Herniation of intervertebral disc between L5 and S1 Hiatal hernia Small Benign tumor of pituitary gland (~2012) CVA (cerebral vascular accident) (~2012) Patient states the presented with left-sided weakness and had a CVA was at that time that they found the pituitary tumor Alopecia universalis Kidney stones Multiple Spinal stenosis Cervical spine status post fusion Duodenitis (2020) Due to NSAID use with moderate erosive changes GERD (gastroesophageal reflux disease) Surgical History Surgical History History of hemorrhoidectomy History of fusion of cervical spine (~2012) History of arthroscopy of both knees Status post surgical removal of ganglion cyst (08/2015) Left wrist History of esophagogastroduodenoscopy (EGD) (05/2025) Dr. Monroe History of extracorporeal shockwave lithotripsy (ESWL) Most recent treatment was 09/06/[address] Enamorado Status post selective transsphenoidal pituitary adenomectomy (~2012) History of left heart catheterization (10/2014) Performed by Dr. Faust due to chest pain with risk factors and demonstrated normal coronary arteries Family History Family History Mother Ovarian cancer Breast cancer Renal cell carcinoma Heart disease, Onset Age: 60 Cerebrovascular accident Diabetes mellitus Father Alcoholic cirrhosis Acute myocardial infarction, Onset Age: 60 Sibling Lung cancer Uterine cancer Diabetes mellitus Social History Social History Social History: Patient is and lives alone. 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 He has smoked up to 1.5 packs of cigarettes per day since he was a teenager. He drinks on moderate amount couple of times a year. He smokes marijuana and uses edibles for pain management. He has 2 sons. Code status: Full code Surrogate decision maker: Mother Smoking packs per day: 1 Smoking cigarettes per day: 20.0 Years smoked: 40 Smoking pack-years: 40.00 Smoking status: Current every day smoker Tobacco type: cigarettes Alcohol intake: current Substance use: current Substance use type: marijuana Other substance usage details: MEDICAL CARD Lack of Transportation: No Lack of Food: Sometimes True Current Housing: I Have Housing Concerned About Future Housing: No Difficulty Paying Gas/Electric Bills: No Difficulty Paying for Meds: YES Currently Unemployed: No Education: High School Diploma/GED Difficulty w/ Childcare or Family Care: No Living arrangements: with family Spiritual care concerns: No Anes - Eval Final PreProcedure Day of Procedure 09/09/25 10:51 Patient weight: normal Heart: regular rate and rhythm Lungs: decreased breath sounds Airway: Mallampati scale class II Neurological: alert and oriented Last oral intake: >/= 8 hours ASA classification: III Emergent: no Anesthetic plan: proceed Anesthesia type and monitoring: general LMA and standard monitoring Results Review: All pre-operative results and documents have been reviewed as part of the pre- operative evaluation. Informed Consent: The patient's anesthetic plan and its attendant risks and benefits were discussed with the patient/family/POA. Questions were solicited and answers provided to the satisfaction of the patient/family/POA.
--- NOTE | 2025-09-09 11:04 | WPDHPUPDATE1 ---
History and Physical Update Update Date/Time: 09/09/25 11:04 History and Physical has been reviewed, including an updated exam of the patient. There are NO changes in the patient's condition. Risks, benefits, and alternatives have been discussed and questions answered. Patient agrees to proceed with procedure.
[2025-09-09] MEDS: LIDOCAINE 2% GEL UROJET 10 ML PKG MUCOUS MEM (11:24)
--- NOTE | 2025-09-09 11:44 | P.OP_ITS ---
Procedure Note - Detailed Date of Procedure 09/09/25 Pre-op Diagnosis Ureteral stone Post-op Diagnosis Same Procedure Performed Cystoscopy, left retrograde pyelogram, left ureteroscopy, left stent placement Surgeon Mateo Davis MD Anesthesia General and Local (Lidocaine jelly) Indications This is a gentleman status post lithotripsy. He has a fragment in his ureter on CT scan. He would like intervention to remove the stone He understands risks of bleeding, infection, inability of the stone, damage to t he urinary tract. He agrees to proceed Description of Procedure His correctly identified. Informed consent obtained. For the operating room. He was given general anesthesia. He was placed in dorsal lithotomy position. He was prepped draped sterile fashion. Given appropriate perioperative antibiotics. Time-out performed. Cystoscopy revealed mild trabeculations. Otherwise bladder was normal. I did retrograde pyelogram on the left. No extravasation. Mild hydronephrosis. No clear filling defect was seen. I placed a guidewire to the kidney. I dilated the ureter the 810 dilator. I performed ureteroscopy. I was able to get the rigid ureteral scope to the mid ureter. No stone was seen. There were several small fragments were washed out. There was redness and edema at the ureter with the previous stone was stuck. I then cleared the ureter by using the flexible ureteral scope to take it all the way to the kidney. No stone was seen in the kidney. No stone was seen in the ureter. In light of his pain I elected to leave a left ureteral stent. I placed a 4.8 variable length stent. Proximal coil in the upper pole kidney and renal pelvis. Distal coil in the bladder. The bladder was drained. Uro jet was applied. He was awakened transferred to PACU in stable condition Estimated Blood Loss 0 Urine Output 500 Pathology None sent Complications No immediate complications Condition Stable Disposition PACU
[2025-09-09] MEDS: SODIUM CHLORIDE 0.9% IV 1,000 ML 100 ML IV CONT ×2 (12:46→20:26)
--- NOTE | 2025-09-09 16:45 | P.PNIM_ITS ---
Progress Note: A&P Assessment and Plan (1) Fever: Qualifiers: Fever type: unspecified Qualified Code(s): R50.9 - Fever, unspecified Code(s): R50.9 - Fever, unspecified Status: Acute (2) Hydronephrosis with ureteral calculus: Code(s): N13.2 - Hydronephrosis with renal and ureteral calculous obstruction Status: Acute (3) History of lithotripsy: Code(s): Z98.890 - Other specified postprocedural states Status: Acute (4) MANN (acute kidney injury): Code(s): N17.9 - Acute kidney failure, unspecified Status: Acute (5) Calculus of left ureter: Code(s): N20.1 - Calculus of ureter Status: Acute (6) Cigarette smoker: Code(s): F17.210 - Nicotine dependence, cigarettes, uncomplicated Status: Acute Plan The patient fever with persistent obstructing distal left ureteral stone list subsequent obstructive hydronephrosis. Given the fever and recent instrumentation there was concern for possible infection the on the obstructing stone. The patient has been started on empiric antibiotic therapy with Rocephin. Urology has been consulted. Patient will be NPO at midnight for anticipated cystoscopy with stent placement. Patient reports improvement in pain with Dilaudid. Patient reports episodes of nausea with pain will provide Zofran as needed. Given possible infection in the setting of fever blood cultures and urine cultures have been obtained and are pending. Will repeat CBC in a.m. will provide Tylenol as needed for fever. Patient does have acute kidney injury likely due to ureteral obstruction. Patient received 2 L normal saline bolus in the ER and will continue IV fluid hydration at 100 mL an hour. Will hold ibuprofen although patient states he has not been taking ibuprofen at home. Will repeat BMP in a.m. and monitor urine output closely. Patient does continuously smoke cigarettes. He is not interested in smoking cessation education at this time. He does not want a nicotine patch. Patient has been admitted as observation status. Patient s/p lithotripsy presents with obstructive uropathy with hydronephrosis and fever was seen by the urologist and had cystoscopy, left retrograde pyelogram, left ureteroscopy, left stent placement, patient just retuned from OR and stats feels much better, there is concern for UTI and being treated with ceftriaxone, will follow up on urine and blood culture, will monitor and further recommendation to follow. Subjective Date/time seen: 09/09/25 16:45 Interval history: Fever, worsening pain from kidney stone H&P-Narrative: 51-year-old male with a past medical history of COPD with continued tobacco use, chronic pain, distant history of CVA, resection of a benign pituitary tumor, chronic constipation and multiple kidney stone who presented to the ER with fever and worsening pain from his kidney stone. The patient initially presented to the ER on the due to pain similar to prior kidney stone. He had a CT at that time which demonstrated mild left hydronephrosis with a 5 mm stone in the proximal left ureter. He reports that a few days later he passed that stone. But on the he began having recurrent left lower abdominal pain and flank pain again similar to prior kidney stones and came to the ER on the when his pain was intractable and 9/[address] demonstrated a 7 mm stone in the mid left ureter with mild hydronephrosis. Pain was intractable and he was admitted for pain management and underwent ESWL on the . He reported that he has still been having some light pink tinged urine since the procedure and had been having some mild intermittent pain. But today he developed more severe pain 8/10 in intensity in the left lower abdomen more so with some nausea and vomiting. He checked his temperature and had a T-max of 101.4?. He had been having some associated chills and some increased difficulty with urination. He denied any dysuria. He does have chronic constipation and usually has hard stools. His last bowel movement was Tuesday. He has been having some nausea that is worse when his pain crescendos. She has had a few episodes of emesis of a small amount of clear liquid. Denies any hematemesis. He reports that his pain is sharp and stabbing in nature. He reports that he usually drinks close to 2 pots of coffee a day but recently cut back to 2 cups of coffee a day. He denies any drinking of carbonated beverages. He admits that he does not drink much water because it gives him heartburn. He denies family history kidney stones. Patient s/p lithotripsy presents with obstructive uropathy with hydronephrosis and fever was seen by the urologist and had cystoscopy, left retrograde pyelogram, left ureteroscopy, left stent placement, patient just retuned from OR and stats feels much better, there is concern for UTI and being treated with ceftriaxone, will follow up on urine and blood culture, will monitor and further recommendation to follow. Review of Systems 2 Review of Systems: 12 systems were reviewed with pertinent positives and negatives per HPI. Except as documented in the HPI, all other systems were reviewed and are negative. He reports chronic neck and back pain that is stable and unchanged. He denies any difficulty swallowing. He has chronic loss of smell since his pituitary surgery in 2012. Exam Narrative: Patient is comfortable, NAD HEENT: eyes are clear and none icteric LUNGS:CTA HEART: RR S1S2 ABD: BS+, Soft and nontender Lower extremities: no edema SKIN: nonjaundiced Neuro: grossly intact. Objective Data Vital Signs Vital Signs: Vital Signs - 24 hr 09/08/25 18:14 09/08/25 19:50 09/08/25 21:12 Temperature 37.2 C 36.9 C Pulse Rate 89 57 L 54 L Respiratory Rate 20 16 17 Blood Pressure 146/82 H 118/82 130/77 Pulse Oximetry 98 99 100 Oxygen Delivery Oxygen Flow Rate 09/08/25 23:08 09/08/25 23:10 09/08/25 23:39 Temperature 36.8 C 36.8 C Pulse Rate 50 L 50 L 60 Respiratory Rate 17 17 18 Blood Pressure 119/70 119/80 122/42 L Pulse Oximetry 99 99 100 Oxygen Delivery Oxygen Flow Rate 09/08/25 23:40 09/09/25 05:26 09/09/25 08:45 Temperature 37.2 C Pulse Rate 54 L Respiratory Rate 18 Blood Pressure 139/78 Pulse Oximetry 99 Oxygen Delivery Room Air Room Air Oxygen Flow Rate 09/09/25 10:00 09/09/25 11:50 09/09/25 12:00 Temperature 37.2 C 36.9 C Pulse Rate 62 59 L 56 L Respiratory Rate 16 14 Blood Pressure 135/77 80/56 L 92/56 L Pulse Oximetry 99 100 100 Oxygen Delivery Room Air Simple Face Mask Simple Face Mask Oxygen Flow Rate 8 8 09/09/25 12:15 09/09/25 12:30 09/09/25 13:20 Temperature 35.9 C L Pulse Rate 69 73 62 Respiratory Rate 16 16 17 Blood Pressure 116/88 110/78 131/84 Pulse Oximetry 100 100 100 Oxygen Delivery Room Air Room Air Oxygen Flow Rate Intake/Output Intake/Output: Intake & Output 09/06/25 09/07/25 09/08/25 09/09/25 23:59 23:59 23:59 23:59 Intake Total 2049 124 Output Total 1675 Balance 2050 - Meds/Results Medications: Active Medications Generic Name Dose Route Start Last Admin Trade Name Freq PRN Reason Stop Dose Admin Acetaminophen 1,000 mg 09/09/25 12:37 Acetaminophen 500 Mg Tablet PO Q4H PRN Pain 1-3 Hydrocodone Bitart/Acetaminophen 1 tab 09/09/25 12:37 Hydrocodone/Acetaminophen (*Crx) 5-325 Mg Tablet PO Q6H PRN Pain 4-6 Hydromorphone HCl 1 mg 09/08/25 22:04 09/09/25 04:16 Hydromorphone Hcl Inj (*Crx) 1 Mg/Ml Syr IV PUSH 1 mg Q4H PRN Administration Pain Rated 7-10 Sodium Chloride 1,000 mls @ 100 mls/hr 09/08/25 22:05 09/09/25 12:46 Normal Saline Iv IV CONT 100 mls/hr .Q10H PRASANNA Administration Ceftriaxone Sodium 1 gm/ 50 mls @ 100 mls/hr 09/09/25 21:00 Sodium Chloride IVPB Q24H PRASANNA Morphine Sulfate 4 mg 09/08/25 22:04 09/09/25 08:46 Morphine Sulfate (*Crx) 4 Mg/Ml Inj IV PUSH 4 mg Q2H PRN Administration Pain Rated 4-6 Ondansetron HCl 4 mg 09/08/25 22:04 09/09/25 08:46 Ondansetron Inj 4 Mg/2 Ml Vial IV PUSH 4 mg Q4H PRN Administration Nausea Radiology Results: ITS Impressions Abdomen/Pelvis CT 09/09/25 08:15 IMPRESSION: 1. 5 mm stone in distal left ureter with mild left hydronephrosis and proximal hydroureter. 2. 2 mm nonobstructing left kidney stone. 3. Small sliding hiatal hernia. Retrograde Pyelogram 09/09/25 11:57 IMPRESSION: 1. A couple small lucent filling defects in the mid to distal left ureter and contrast injection which could represent injected gas bubbles or ureteral stones. See procedure note for further detail. 2. Placement of a left intraureteral stent with proximal loop in expected position at the left renal pelvis. Labs Labs: Laboratory Results - last 24 hr 09/08/25 09/08/25 09/09/25 18:36 19:13 05:11 WBC 12.0 H 9.2 RBC 4.97 4.34 L Hgb 13.9 L 12.1 L Hct 41.4 L 37.7 L MCV 83.3 86.9 MCH 28.0 27.9 MCHC 33.6 32.1 RDW 13.0 13.1 Plt Count 226 187 MPV 9.8 10.2 Immature Gran % (Auto) 0.3 Neut % (Auto) 75.0 H Lymph % (Auto) 13.1 L [place] % (Auto) 10.6 H Eos % (Auto) 0.7 Baso % (Auto) 0.3 Lymph # (Auto) 1.57 [place] # (Auto) 1.3 H Eos # (Auto) 0.1 Baso # (Auto) 0.0 Abs Immat Gran (auto) 0.04 H Absolute Neuts (auto) 9.0 H Absolute Nucleated RBC 0.000 Nucleated RBC % 0.0 Sodium 135 L 135 L Potassium 3.4 3.7 Chloride 106 107 Carbon Dioxide 20 L 23 Anion Gap 9 5 BUN 17 15 Creatinine 1.60 H 1.60 H Estim Creat Clear Calc 44 45 Estimated GFR 44 L 44 L Glucose 117 H 100 Lactic Acid 1.8 Calcium 9.0 7.9 L Total Bilirubin 1.0 AST 68 H ALT 36 Alkaline Phosphatase 55 Total Protein 7.6 Albumin 4.2 Urine Color Yellow Urine Appearance Cloudy H Urine pH 5.5 Ur Specific [place] 1.013 Urine Protein Trace Urine Glucose (UA) Negative Urine Ketones Negative Ur Blood (Man) 3+ H Urine Nitrate Negative Urine Bilirubin Negative Urine Urobilinogen 1.0 Leukocyte Esterase Rfl Trace H Urine RBC >100 H Urine WBC 0-5 Ur Squamous Epith Cells None seen Urine Bacteria None seen Urine Casts 0-2
[2025-09-09] MEDS: cefTRIAXone 1 GM in SODIUM CHLORIDE 0.9% IV 50 ML 100 ML IVPB (20:26)
[2025-09-10 04:56] VITALS: BP 97/55; PULSE 62; RESP 16; TEMP 36.1; O2SAT 99
[2025-09-10 05:42] LABS: Hematocrit 37.9 % (42.0-52.0); Hemoglobin 12.1 g/dL (14.0-18.0); Mean Corpuscular HGB Conc 31.9 g/dl (32-36); Mean Corpuscular Hemoglobin 27.7 pg (26-34); Mean Corpuscular Volume 86.7 fl (80-100); Platelet Count Result 195 k/mm3 (150-375); Red Blood Count 4.37 M/mm3 (4.6-6.20); White Blood Count 7.0 K/mm3 (4.5-10.0)
[2025-09-10] MEDS: SODIUM CHLORIDE 0.9% IV 1,000 ML 100 ML IV CONT (05:46)
[2025-09-10 06:05] LABS: Anion Gap 2 mmol/L (4-12); Blood Urea Nitrogen 15 mg/dL (9-20); Calcium 8.4 mg/dL (8.4-10.2); Carbon Dioxide 27 mmol/L (22-30); Chloride 106 mmol/L (98-107); Estimated CRCL calculation 57 ml/min; Estimated Glomerular Filt Rate 60; Glucose 84 mg/dL (65-110); Magnesium 1.9 mg/dL (1.6-2.3); Potassium 3.7 mmol/L (3.4-5.0); Sodium 135 mmol/L (137-145)
--- NOTE | 2025-09-10 09:14 | WPDUROPN2 ---
Progress Note: A&P Assessment and Plan (1) Calculus of left ureter: Code(s): N20.1 - Calculus of ureter Status: Acute Assessment and Plan: - S/p Left URS, ureteral stent placement with Dr. Davis 09/09/2025 - Significant improvement in symptoms following stent placement - Discussed stent symptoms with pt including dysuria, frequency, urgency, flank pain, bladder pain. - Discharge home on tamsulosin x 20 days and solifenacin x 20 days for stent symptoms - Pt to follow up in clinic in 1-2 weeks for stent pull - OK to discharge home from urology perspective Subjective Subjective Date/Time Seen: 09/10/25 09:14 Interval history: NAEO; resting comfortably in bed. Improved significantly as compared to yesterday. Reporting mild dysuria but otherwise without complaints. Exam Const: General: no acute distress and uncomfortable Eyes: General: appearance normal, both eyes and all related structures Resp: Effort & Inspection: normal respiratory effort Skin: General skin exam: normal color Neuro: Speech: normal speech Extrem: General: normal to inspection Psych: Speech and movement: Normal speech and movement present Objective Data Vital Signs Vital Signs: Vital Signs - 24 hr 09/09/25 10:00 09/09/25 11:50 09/09/25 12:00 Temperature 37.2 C 36.9 C Pulse Rate 62 59 L 56 L Respiratory Rate 16 14 Blood Pressure 135/77 80/56 L 92/56 L Pulse Oximetry 99 100 100 Oxygen Delivery Room Air Simple Face Mask Simple Face Mask Oxygen Flow Rate 8 8 09/09/25 12:15 09/09/25 12:30 09/09/25 13:20 Temperature 35.9 C L Pulse Rate 69 73 62 Respiratory Rate 16 16 17 Blood Pressure 116/88 110/78 131/84 Pulse Oximetry 100 100 100 Oxygen Delivery Room Air Room Air Oxygen Flow Rate 09/09/25 20:12 09/10/25 04:56 09/10/25 08:00 Temperature 36.3 C L 36.1 C L Pulse Rate 69 62 Respiratory Rate 16 16 Blood Pressure 109/71 97/55 L Pulse Oximetry 100 99 Oxygen Delivery Room Air Oxygen Flow Rate Intake/Output Intake/Output: Intake & Output 09/07/25 09/08/25 09/09/25 09/10/25 23:59 23:59 23:59 23:59 Intake Total 2049 3096.7 1723.3 Output Total 2575 575 Balance 2049 521.7 1148.3 Meds/Results Medications: Active Medications Generic Name Dose Route Start Last Admin Trade Name Freq PRN Reason Stop Dose Admin Acetaminophen 1,000 mg 09/09/25 12:37 Acetaminophen 500 Mg Tablet PO Q4H PRN Pain 1-3 Hydrocodone Bitart/Acetaminophen 1 tab 09/09/25 12:37 Hydrocodone/Acetaminophen (*Crx) 5-325 Mg Tablet PO Q6H PRN Pain 4-6 Hydromorphone HCl 1 mg 09/08/25 22:04 09/09/25 04:16 Hydromorphone Hcl Inj (*Crx) 1 Mg/Ml Syr IV PUSH 1 mg Q4H PRN Administration Pain Rated 7-10 Sodium Chloride 1,000 mls @ 100 mls/hr 09/08/25 22:05 09/10/25 05:46 Normal Saline Iv IV CONT 100 mls/hr .Q10H PRASANNA Administration Ceftriaxone Sodium 1 gm/ 50 mls @ 100 mls/hr 09/09/25 21:00 09/09/25 20:55 Sodium Chloride IVPB Infused Q24H PRASANNA Infusion Morphine Sulfate 4 mg 09/08/25 22:04 09/09/25 08:46 Morphine Sulfate (*Crx) 4 Mg/Ml Inj IV PUSH 4 mg Q2H PRN Administration Pain Rated 4-6 Ondansetron HCl 4 mg 09/08/25 22:04 09/09/25 08:46 Ondansetron Inj 4 Mg/2 Ml Vial IV PUSH 4 mg Q4H PRN Administration Nausea Radiology Results: ITS Impressions Abdomen/Pelvis CT 09/09/25 08:15 IMPRESSION: 1. 5 mm stone in distal left ureter with mild left hydronephrosis and proximal hydroureter. 2. 2 mm nonobstructing left kidney stone. 3. Small sliding hiatal hernia. Retrograde Pyelogram 09/09/25 11:57 IMPRESSION: 1. A couple small lucent filling defects in the mid to distal left ureter and contrast injection which could represent injected gas bubbles or ureteral stones. See procedure note for further detail. 2. Placement of a left intraureteral stent with proximal loop in expected position at the left renal pelvis. Labs Labs: Laboratory Results - last 24 hr 09/10/25 05:12 WBC 7.0 RBC 4.37 L Hgb 12.1 L Hct 37.9 L MCV 86.7 MCH 27.7 MCHC 31.9 L RDW 13.2 Plt Count 195 MPV 10.2 Sodium 135 L Potassium 3.7 Chloride 106 Carbon Dioxide 27 Anion Gap 2 L BUN 15 Creatinine 1.24 Estim Creat Clear Calc 57 Estimated GFR 60 Glucose 84 Calcium 8.4 Magnesium 1.9
--- NOTE | 2025-09-10 09:18 | P.DS_ITS ---
DS: Admitting Diagnosis Discharge Date 09/10/25 Admitting Diagnosis Fever, worsening pain from kidney stone DS: Discharge Diagnosis Discharge Diagnosis (1) Fever: Qualifiers: Fever type: unspecified Qualified Code(s): R50.9 - Fever, unspecified Code(s): R50.9 - Fever, unspecified Status: Acute (2) Hydronephrosis with ureteral calculus: Code(s): N13.2 - Hydronephrosis with renal and ureteral calculous obstruction Status: Acute (3) History of lithotripsy: Code(s): Z98.890 - Other specified postprocedural states Status: Acute (4) MANN (acute kidney injury): Code(s): N17.9 - Acute kidney failure, unspecified Status: Acute (5) Calculus of left ureter: Code(s): N20.1 - Calculus of ureter Status: Acute (6) Cigarette smoker: Code(s): F17.210 - Nicotine dependence, cigarettes, uncomplicated Status: Acute Plan The patient fever with persistent obstructing distal left ureteral stone list subsequent obstructive hydronephrosis. Given the fever and recent instrumen tation there was concern for possible infection the on the obstructing stone. The patient has been started on empiric antibiotic therapy with Rocephin. Urology has been consulted. Patient will be NPO at midnight for anticipated cystoscopy with stent placement. Patient reports improvement in pain with Dilaudid. Patient reports episodes of nausea with pain will provide Zofran as needed. Given possible infection in the setting of fever blood cultures and urine cultures have been obtained and are pending. Will repeat CBC in a.m. will provide Tylenol as needed for fever. Patient does have acute kidney injury likely due to ureteral obstruction. Patient received 2 L normal saline bolus in the ER and will continue IV fluid hydration at 100 mL an hour. Will hold ibuprofen although patient states he has not been taking ibuprofen at home. Will repeat BMP in a.m. and monitor urine output closely. Patient does continuously smoke cigarettes. He is not interested in smoking cessation education at this time. He does not want a nicotine patch. Patient has been admitted as observation status. Patient s/p lithotripsy presents with obstructive uropathy with hydronephrosis and fever was seen by the urologist and had cystoscopy, left retrograde pyelogram, left ureteroscopy, left stent placement, patient just retuned from OR and stats feels much better, there is concern for UTI and being treated with ceftriaxone, will follow up on urine and blood culture, will monitor and further recommendation to follow. patient was seen by urologist, patient clinical symptoms have improved and its okay to discharge home today. DS: Summary Hospital Course Hospital Course: Patient s/p lithotripsy presents with obstructive uropathy with hydronephrosis and fever was seen by the urologist and had cystoscopy, left retrograde pyelogram, left ureteroscopy, left stent placement, patient just retuned from OR and stats feels much better, there is concern for UTI and being treated with ceftriaxone, will follow up on urine and blood culture, will monitor and further recommendation to follow. patient was seen by urologist, patient clinical symptoms have improved and its okay to discharge home today. Time Spent with Patient Time attestation: Total time spent providing and/or coordinating discharge services: Exam Narrative: Patient is comfortable, NAD HEENT: eyes are clear and none icteric LUNGS:CTA HEART: RR S1S2 ABD: BS+, Soft and nontender Lower extremities: no edema SKIN: nonjaundiced Neuro: grossly intact. DS: Data Data Completed and Pending Labs on day of discharge: Labs from last 24 hours 09/10/25 05:12 WBC 7.0 RBC 4.37 L Hgb 12.1 L Hct 37.9 L MCV 86.7 MCH 27.7 MCHC 31.9 L RDW 13.2 Plt Count 195 MPV 10.2 Sodium 135 L Potassium 3.7 Chloride 106 Carbon Dioxide 27 Anion Gap 2 L BUN 15 Creatinine 1.24 Estim Creat Clear Calc 57 Estimated GFR 60 Glucose 84 Calcium 8.4 Magnesium 1.9 Discharge Plan Discharge Attending physician on discharge: Munira Aldrich Consulting providers: Ady Parry; Primo Pan; Mateo Davis; Jefry Coe; Real Nelson; Cortez Lion V. Discharging Clinician: Facundo Estrada Patient Disposition: Home Activity: as tolerated Diet: heart healthy Discharge Instructions: patient to follow discharge care instruction from his urologist and follow up as scheduled, patient to follow up with his primary care provider as soon as possible. patient is instructed if any symptoms worsen to go to nearest ER. Patient Instructions: Antibiotic Form Patient Language: Bulgarian Stand Alone Forms: General Discharge Information Follow-up/Referrals: Wilfredo Enamorado MD [Physician, Urology] - 1 Week Referral Note: Cysto, stent pull Leighton,Kash Sebastian MD [Primary Care Provider, Unknown] Discharge Medications: New cefdinir 300 mg capsule 300 mg PO Q12H Qty: 10 0RF tamsulosin 0.4 mg capsule 0.4 mg PO DAILY Qty: 20 0RF solifenacin 5 mg tablet 5 mg PO DAILY Qty: 20 0RF Continued acetaminophen 500 mg tablet 1,000 mg PO Q4-6H PRN (Reason: pain) ibuprofen 200 mg capsule 400 mg PO Q6H PRN (Reason: pain) Patient Comments: Patient has listed as allergy but stated it will cause upset stomach but needs to take something other than Tylenol hydrocodone-acetaminophen 5-325 mg tablet 1 - 2 tablet PO Q6H PRN (Reason: pain) Qty: 20 0RF tamsulosin [Flomax] 0.4 mg capsule 0.4 mg PO DAILY Qty: 7 0RF Date of admission: 09/08/25 22:04 Primary Care Provider: LeightonKash Admitting Provider: Munira Aldrich Attending physician on admission: Facundo Estrada Condition: Stable
[2025-09-10] MEDS: cefTRIAXone 1 GM in SODIUM CHLORIDE 0.9% IV 50 ML 100 ML IVPB (09:39)
== END 2025-09-10 10:21 | disposition home or self-care (01) ==
LOC: ANHED 21:01 → ANH3MEDSUR 09-09 07:32
PROVIDERS: Urology; Admitting Provider Internal Medicine; Emergency Provider Physician Assistant; PCP Family Medicine; Visit Provider Family Medicine
PROC: (CPT 52352; principal; 2025-09-09 11:15)
DX: N13.2 Hydronephrosis with renal and ureteral calculous obstruction (principal); N17.9 Acute kidney failure, unspecified; K21.9 Gastro-esophageal reflux disease without esophagitis; K44.9 Diaphragmatic hernia without obstruction or gangrene; F17.210 Nicotine dependence, cigarettes, uncomplicated; F12.90 Cannabis use, unspecified, uncomplicated; J44.9 Chronic obstructive pulmonary disease, unspecified; K59.00 Constipation, unspecified; G89.29 Other chronic pain; Z79.899 Other long term (current) drug therapy; Z79.1 Long term (current) use of non-steroidal anti-inflammatories (NSAID); Z98.1 Arthrodesis status; Z87.19 Personal history of other diseases of the digestive system; Z96.653 Presence of artificial knee joint, bilateral; Z86.73 Personal history of transient ischemic attack (TIA), and cerebral infarction without residual deficits; Z87.442 Personal history of urinary calculi; Z86.018 Personal history of other benign neoplasm; Z86.79 Personal history of other diseases of the circulatory system; Z83.3 Family history of diabetes mellitus; Z80.3 Family history of malignant neoplasm of breast; Z80.41 Family history of malignant neoplasm of ovary; Z80.51 Family history of malignant neoplasm of kidney; Z80.1 Family history of malignant neoplasm of trachea, bronchus and lung; Z82.3 Family history of stroke
CPT/HCPCS: 52332; 36415; 74176; 74420; 80048; 80053; 81001; 83605; 83735; 85025; 85027; 87040; 87086; 96361; 96365; 96375; 96376; 99285; A9270; C1769; C2617; G0378; J0696; J1171; J2003; J2250; J2270; J2405; J2704; J3010; J7030; Q9966